=== PATIENT | female | born 1975 | race Caucasian/White ===

== ENCOUNTER 2017-01-01 20:14 | Emergency (ER) | payer OTHER, MEDICAID ==
[~2017-01-01] VITALS: Ht 167.6 cm; Wt 68.0 kg
[~2017-01-01 20:14] MED LIST: ARIP5TAB6 PO; ASPI1TAB30 PO; CLON1TAB PO; CLON1TAB3 PO; DICY10CA53 PO; DIVA500T2 PO; FLUO40CA2 PO; FLUT1DIS3 IH; FLUT1DIS3 INH; GABA-587 PO; GABA800T2 PO; HYDR25TA PO; IPRA3AMP23 IH; LEVO50TA5 PO; LURA40TA PO; MELA3TAB PO; METO10TA81 PO; METR500T PO; OMEP20TA PO; ONDA4TAB10 PO; ONDA4TAB10 SL; OXCA300T PO; POTA20TA12 PO; PRAZ2CAP2 PO; PRED5TAB19 PO; SERT100T8 PO; VENTOLIN HFA18 GM IH
[2017-01-01 21:30] LABS: BASO # 0.1 x10^3/uL (0.0-0.2); BASO % 1 % (0-3); EOS % 6 % (0-3); HEMATOCRIT 43.8 % (36.0-47.0); HEMOGLOBIN 13.9 g/dL (12.0-15.5); LYMPH # 2.6 x10^3/uL (1.0-4.8); LYMPH % 36 % (24-48); MEAN CORPUSCULAR HEMOGLOBIN 26 pg (25-35); MEAN CORPUSCULAR HGB CONC 32 g/dL (31-37); MEAN CORPUSCULAR VOLUME 82 fL (79-100); MONO % 8 % (0-9); NEUT % 49 % (31-73); PLATELET COUNT 296 x10^3/uL (140-400); RED BLOOD COUNT 5.34 x10^6/uL (3.50-5.40); RED CELL DISTRIBUTION WIDTH 15.2 % (11.5-14.5); WHITE BLOOD COUNT 7.1 x10^3/uL (4.0-11.0)
[2017-01-01] MEDS ORDERED: IV NORMAL SALINE 1000ML BAG 1,000 ML IV ONE (21:30)
[2017-01-01] MEDS ORDERED: METOCLOPRAMIDE HCL 10 MG/2 ML VIAL. IV ONE (21:30)
[2017-01-01] MEDS ORDERED: DIPHENHYDRAMINE 50 MG/ML VIAL IVP ONE (21:30)
--- NOTE | 2017-01-01 21:35 | PHYS DOC ---
Past Medical History Past Medical History: Asthma, Cancer, Other Additional Past Medical Histor: CHRONIC N/V,GASTROPARESIS,OVARIAN CA,IBS Past Surgical History: Appendectomy, Hysterectomy, Oophorectomy, Other Additional Past Surgical Histo: PELVIC MESH,HERNIA,L OVARY & FALLOPIAN TUBE REMOVED Alcohol Use: None Drug Use: None Adult General Chief Complaint Chief Complaint: NAUSEA/VOMITING/DIARRHA HPI HPI 41-year-old female with a history of gastroparesis presents with a several day history of epigastric pain nausea and vomiting. She states she's vomited so hard she has her low back. She denies any melena or hematemesis. She states she' s been unable to control her symptoms with her typical medications. [] Review of Systems Review of Systems Constitutional: Denies fever or chills [] Eyes: Denies change in visual acuity, redness, or eye pain [] HENT: Denies nasal congestion or sore throat [] Respiratory: Denies cough or shortness of breath [] Cardiovascular: No additional information not addressed in HPI [] GI: Denies abdominal pain, nausea, vomiting, bloody stools or diarrhea [] : Denies dysuria or hematuria [] Musculoskeletal: Denies back pain or joint pain [] Integument: Denies rash or skin lesions [] Neurologic: Denies headache, focal weakness or sensory changes [] Endocrine: Denies polyuria or polydipsia [] Current Medications Current Medications Current Medications Medications (Trade) Dose Ordered Sig/Anmol Start Time Stop Time Status Last Admin Dose Admin Albuterol/ Ipratropium (Duoneb) 3 ml 1X ONCE 01/01/17 22:30 01/01/17 22:31 DC 01/01/17 22:32 3 ML Diphenhydramine HCl (Benadryl) 25 mg 1X ONCE 01/01/17 21:30 01/01/17 21:31 DC 01/01/17 21:34 25 MG Fentanyl Citrate (Fentanyl 2ml Vial) 50 mcg 1X ONCE 01/01/17 22:00 01/01/17 22:01 DC 01/01/17 22:00 50 MCG Metoclopramide HCl (Reglan) 10 mg 1X ONCE 01/01/17 21:30 01/01/17 21:31 DC 01/01/17 21:34 10 MG Sodium Chloride (Iv Sodium Chloride 0.9% 1000ml Bag) 1,000 ml @ 1,000 mls/hr 1X ONCE 01/01/17 21:30 01/01/17 22:29 DC 01/01/17 21:34 1,000 MLS/HR Allergies Allergies Allergies Coded Allergies Type Severity Reaction Last Updated Verified Sulfa (Sulfonamide Antibiotics) Allergy Intermediate hives 01/27/16 Yes ciprofloxacin Allergy Intermediate swelling 01/27/16 Yes ciprofloxacin HCl Allergy Intermediate swelling 01/27/16 Yes morphine Allergy Intermediate Hives-TOLERATES DILAUDID 01/27/16 Yes quetiapine fumarate Allergy Intermediate "jolts going throgh my body" 01/27/16 Yes Haloperidol Lactate Adverse Reaction Intermediate Altered Mental Status Yes erythromycin base Adverse Reaction Intermediate "IT CAUSED ME TO BE BED SICK FOR A WEEK" 01/27/16 Yes haloperidol Adverse Reaction Intermediate Altered Mental Status 01/27/16 Yes somatropin Adverse Reaction Intermediate Acathasia 01/27/16 Yes Physical Exam Physical Exam Constitutional: Well developed, well nourished, no acute distress, non-toxic appearance. [] HENT: Normocephalic, atraumatic, bilateral external ears normal, oropharynx moist, no oral exudates, nose normal. [] Eyes: PERRLA, EOMI, conjunctiva normal, no discharge. [] Neck: Normal range of motion, no tenderness, supple, no stridor. [] Cardiovascular:Heart rate regular rhythm, no murmur [] Lungs & Thorax: Mild apical wheezing no rales [] Abdomen: Bowel sounds normal, soft, no tenderness, no masses, no pulsatile masses. [] Skin: Warm, dry, no erythema, no rash. [] Back: No tenderness, no CVA tenderness. [] Extremities: No tenderness, no cyanosis, no clubbing, ROM intact, no edema. [] Neurologic: Alert and oriented X 3, normal motor function, normal sensory function, no focal deficits noted. [] Psychologic: Affect normal, judgement normal, mood normal. [] Current Patient Data Vital Signs Vital Signs Date Time Temp Pulse Resp B/P Pulse Ox O2 Delivery O2 Flow Rate FiO2 01/01/17 22:30 93 Room Air 01/01/17 22:00 20 01/01/17 20:17 97.7 76 120/81 97.7 Lab Values Laboratory Tests Test 01/01/17 20:06 3/27/17 21:05 POC Urine HCG, Qualitative Hcg negative (Negative) White Blood Count 7.1x10^3/uL (4.0-11.0) Red Blood Count 5.34x10^6/uL (3.50-5.40) Hemoglobin 13.9g/dL (12.0-15.5) Hematocrit 43.8% (36.0-47.0) Mean Corpuscular Volume 82fL (79-100) Mean Corpuscular Hemoglobin 26pg (25-35) Mean Corpuscular Hemoglobin Concent 32g/dL (31-37) Red Cell Distribution Width 15.2% (11.5-14.5) H Platelet Count 296x10^3/uL (140-400) Neutrophils (%) (Auto) 49% (31-73) Lymphocytes (%) (Auto) 36% (24-48) Monocytes (%) (Auto) 8% (0-9) Eosinophils (%) (Auto) 6% (0-3) H Basophils (%) (Auto) 1% (0-3) Neutrophils # (Auto) 3.5x10^3uL (1.8-7.7) Lymphocytes # (Auto) 2.6x10^3/uL (1.0-4.8) Monocytes # (Auto) 0.6x10^3/uL (0.0-1.1) Eosinophils # (Auto) 0.4x10^3/uL (0.0-0.7) Basophils # (Auto) 0.1x10^3/uL (0.0-0.2) Sodium Level 142mmol/L (136-145) Potassium Level 3.3mmol/L (3.5-5.1) L Chloride Level 103mmol/L (98-107) Carbon Dioxide Level 28mmol/L (21-32) Anion Gap 11 (6-14) Blood Urea Nitrogen 3mg/dL (7-20) L Creatinine 0.9mg/dL (0.6-1.0) Estimated GFR (Cockcroft-Gault) 69.7 BUN/Creatinine Ratio 3 (6-20) L Glucose Level 94mg/dL (70-99) Calcium Level 9.7mg/dL (8.5-10.1) Total Bilirubin 0.3mg/dL (0.2-1.0) Aspartate Amino Transferase (AST) 27U/L (15-37) Alanine Aminotransferase (ALT) 23U/L (14-59) Alkaline Phosphatase 124U/L (46-116) H Total Protein 6.9g/dL (6.4-8.2) Albumin 3.3g/dL (3.4-5.0) L Albumin/Globulin Ratio 0.9 (1.0-1.7) L Lipase 286U/L (73-393) Laboratory Tests 01/01/17 21:05 Laboratory Tests 01/01/17 21:05 EKG EKG [] Radiology/Procedures Radiology/Procedures [] Course & Med Decision Making Course & Med Decision Making Pertinent Labs and Imaging studies reviewed. (See chart for details) [ED course: Evaluation reveals a 41-year-old female who did not appear to be in any significant distress. Her abdominal exam was essentially benign. Her laboratory studies were reviewed and she did not appear to have anything acute going on there. She was given some IV fluids and anti-medics which did help her symptoms to some degree. I've encouraged her to follow with her family doctor this week for recheck. She was also wheezing a little bit was given 1 DuoNeb treatment which did completely resolve her symptoms.] Dragon Disclaimer Dragon Disclaimer This electronic medical record was generated, in whole or in part, using a voice recognition dictation system. Departure Departure Impression: Primary Impression: Abdominal pain Disposition: 01 HOME, SELF-CARE Condition: IMPROVED Referrals: ANGEL ANDERSON Jr, MD (PCP) Patient Instructions: Gastroparesis Additional Instructions: Thank you for allowing us to participate in your care today. Followup with your primary care physician in 3 days if your symptoms do not improve. Return to the emergency department you have any new or concerning findings. This should be evaluated by the primary care physician and any necessary consulting services for continued management within a few days after discharge. Return to emergency room if you have any new or concerning symptoms including but not limited to fever, chills, nausea, vomiting, intractable pain, any new rashes, chest pain, shortness of air, uncontrolled bleeding, difficulty breathing, and/or vision loss. You may have been prescribed medication that can change in your level of thinking and ability to operate machinery. These medications include hydrocodone and Ativan. Also, Benadryl has been known to do this as well. Be sure to check with your pharmacist and ask if the medications you've prescribed can affect your level of consciousness. I recommend not operating heavy machinery or driving while on medication such as these. Scripts Promethazine HCl (Phenergan)25 Mg Supp.rect25 Mg RC Q6HRS PRN VOMITING #10 SUPP.RECT Prov:JORGE ARIAS DO 01/01/17 Problem Qualifiers Primary Impression: Abdominal pain Abdominal location: generalized Qualified Code: R10.84 - Generalized abdominal pain JORGE ARIAS DO Jan 01, 2017 21:35
[2017-01-01 21:45] LABS: CALCIUM 9.7 mg/dL (8.5-10.1); CREATININE 0.9 mg/dL (0.6-1.0); GFR 69.7; POTASSIUM 3.3 mmol/L (3.5-5.1)
[2017-01-01 21:51] LABS: ALBUMIN 3.3 g/dL (3.4-5.0); ALBUMIN/GLOBULIN RATIO 0.9 (1.0-1.7); TOTAL BILIRUBIN 0.3 mg/dL (0.2-1.0); TOTAL PROTEIN 6.9 g/dL (6.4-8.2)
[2017-01-01] MEDS ORDERED: FENTANYL PF 100 MCG/2 ML VIAL. IV ONE (22:00)
[2017-01-01] MEDS ORDERED: IPRATRPIUM/ALBUTEROL 0.5/2.5MG 3 ML NEBU. NEB ONE (22:30)
[2017-01-01 23:00] VITALS: BP 103/64
[2017-01-01] MEDS ORDERED: PROM25SU32 RC (23:21)
== END 2017-01-01 23:40 | disposition home or self-care (01) ==
LOC: ER 20:14
DX: R10.13 Epigastric pain (principal); R11.2 Nausea with vomiting, unspecified; M54.5 Low back pain; J45.909 Unspecified asthma, uncomplicated; K58.9 Irritable bowel syndrome, unspecified; Z90.710 Acquired absence of both cervix and uterus; Z90.49 Acquired absence of other specified parts of digestive tract; Z90.721 Acquired absence of ovaries, unilateral; Z88.1 Allergy status to other antibiotic agents; Z88.2 Allergy status to sulfonamides; Z88.5 Allergy status to narcotic agent; Z88.8 Allergy status to other drugs, medicaments and biological substances
CPT/HCPCS: 36415; 80053; 81025; 83690; 85027; 94250; 94640; 96361; 96374; 96375; 99285; J1200; J2765; J3010; J7030; J7620

== ENCOUNTER 2017-03-01 22:00 | Emergency (ER) | payer OTHER, MEDICAID ==
[~2017-03-01] VITALS: Ht 167.6 cm; Wt 72.6 kg
[~2017-03-01 22:00] MED LIST changes: +ARIP5TAB13 PO; -ARIP5TAB6 PO; -MELA3TAB PO; +MELA3TAB2 PO; -OMEP20TA PO; +OMEP20TA8 PO; +PROM25SU32 RC
[2017-03-01 22:40] VITALS: BP 103/75
[2017-03-01 22:49] LABS: BASO % 0 % (0-3); EOS % 5 % (0-3); HEMOGLOBIN 15.1 g/dL (12.0-15.5); LYMPH # 2.5 x10^3/uL (1.0-4.8); LYMPH % 38 % (24-48); MEAN CORPUSCULAR HEMOGLOBIN 26 pg (25-35); MEAN CORPUSCULAR HGB CONC 33 g/dL (31-37); MEAN CORPUSCULAR VOLUME 80 fL (79-100); MONO % 8 % (0-9); NEUT % 49 % (31-73); PLATELET COUNT 312 x10^3/uL (140-400); RED BLOOD COUNT 5.77 x10^6/uL (3.50-5.40); WHITE BLOOD COUNT 6.5 x10^3/uL (4.0-11.0)
--- NOTE | 2017-03-01 22:52 | PHYS DOC ---
Past Medical History Past Medical History: Asthma, Cancer, Other Additional Past Medical Histor: CHRONIC N/V,GASTROPARESIS,OVARIAN CA,IBS Past Surgical History: Appendectomy, Hysterectomy, Oophorectomy, Other Additional Past Surgical Histo: PELVIC MESH,HERNIA,L OVARY & FALLOPIAN TUBE REMOVED Alcohol Use: None Drug Use: None Adult General Chief Complaint Chief Complaint: ABDOMINAL PAIN HPI HPI Patient is a 41 year old female who presents with nausea and vomiting times a couple days consistent with an exacerbation of her previous gastroparesis denies any hematemesis point of some very mild epigastric discomfort. She's had recurrent episodes similar to this before. Surgical history includes appendectomy and right ovary removal. Denies any fever or diarrhea denies chest pain shortness of breath or cough. Review of Systems Review of Systems Constitutional: Denies fever or chills [] Eyes: Denies change in visual acuity, redness, or eye pain [] HENT: Denies nasal congestion or sore throat [] Respiratory: Denies cough or shortness of breath [] Cardiovascular: No additional information not addressed in HPI [] GI: Denies abdominal pain, nausea, vomiting, bloody stools or diarrhea [] : Denies dysuria or hematuria [] Musculoskeletal: Denies back pain or joint pain [] Integument: Denies rash or skin lesions [] Neurologic: Denies headache, focal weakness or sensory changes [] Endocrine: Denies polyuria or polydipsia [] All review systems are negative except mentioned in the history of present illness Current Medications Current Medications Current Medications Medications (Trade) Dose Ordered Sig/Anmol Start Time Stop Time Status Last Admin Dose Admin Albuterol Sulfate (Ventolin Neb Soln) 2.5 mg 1X ONCE 03/01/17 23:00 03/01/17 23:01 DC Hydromorphone HCl (Dilaudid) 2 mg STK-MED ONCE 03/01/17 23:02 03/01/17 23:03 DC Ondansetron HCl (Zofran) 4 mg 1X ONCE 03/01/17 23:00 03/01/17 23:01 DC 03/01/17 22:49 4 MG Potassium Chloride (Klor-Con) 40 meq 1X ONCE 03/01/17 23:30 03/01/17 23:31 Sodium Chloride 1,000 ml @ 1,000 mls/hr 1X ONCE 03/01/17 23:00 03/01/17 23:59 03/01/17 22:49 1,000 MLS/HR Allergies Allergies Allergies Coded Allergies Type Severity Reaction Last Updated Verified Sulfa (Sulfonamide Antibiotics) Allergy Intermediate hives 01/27/16 Yes ciprofloxacin Allergy Intermediate swelling 01/27/16 Yes ciprofloxacin HCl Allergy Intermediate swelling 01/27/16 Yes morphine Allergy Intermediate Hives-TOLERATES DILAUDID 01/27/16 Yes quetiapine fumarate Allergy Intermediate "jolts going throgh my body" 01/27/16 Yes Haloperidol Lactate Adverse Reaction Intermediate Altered Mental Status Yes erythromycin base Adverse Reaction Intermediate "IT CAUSED ME TO BE BED SICK FOR A WEEK" 01/27/16 Yes haloperidol Adverse Reaction Intermediate Altered Mental Status 01/27/16 Yes somatropin Adverse Reaction Intermediate Acathasia 01/27/16 Yes Physical Exam Physical Exam Constitutional: Well developed, well nourished, no acute distress, non-toxic appearance. [] HENT: Normocephalic, atraumatic, bilateral external ears normal, oropharynx moist, no oral exudates, nose normal. [] Eyes: PERRLA, EOMI, conjunctiva normal, no discharge. [] Neck: Normal range of motion, no tenderness, supple, no stridor. [] Cardiovascular:Heart rate regular rhythm, no murmur [] Lungs & Thorax: Bilateral breath sounds clear to auscultation [] Abdomen: Bowel sounds normal, soft, mild tenderness, no masses, no pulsatile masses. [] Skin: Warm, dry, no erythema, no rash. [] Back: No tenderness, no CVA tenderness. [] Extremities: No tenderness, no cyanosis, no clubbing, ROM intact, no edema. [] Neurologic: Alert and oriented X 3, normal motor function, normal sensory function, no focal deficits noted. [] Psychologic: Affect normal, judgement normal, mood normal. [] Current Patient Data Vital Signs Vital Signs Date Time Temp Pulse Resp B/P (MAP) Pulse Ox O2 Delivery O2 Flow Rate FiO2 03/01/17 23:04 Room Air 03/01/17 22:40 78 18 103/75 (84) 95 03/01/17 22:38 99.4 99.4 Lab Values Laboratory Tests Test 03/01/17 22:30 White Blood Count 6.5 x10^3/uL (4.0-11.0) Red Blood Count 5.77 x10^6/uL (3.50-5.40) H Hemoglobin 15.1 g/dL (12.0-15.5) Hematocrit 46.0 % (36.0-47.0) Mean Corpuscular Volume 80 fL (79-100) Mean Corpuscular Hemoglobin 26 pg (25-35) Mean Corpuscular Hemoglobin Concent 33 g/dL (31-37) Red Cell Distribution Width 17.0 % (11.5-14.5) H Platelet Count 312 x10^3/uL (140-400) Neutrophils (%) (Auto) 49 % (31-73) Lymphocytes (%) (Auto) 38 % (24-48) Monocytes (%) (Auto) 8 % (0-9) Eosinophils (%) (Auto) 5 % (0-3) H Basophils (%) (Auto) 0 % (0-3) Neutrophils # (Auto) 3.2 x10^3uL (1.8-7.7) Lymphocytes # (Auto) 2.5 x10^3/uL (1.0-4.8) Monocytes # (Auto) 0.5 x10^3/uL (0.0-1.1) Eosinophils # (Auto) 0.3 x10^3/uL (0.0-0.7) Basophils # (Auto) 0.0 x10^3/uL (0.0-0.2) Sodium Level 142 mmol/L (136-145) Potassium Level 2.9 mmol/L (3.5-5.1) *L Chloride Level 101 mmol/L (98-107) Carbon Dioxide Level 33 mmol/L (21-32) H Anion Gap 8 (6-14) Blood Urea Nitrogen 4 mg/dL (7-20) L Creatinine 1.1 mg/dL (0.6-1.0) H Estimated GFR (Cockcroft-Gault) 55.3 BUN/Creatinine Ratio 4 (6-20) L Glucose Level 87 mg/dL (70-99) Calcium Level 10.4 mg/dL (8.5-10.1) H Total Bilirubin 0.4 mg/dL (0.2-1.0) Aspartate Amino Transferase (AST) 33 U/L (15-37) Alanine Aminotransferase (ALT) 28 U/L (14-59) Alkaline Phosphatase 142 U/L (46-116) H Total Protein 7.9 g/dL (6.4-8.2) Albumin 3.5 g/dL (3.4-5.0) Albumin/Globulin Ratio 0.8 (1.0-1.7) L Lipase 225 U/L (73-393) Laboratory Tests 03/01/17 22:30 Laboratory Tests 03/01/17 22:30 EKG EKG [] Radiology/Procedures Radiology/Procedures [] Course & Med Decision Making Course & Med Decision Making Pertinent Labs and Imaging studies reviewed. (See chart for details) Plan will be to check some labs and IV fluids supportive care Potassium was slightly decreased and she was given oral potassium. [] Dragon Disclaimer Dragon Disclaimer This electronic medical record was generated, in whole or in part, using a voice recognition dictation system. Departure Departure Impression: Primary Impression: Vomiting Additional Impression: Gastroparesis Referrals: ANGEL ANDERSON Jr, MD (PCP) Problem Qualifiers ROCÍO RUVALCABA MD March 01, 2017 22:52
[2017-03-01] MEDS ORDERED: ALBUTEROL SULFATE 2.5 MG/3 ML NEBU. NEB ONE (23:00)
[2017-03-01] MEDS ORDERED: IV NORMAL SALINE 1000ML BAG 1,000 ML IV ONE (23:00)
[2017-03-01] MEDS ORDERED: ONDANSETRON PF 4 MG/2 ML VIAL. IV ONE (23:00)
[2017-03-01] MEDS ORDERED: HYDROmorphone 2 MG/ML VIAL ONE (23:02)
[2017-03-01 23:10] LABS: ALBUMIN 3.5 g/dL (3.4-5.0); ALBUMIN/GLOBULIN RATIO 0.8 (1.0-1.7); CALCIUM 10.4 mg/dL (8.5-10.1); CREATININE 1.1 mg/dL (0.6-1.0); GFR 55.3; TOTAL BILIRUBIN 0.4 mg/dL (0.2-1.0); TOTAL PROTEIN 7.9 g/dL (6.4-8.2)
[2017-03-01 23:13] LABS: POTASSIUM 2.9 mmol/L (3.5-5.1)
[2017-03-01] MEDS ORDERED: POTASSIUM CHLORIDE 20 MEQ TABLET.ER. PO ONE (23:30)
[2017-03-01] MEDS ORDERED: HYDROmorphone 2 MG/ML VIAL IV ONE (23:30)
[2017-03-01] MEDS ORDERED: PROM12.56 PO (23:44)
[2017-03-02] MEDS ORDERED: ONDANSETRON PF 4 MG/2 ML VIAL. IV ONE
[2017-03-02] MEDS ORDERED: ACETAMINOPHEN 500 MG TABLET PO ONE (00:15)
== END 2017-03-02 00:07 | disposition home or self-care (01) ==
LOC: ER 22:00
DX: R11.2 Nausea with vomiting, unspecified (principal); K31.84 Gastroparesis; J45.909 Unspecified asthma, uncomplicated; Z90.710 Acquired absence of both cervix and uterus; Z90.722 Acquired absence of ovaries, bilateral; Z90.49 Acquired absence of other specified parts of digestive tract; Z88.1 Allergy status to other antibiotic agents; Z88.5 Allergy status to narcotic agent; Z88.8 Allergy status to other drugs, medicaments and biological substances
CPT/HCPCS: 36415; 80053; 83690; 85027; 94250; 94640; 96361; 96374; 96375; 96376; 99284; J1170; J2405; J7030; 99285-25

== ENCOUNTER 2017-03-28 07:11 | Emergency (ER) | payer OTHER, MEDICAID ==
[~2017-03-28] VITALS: Ht 167.6 cm; Wt 72.6 kg
[~2017-03-28 07:11] MED LIST changes: +PROM12.56 PO
--- NOTE | 2017-03-28 07:48 | PHYS DOC ---
Past Medical History Past Medical History: Asthma, Cancer, GERD, Other Additional Past Medical Histor: CHRONIC N/V,GASTROPARESIS,OVARIAN CA,IBS Past Surgical History: Appendectomy, Hysterectomy, Oophorectomy, Other Additional Past Surgical Histo: PELVIC MESH,HERNIA,L OVARY & FALLOPIAN TUBE REMOVED Alcohol Use: None Drug Use: None Adult General Chief Complaint Chief Complaint: LOSS OF CONSCIOUSNESS HPI HPI Patient is a 41 year old female with history of gastroparesis, acid reflex, who presents today with nausea vomiting and midepigastric abdominal pain that began 3 days ago. Patient also states she's been passing out since this morning. Patient denies any chest pain or shortness of breath. Review of Systems Review of Systems Constitutional: Denies fever or chills [] Eyes: Denies change in visual acuity, redness, or eye pain [] HENT: Denies nasal congestion or sore throat [] Respiratory: Denies cough or shortness of breath [] Cardiovascular: No additional information not addressed in HPI [] GI: Nausea and vomiting : Denies dysuria or hematuria [] Musculoskeletal: Denies back pain or joint pain [] Integument: Denies rash or skin lesions [] Neurologic: syncope Endocrine: Denies polyuria or polydipsia [] Current Medications Current Medications Current Medications Medications (Trade) Dose Ordered Sig/Anmol Start Time Stop Time Status Last Admin Dose Admin Hydromorphone HCl (Dilaudid) 1 mg 1X ONCE 03/28/17 08:00 03/28/17 08:01 DC 03/28/17 08:14 1 MG Ondansetron HCl (Zofran) 4 mg 1X ONCE 03/28/17 09:30 03/28/17 09:31 DC 03/28/17 09:33 4 MG Potassium Chloride (KCl Oral Soln) 40 meq 1X ONCE 03/28/17 09:30 03/28/17 09:31 DC 03/28/17 09:33 40 MEQ Sodium Chloride 1,000 ml @ 1,000 mls/hr 1X ONCE 03/28/17 08:00 03/28/17 08:59 DC 03/28/17 08:14 1,000 MLS/HR Allergies Allergies Allergies Coded Allergies Type Severity Reaction Last Updated Verified Sulfa (Sulfonamide Antibiotics) Allergy Intermediate hives 01/27/16 Yes ciprofloxacin Allergy Intermediate swelling 01/27/16 Yes ciprofloxacin HCl Allergy Intermediate swelling 01/27/16 Yes morphine Allergy Intermediate Hives-TOLERATES DILAUDID 01/27/16 Yes quetiapine fumarate Allergy Intermediate "jolts going throgh my body" 01/27/16 Yes Haloperidol Lactate Adverse Reaction Intermediate Altered Mental Status Yes erythromycin base Adverse Reaction Intermediate "IT CAUSED ME TO BE BED SICK FOR A WEEK" 01/27/16 Yes haloperidol Adverse Reaction Intermediate Altered Mental Status 01/27/16 Yes somatropin Adverse Reaction Intermediate Acathasia 01/27/16 Yes Physical Exam Physical Exam Constitutional: Well developed, well nourished, no acute distress, non-toxic appearance. [] HENT: Normocephalic, atraumatic, bilateral external ears normal, oropharynx moist, no oral exudates, nose normal. [] Eyes: PERRLA, EOMI, conjunctiva normal, no discharge. [] Neck: Normal range of motion, no tenderness, supple, no stridor. [] Cardiovascular:Heart rate regular rhythm, no murmur [] Lungs & Thorax: Bilateral breath sounds clear to auscultation [] Abdomen: Healed old surgical incision on the mid abdomen. Bowel sounds normal, soft, mild midepigastric abdominal tenderness, no right upper quadrant or right lower quadrant tenderness. No masses, no pulsatile masses. [] Skin: Warm, dry, no erythema, no rash. [] Back: No tenderness, no CVA tenderness. [] Extremities: No tenderness, no cyanosis, no clubbing, ROM intact, no edema. [] Neurologic: Alert and oriented X 3, normal motor function, normal sensory function, no focal deficits noted. [] Psychologic: Affect normal, judgement normal, mood normal. [] Current Patient Data Vital Signs Vital Signs Date Time Temp Pulse Resp B/P (MAP) Pulse Ox O2 Delivery O2 Flow Rate FiO2 03/28/17 09:30 60 18 96 03/28/17 07:29 97.8 101/62 (75) Room Air 97.8 Lab Values Laboratory Tests Test 03/28/17 07:49 03/28/17 08:07 White Blood Count 6.8 x10^3/uL (4.0-11.0) Red Blood Count 4.89 x10^6/uL (3.50-5.40) Hemoglobin 13.2 g/dL (12.0-15.5) Hematocrit 39.9 % (36.0-47.0) Mean Corpuscular Volume 82 fL (79-100) Mean Corpuscular Hemoglobin 27 pg (25-35) Mean Corpuscular Hemoglobin Concent 33 g/dL (31-37) Red Cell Distribution Width 16.3 % (11.5-14.5) H Platelet Count 273 x10^3/uL (140-400) Neutrophils (%) (Auto) 58 % (31-73) Lymphocytes (%) (Auto) 29 % (24-48) Monocytes (%) (Auto) 7 % (0-9) Eosinophils (%) (Auto) 5 % (0-3) H Basophils (%) (Auto) 1 % (0-3) Neutrophils # (Auto) 4.0 x10^3uL (1.8-7.7) Lymphocytes # (Auto) 2.0 x10^3/uL (1.0-4.8) Monocytes # (Auto) 0.5 x10^3/uL (0.0-1.1) Eosinophils # (Auto) 0.3 x10^3/uL (0.0-0.7) Basophils # (Auto) 0.1 x10^3/uL (0.0-0.2) Sodium Level 145 mmol/L (136-145) Potassium Level 2.7 mmol/L (3.5-5.1) *L Chloride Level 105 mmol/L (98-107) Carbon Dioxide Level 33 mmol/L (21-32) H Anion Gap 7 (6-14) Blood Urea Nitrogen 4 mg/dL (7-20) L Creatinine 1.1 mg/dL (0.6-1.0) H Estimated GFR (Cockcroft-Gault) 55.3 BUN/Creatinine Ratio 4 (6-20) L Glucose Level 68 mg/dL (70-99) L Calcium Level 10.1 mg/dL (8.5-10.1) Total Bilirubin 0.3 mg/dL (0.2-1.0) Aspartate Amino Transferase (AST) 25 U/L (15-37) Alanine Aminotransferase (ALT) 22 U/L (14-59) Alkaline Phosphatase 111 U/L (46-116) Troponin I Quantitative 0.020 ng/mL (0.000-0.055) Total Protein 6.5 g/dL (6.4-8.2) Albumin 2.9 g/dL (3.4-5.0) L Albumin/Globulin Ratio 0.8 (1.0-1.7) L Lipase 233 U/L (73-393) Ethyl Alcohol Level < 10 mg/dL (0-10) Urine Collection Type Unknown Urine Color Yellow Urine Clarity Cloudy Urine pH 8.0 Urine Specific [place] 1.015 Urine Protein 30 mg/dL (NEG-TRACE) Urine Glucose (UA) Negative mg/dL (NEG) Urine Ketones (Stick) Negative mg/dL (NEG) Urine Blood Negative (NEG) Urine Nitrite Negative (NEG) Urine Bilirubin Negative (NEG) Urine Urobilinogen Dipstick 0.2 mg/dL (0.2 mg/dL) Urine Leukocyte Esterase Small (NEG) Urine RBC Occ /HPF (0-2) Urine WBC 11-20 /HPF (0-4) Urine Squamous Epithelial Cells Occ /LPF Urine Amorphous Sediment Present /HPF Urine Bacteria Mod /HPF (0-FEW) Urine Opiates Screen Neg (NEG) Urine Methadone Screen Neg (NEG) Urine Barbiturates Neg (NEG) Urine Phencyclidine Screen Neg (NEG) Urine Amphetamine/Methamphetamine Neg (NEG) Urine Benzodiazepines Screen Neg (NEG) Urine Cocaine Screen Neg (NEG) Urine Cannabinoids Screen Pos (NEG) Urine Ethyl Alcohol Neg (NEG) Laboratory Tests 03/28/17 07:49 Laboratory Tests 03/28/17 07:49 EKG EKG [address] Arriaga, sinus rhythm, HR 69 no STEMI[] Radiology/Procedures Radiology/Procedures [] Course & Med Decision Making Course & Med Decision Making Pertinent Labs and Imaging studies reviewed. (See chart for details) This is a 41-year-old female patient with history of gastroparesis who presents today with nausea vomiting for 3 days and syncope episodes since this morning. CT of the head was negative for any acute findings. CBC, lipase with no acute findings. Urine with small amount of leukocytes and bacteria. Highly suspect it's contaminated. Patient has no urgency frequency or dysuria. CMP with potassium of 2.7. Patient was given oral potassium 40 mEq 2 in the ED. Discharged with potassium by mouth. Patient is tolerating by mouth intake well after receiving IV fluid Dilaudid and Zofran. We recommended patient to follow up with the primary care doctor. Patient has marijuana in her system. This could also be the source of her nausea and vomiting. Advised against Marijuana use. Discharged with [facility]. Instructed to follow-up with her own PCP Leonardo Disclaimer Leonardo Disclaimer This electronic medical record was generated, in whole or in part, using a voice recognition dictation system. Departure Departure Impression: Primary Impression: Hypokalemia Additional Impressions: Gastroparesis Marijuana use Syncope Disposition: HOME, SELF-CARE Condition: STABLE Referrals: ANGEL ANDERSON Jr, MD (PCP) Follow-up with your own doctor as soon as possible Patient Instructions: Gastroparesis, Hypokalemia-Brief, Syncope, [id number] Additional Instructions: You were seen for nausea and vomiting. Please consider not using marijuana. It increases episodes of nausea and vomiting. Increase your dietary potassium intake. Foods like bananas help. Take the potassium pills as prescribed as ordered. Follow-up with your doctor as soon as possible. Scripts Potassium Chloride (POTASSIUM CHLORIDE) 20 Meq Tablet.er 20 MEQ PO DAILY, #5 TAB.SR Prov: DANNY MALCOLM APRN 03/28/17 Ondansetron (ZOFRAN ODT) 4 Mg Tab.rapdis 1 TAB SL Q8HRS, #15 TAB Prov: DANNY MALCOLM APRN 03/28/17 Problem Qualifiers Additional Impressions: Syncope Syncope type: unspecified Qualified Codes: R55 - Syncope and collapse DANNY MALCOLM APRN Mar 28, 2017 07:48
[2017-03-28 07:58] LABS: BASO # 0.1 x10^3/uL (0.0-0.2); BASO % 1 % (0-3); EOS % 5 % (0-3); HEMATOCRIT 39.9 % (36.0-47.0); HEMOGLOBIN 13.2 g/dL (12.0-15.5); LYMPH % 29 % (24-48); MEAN CORPUSCULAR HEMOGLOBIN 27 pg (25-35); MEAN CORPUSCULAR HGB CONC 33 g/dL (31-37); MEAN CORPUSCULAR VOLUME 82 fL (79-100); MONO % 7 % (0-9); NEUT % 58 % (31-73); PLATELET COUNT 273 x10^3/uL (140-400); RED BLOOD COUNT 4.89 x10^6/uL (3.50-5.40); RED CELL DISTRIBUTION WIDTH 16.3 % (11.5-14.5); WHITE BLOOD COUNT 6.8 x10^3/uL (4.0-11.0)
[2017-03-28] MEDS ORDERED: HYDROmorphone 2 MG/ML VIAL IV ONE ×2 (08:00→10:15)
[2017-03-28] MEDS ORDERED: ONDANSETRON PF 4 MG/2 ML VIAL. IV ONE ×2 (08:00→09:30)
[2017-03-28] MEDS ORDERED: IV NORMAL SALINE 1000ML BAG 1,000 ML IV ONE (08:00)
[2017-03-28 08:14] LABS: ALBUMIN 2.9 g/dL (3.4-5.0); ALBUMIN/GLOBULIN RATIO 0.8 (1.0-1.7); CALCIUM 10.1 mg/dL (8.5-10.1); CREATININE 1.1 mg/dL (0.6-1.0); GFR 55.3; TOTAL BILIRUBIN 0.3 mg/dL (0.2-1.0); TOTAL PROTEIN 6.5 g/dL (6.4-8.2)
[2017-03-28 08:19] LABS: POTASSIUM 2.7 mmol/L (3.5-5.1)
[2017-03-28 08:25] LABS: BILIRUBIN,URINE NEGATIVE (NEG); GLUCOSE,URINE NEGATIVE (NEG); NITRITE,URINE NEGATIVE (NEG); PROTEIN,URINE 30 mg/dL (NEG-TRACE); UROBILINOGEN,URINE 0.2 mg/dL (0.2 mg/dL)
[2017-03-28 08:29] LABS: BACTERIA,URINE MOD /HPF (0-FEW); RBC,URINE OCC /HPF (0-2); SQUAMOUS EPITHELIAL CELL,UR OCC /LPF
[2017-03-28] MEDS ORDERED: POTASSIUM CHLORIDE 20 MEQ/15 ML ORAL LIQUID. PO ONE ×2 (08:30→09:30)
[2017-03-28 08:32] LABS: BARBITURATES NEG (NEG); BENZODIAZEPINES NEG (NEG); CANNABINOIDS POS (NEG); COCAINE NEG (NEG); METHADONE NEG (NEG); OPIATES NEG (NEG); PHENCYCLIDINE NEG (NEG)
--- NOTE | 2017-03-28 08:32 | RAD ---
Indication syncopal episode. Noncontrast images of the head were obtained and are compared to an examination almost 2 years earlier. The calvarium appears unremarkable. The visualized paranasal sinuses appear normal. There is no subdural or epidural hematoma. Ventricles and sulci are normal. There is no mass or midline shift. No hemorrhage is seen. No acute intracranial finding is apparent. IMPRESSION: No acute or significant finding seen on noncontrast CT images of the head PQRS Compliance Statement: One or more of the following individualized dose reduction techniques were utilized for this examination: 1. Automated exposure control 2. Adjustment of the mA and/or kV according to patient size 3. Use of iterative reconstruction technique
--- NOTE | 2017-03-28 08:40 | ACF ---
Admission Forms Criteria SYNCOPE Clinical Indications for Admission to Inpatient Care ( Place 'X' for any and all applicable criteria): Admission is indicated for syncope and ANY ONE of the following (1)(2)(3)(4)(5) (6)(7) : [X]I. Inpatient admission required rather than observation care (Also use Syncope: Observation Care Criteria as appropriate) because of ANY ONE of the following: [ ]a) Hemodynamic instability that is severe or persistent [ ]b) Cardiac arrhythmias of immediate concern identified or strongly suspected (eg, needs electrophysiologic study) [ ]c) Acute coronary syndrome identified (Also use Myocardial Infarction or Angina Criteria form ) [ ]d) Structural cardiac disorder (eg, aortic stenosis) suspected as cause that requires immediate correction [ ]e) Respiratory symptoms (eg, dyspnea, tachypnea) that are severe or persistent [ ]f) Neurologic signs or symptoms that are severe or persistent ( eg, stroke, seizures, altered mental status) [ ]g) Severe electrolyte abnormalities requiring inpatient care [ ]h) Supplemental oxygen or respiratory treatment for over 24 hrs that are performable only in acute inpatient setting [ ]i) IV fluid to replace significant ongoing (eg, for over 24 hrs ) losses (>3 L/m2 per day) [ ]j) Continuous intravenous infusion of anticoagulation, platelet inhibitor, vasoactive, or antiarrhythmic medication(15)(16) [ ]k) Pulmonary artery catheter monitoring [ ]l) Temporary pacemaker placement(17) [ ]m) Emergent cardioversion(18) [X]n) Other conditions, treatment or monitoring requiring inpatient admission [ ]II. Suspicion of imminently dangerous cause (eg, rare causes like pericardial tamponade, pulmonary embolism) [ ]III. Syncope causing severe injury requiring hospitalization Extended stay beyond goal length of stay may be needed for(28) [ ]a) Dangerous arrhythmia(15)(23)(27)(29) [ ]b) Myocardial ischemia [ ]c) Seizure disorder [ ]d) Syncope-related injuries The original [employer] content created by [employer] has been revised. The portions of the content which have been revised are identified through the use of italic text or in bold, and [employer] has neither reviewed nor approved the modified material. All other unmodified content is copyright [employer]. Please see references footnoted in the original [facility] edition 2016 JUSTINO NAVARRETE Mar 28, 2017 08:40
[2017-03-28 09:30] VITALS: BP 105/63
[2017-03-28] MEDS ORDERED: ONDA4TAB10 SL (10:05)
[2017-03-28] MEDS ORDERED: POTA20TA82 PO (10:05)
[2017-03-28] MEDS ORDERED: PROCHLORPERAZINE 10 MG/2 ML VIAL. IV ONE (10:15)
--- NOTE | 2017-03-28 15:02 | EKG ---
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
== END 2017-03-28 10:42 | disposition home or self-care (01) ==
LOC: ER 07:11
DX: K31.84 Gastroparesis (principal); R55 Syncope and collapse; E87.6 Hypokalemia; J45.909 Unspecified asthma, uncomplicated; K21.9 Gastro-esophageal reflux disease without esophagitis; K58.9 Irritable bowel syndrome, unspecified; F12.90 Cannabis use, unspecified, uncomplicated; Z90.49 Acquired absence of other specified parts of digestive tract; Z90.721 Acquired absence of ovaries, unilateral; Z88.2 Allergy status to sulfonamides; Z88.5 Allergy status to narcotic agent; Z88.8 Allergy status to other drugs, medicaments and biological substances
CPT/HCPCS: 36415; 70450; 80053; 80305; 80320; 81001; 83690; 84484; 85027; 93005; 96361; 96374; 96375; 96376; 99285; J0780; J1170; J2405; J7030; G0480; G0481

== ENCOUNTER 2017-04-15 15:07 | Emergency (ER) | payer OTHER, MEDICAID ==
[~2017-04-15] VITALS: Ht 167.6 cm; Wt 72.6 kg
[~2017-04-15 15:07] MED LIST changes: +POTA20TA82 PO
[2017-04-15] MEDS ORDERED: ONDANSETRON PF 4 MG/2 ML VIAL. IV ONE (16:00)
[2017-04-15] MEDS ORDERED: HYDROmorphone 2 MG/ML VIAL IV ONE (16:00)
[2017-04-15] MEDS ORDERED: IV NORMAL SALINE 1000ML BAG 1,000 ML IV ONE (16:00)
--- NOTE | 2017-04-15 16:01 | PHYS DOC ---
Past Medical History Past Medical History: Asthma, Cancer, GERD, Other Additional Past Medical Histor: CHRONIC N/V,GASTROPARESIS,OVARIAN CA,IBS Past Surgical History: Appendectomy, Hysterectomy, Oophorectomy, Other Additional Past Surgical Histo: PELVIC MESH,HERNIA,L OVARY & FALLOPIAN TUBE REMOVED Alcohol Use: None Drug Use: Marijuana Adult General Chief Complaint Chief Complaint: ABDOMINAL PAIN HPI HPI Patient is a 41 year old female who presents with 3 days of intermittent chills vomiting and diarrhea. Denies fever chest pain or shortness of breath. Decreased appetite. Cough is involving gastroparesis of unknown etiology total abdominal hysterectomy which found ovarian cancer and a small mass that was encapsulated. Also has a history of hernia repair and pelvic mesh placement. Diarrhea is watery and not bloody mild to moderate severity. They poorly localized mild to moderate abdominal discomfort and pain radiates slightly to the back. No dysuria or frequency or flank pain. Review of Systems Review of Systems Constitutional: Denies fever or chills [] Eyes: Denies change in visual acuity, redness, or eye pain [] HENT: Denies nasal congestion or sore throat [] Respiratory: Denies cough or shortness of breath [] Cardiovascular: No additional information not addressed in HPI [] GI: Denies abdominal pain, nausea, vomiting, bloody stools or diarrhea [] : Denies dysuria or hematuria [] Musculoskeletal: Denies back pain or joint pain [] Integument: Denies rash or skin lesions [] Neurologic: Denies headache, focal weakness or sensory changes [] Endocrine: Denies polyuria or polydipsia [ All review systems are negative except as mentioned in the history of present illness.] Current Medications Current Medications Current Medications Medications (Trade) Dose Ordered Sig/Anmol Start Time Stop Time Status Last Admin Dose Admin Diphenhydramine HCl (Benadryl) 25 mg 1X ONCE 04/15/17 18:00 04/15/17 18:01 DC 04/15/17 17:51 25 MG Hydromorphone HCl (Dilaudid) 1 mg 1X ONCE 04/15/17 16:00 04/15/17 16:01 DC 04/15/17 16:10 1 MG Info (Do NOT chart on this entry -- for MONITORING) 1 each PRN DAILY PRN 04/15/17 17:15 04/15/17 20:01 DC Iohexol (Omnipaque 300 Mg/ml) 75 ml 1X ONCE 04/15/17 17:30 04/15/17 17:31 DC 04/15/17 17:11 75 ML Metoclopramide HCl (Reglan) 5 mg 1X ONCE 04/15/17 18:00 04/15/17 18:01 DC 04/15/17 17:50 5 MG Ondansetron HCl (Zofran) 4 mg 1X ONCE 04/15/17 16:00 04/15/17 16:01 DC 04/15/17 16:10 4 MG Sodium Chloride 1,000 ml @ 1,000 mls/hr 1X ONCE 04/15/17 16:00 04/15/17 16:59 DC 04/15/17 16:10 1,000 MLS/HR Allergies Allergies Allergies Coded Allergies Type Severity Reaction Last Updated Verified Sulfa (Sulfonamide Antibiotics) Allergy Intermediate hives 01/27/16 Yes ciprofloxacin Allergy Intermediate swelling 01/27/16 Yes ciprofloxacin HCl Allergy Intermediate swelling 01/27/16 Yes morphine Allergy Intermediate Hives-TOLERATES DILAUDID 01/27/16 Yes quetiapine fumarate Allergy Intermediate "jolts going throgh my body" 01/27/16 Yes Haloperidol Lactate Adverse Reaction Intermediate Altered Mental Status Yes erythromycin base Adverse Reaction Intermediate "IT CAUSED ME TO BE BED SICK FOR A WEEK" 01/27/16 Yes haloperidol Adverse Reaction Intermediate Altered Mental Status 01/27/16 Yes somatropin Adverse Reaction Intermediate Acathasia 01/27/16 Yes Physical Exam Physical Exam Constitutional: Well developed, well nourished, no acute distress, non-toxic appearance. [] HENT: Normocephalic, atraumatic, bilateral external ears normal, oropharynx moist, no oral exudates, nose normal. [] Eyes: PERRLA, EOMI, conjunctiva normal, no discharge. [] Neck: Normal range of motion, no tenderness, supple, no stridor. [] Cardiovascular:Heart rate regular rhythm, no murmur [] Lungs & Thorax: Bilateral breath sounds clear to auscultation [] Abdomen: Bowel sounds normal, soft, no tenderness, no masses, no pulsatile masses. [] Skin: Warm, dry, no erythema, no rash. [] Back: No tenderness, no CVA tenderness. [] Extremities: No tenderness, no cyanosis, no clubbing, ROM intact, no edema. [] Neurologic: Alert and oriented X 3, normal motor function, normal sensory function, no focal deficits noted. [] Psychologic: Affect normal, judgement normal, mood normal. [] Current Patient Data Vital Signs Vital Signs Date Time Temp Pulse Resp B/P (MAP) Pulse Ox O2 Delivery O2 Flow Rate FiO2 04/15/17 19:10 77 18 99/57 (71) 98 Room Air 04/15/17 15:48 97.8 97.8 Lab Values Laboratory Tests Test 04/15/17 15:41 04/15/17 16:00 Urine Collection Type Unknown Urine Color Yellow Urine Clarity Clear Urine pH 8.0 Urine Specific [place] <=1.005 Urine Protein Negative mg/dL (NEG-TRACE) Urine Glucose (UA) Negative mg/dL (NEG) Urine Ketones (Stick) Negative mg/dL (NEG) Urine Blood Negative (NEG) Urine Nitrite Negative (NEG) Urine Bilirubin Negative (NEG) Urine Urobilinogen Dipstick 0.2 mg/dL (0.2 mg/dL) Urine Leukocyte Esterase Negative (NEG) Urine RBC 0 /HPF (0-2) Urine WBC 0 /HPF (0-4) Urine Squamous Epithelial Cells Occ /LPF Urine Bacteria 0 /HPF (0-FEW) White Blood Count 5.1 x10^3/uL (4.0-11.0) Red Blood Count 5.39 x10^6/uL (3.50-5.40) Hemoglobin 14.6 g/dL (12.0-15.5) Hematocrit 43.8 % (36.0-47.0) Mean Corpuscular Volume 81 fL (79-100) Mean Corpuscular Hemoglobin 27 pg (25-35) Mean Corpuscular Hemoglobin Concent 33 g/dL (31-37) Red Cell Distribution Width 16.9 % (11.5-14.5) H Platelet Count 240 x10^3/uL (140-400) Neutrophils (%) (Auto) 62 % (31-73) Lymphocytes (%) (Auto) 27 % (24-48) Monocytes (%) (Auto) 7 % (0-9) Eosinophils (%) (Auto) 3 % (0-3) Basophils (%) (Auto) 1 % (0-3) Neutrophils # (Auto) 3.2 x10^3uL (1.8-7.7) Lymphocytes # (Auto) 1.4 x10^3/uL (1.0-4.8) Monocytes # (Auto) 0.4 x10^3/uL (0.0-1.1) Eosinophils # (Auto) 0.1 x10^3/uL (0.0-0.7) Basophils # (Auto) 0.0 x10^3/uL (0.0-0.2) Sodium Level 140 mmol/L (136-145) Potassium Level 4.1 mmol/L (3.5-5.1) Chloride Level 104 mmol/L (98-107) Carbon Dioxide Level 24 mmol/L (21-32) Anion Gap 12 (6-14) Blood Urea Nitrogen 2 mg/dL (7-20) L Creatinine 0.8 mg/dL (0.6-1.0) Estimated GFR (Cockcroft-Gault) 79.9 BUN/Creatinine Ratio 3 (6-20) L Glucose Level 109 mg/dL (70-99) H Calcium Level 10.7 mg/dL (8.5-10.1) H Total Bilirubin 0.3 mg/dL (0.2-1.0) Aspartate Amino Transferase (AST) 27 U/L (15-37) Alanine Aminotransferase (ALT) 22 U/L (14-59) Alkaline Phosphatase 129 U/L (46-116) H Total Protein 7.1 g/dL (6.4-8.2) Albumin 3.3 g/dL (3.4-5.0) L Albumin/Globulin Ratio 0.9 (1.0-1.7) L Lipase 347 U/L (73-393) Laboratory Tests 04/15/17 16:00 Laboratory Tests 04/15/17 16:00 EKG EKG [] Radiology/Procedures Radiology/Procedures CT abdomen and pelvis was read as negative/no acute pathology per radiology report. [] Course & Med Decision Making Course & Med Decision Making Pertinent Labs and Imaging studies reviewed. (See chart for details) [Plan will be symptomatic treatment, check labs, and CT scan abdomen and pelvis. CT abdomen and pelvis was negative labs were unremarkable. Patient improvement symptomatically treatment. 7:05 PM patient feels improved and is requesting to go home.] Dragon Disclaimer Dragon Disclaimer This electronic medical record was generated, in whole or in part, using a voice recognition dictation system. Departure Departure Impression: Primary Impression: Nausea vomiting and diarrhea Additional Impression: Abdominal pain, vomiting, and diarrhea Disposition: HOME, SELF-CARE Condition: IMPROVED Referrals: ANGEL ANDERSON Jr, MD (PCP) Patient Instructions: Diarrhea, [id number], Nausea and Vomiting, [id number] Scripts Ondansetron Hcl (ZOFRAN) 4 Mg Tablet 1 TAB PO Q6HRS, #8 TAB 0 Refills Prov: ROCÍO RUVALCABA MD 04/15/17 Problem Qualifiers ROCÍO RUVALCABA MD Apr 15, 2017 16:01
[2017-04-15 16:10] LABS: BASO % 1 % (0-3); EOS % 3 % (0-3); HEMATOCRIT 43.8 % (36.0-47.0); HEMOGLOBIN 14.6 g/dL (12.0-15.5); LYMPH # 1.4 x10^3/uL (1.0-4.8); LYMPH % 27 % (24-48); MEAN CORPUSCULAR HEMOGLOBIN 27 pg (25-35); MEAN CORPUSCULAR HGB CONC 33 g/dL (31-37); MEAN CORPUSCULAR VOLUME 81 fL (79-100); MONO % 7 % (0-9); NEUT % 62 % (31-73); PLATELET COUNT 240 x10^3/uL (140-400); RED BLOOD COUNT 5.39 x10^6/uL (3.50-5.40); RED CELL DISTRIBUTION WIDTH 16.9 % (11.5-14.5); WHITE BLOOD COUNT 5.1 x10^3/uL (4.0-11.0)
[2017-04-15 16:10] LABS: BILIRUBIN,URINE NEGATIVE (NEG); GLUCOSE,URINE NEGATIVE (NEG); NITRITE,URINE NEGATIVE (NEG); PROTEIN,URINE NEGATIVE (NEG-TRACE); UROBILINOGEN,URINE 0.2 mg/dL (0.2 mg/dL)
[2017-04-15 16:14] LABS: BACTERIA,URINE 0 /HPF (0-FEW); RBC,URINE 0 /HPF (0-2); SQUAMOUS EPITHELIAL CELL,UR OCC /LPF; WBC,URINE 0 /HPF (0-4)
[2017-04-15 16:30] LABS: CALCIUM 10.7 mg/dL (8.5-10.1); CREATININE 0.8 mg/dL (0.6-1.0); GFR 79.9; POTASSIUM 4.1 mmol/L (3.5-5.1)
[2017-04-15 16:36] LABS: ALBUMIN 3.3 g/dL (3.4-5.0); ALBUMIN/GLOBULIN RATIO 0.9 (1.0-1.7); TOTAL BILIRUBIN 0.3 mg/dL (0.2-1.0); TOTAL PROTEIN 7.1 g/dL (6.4-8.2)
[2017-04-15] MEDS ORDERED: CONTRAST GIVEN MC PRN (17:15)
[2017-04-15] MEDS ORDERED: IOHEXOL 300 MG/ML 75 ML VIAL IV ONE (17:30)
--- NOTE | 2017-04-15 17:34 | RAD ---
CT ABD PELV W/ IV CONTRST ONLY dated 04/15/2017 3:54 PM Indication:DIFFUSE ABD PAIN TODAY, [id number], PRIOR SENT, HX OVARIAN CA, HERNIA REPAIR W MESH Comparison: January 27, 2016 exam. Technique: Following injection of 75 mL of Omnipaque 300 IV, images were obtained through the abdomen and pelvis. No oral contrast was given. One or more of the following individualized dose reduction techniques were utilized for this examination: 1. Automated exposure control 2. Adjustment of the mA and/or kV according to patient size 3. Use of iterative reconstruction technique Findings: There is a small hiatal hernia. The liver and spleen are normal in size without focal lesions. The pancreas, adrenal glands, and kidneys are unremarkable. There is mild bulging of the intra-abdominal fat and a bowel loop into the space between the rectus muscles, however, this does not appear to extend into the subcutaneous fat. There postoperative changes with midline scar. Multiple clips are seen in the abdomen and retroperitoneum. The unopacified bowel loops are unremarkable. The appendix is not visualized. It may be surgically absent. In the pelvis there are clips in the along the left deep pelvic lymph node chain. No pelvic mass or adenopathy is seen. The uterus is absent. No free fluid. IMPRESSION: No acute abnormality is seen in the abdomen or pelvis. There is no evidence of bowel obstruction. Small hiatal hernia. Electronically signed by: Aissatou Jeronimo MD (04/15/2017 5:30 PM) [facility]
[2017-04-15] MEDS ORDERED: METOCLOPRAMIDE HCL 10 MG/2 ML VIAL. IV ONE (18:00)
[2017-04-15] MEDS ORDERED: diphenhydrAMINE 50 MG/ML VIAL IVP ONE (18:00)
[2017-04-15] MEDS ORDERED: ONDA4TAB7 PO (19:07)
[2017-04-15 19:10] VITALS: BP 99/57
== END 2017-04-15 19:20 | disposition home or self-care (01) ==
LOC: ER 15:07
DX: R11.2 Nausea with vomiting, unspecified (principal); R19.7 Diarrhea, unspecified; R10.9 Unspecified abdominal pain; J45.909 Unspecified asthma, uncomplicated; K21.9 Gastro-esophageal reflux disease without esophagitis; K31.84 Gastroparesis; K58.9 Irritable bowel syndrome, unspecified; F12.10 Cannabis abuse, uncomplicated; Z90.710 Acquired absence of both cervix and uterus; Z90.721 Acquired absence of ovaries, unilateral; Z98.51 Tubal ligation status; Z88.2 Allergy status to sulfonamides; Z88.5 Allergy status to narcotic agent; Z88.1 Allergy status to other antibiotic agents; Z88.8 Allergy status to other drugs, medicaments and biological substances
CPT/HCPCS: 36415; 74177; 80053; 81001; 83690; 85027; 96361; 96374; 96375; 99285; J1170; J1200; J2405; J2765; J7030; Q9967

== ENCOUNTER 2017-06-08 09:38 | Observation (INO) | payer OTHER, MEDICAID ==
[~2017-06-08] VITALS: Ht 167.6 cm; Wt 70.5 kg
[~2017-06-08 09:38] MED LIST changes: -ASPI1TAB30 PO; +ASPI1TAB31 PO; +ONDA4TAB7 PO
[2017-06-08 10:56] LABS: BASO # 0.1 x10^3/uL (0.0-0.2); BASO % 1 % (0-3); EOS % 2 % (0-3); HEMOGLOBIN 14.3 g/dL (12.0-15.5); LYMPH # 2.2 x10^3/uL (1.0-4.8); LYMPH % 27 % (24-48); MEAN CORPUSCULAR HEMOGLOBIN 27 pg (25-35); MEAN CORPUSCULAR HGB CONC 34 g/dL (31-37); MEAN CORPUSCULAR VOLUME 80 fL (79-100); MONO % 8 % (0-9); NEUT % 62 % (31-73); PLATELET COUNT 313 x10^3/uL (140-400); RED BLOOD COUNT 5.23 x10^6/uL (3.50-5.40); RED CELL DISTRIBUTION WIDTH 16.2 % (11.5-14.5); WHITE BLOOD COUNT 8.2 x10^3/uL (4.0-11.0)
[2017-06-08 11:10] LABS: ALBUMIN/GLOBULIN RATIO 0.8 (1.0-1.7); CALCIUM 9.7 mg/dL (8.5-10.1); CREATININE 1.2 mg/dL (0.6-1.0); GFR 49.8; TOTAL BILIRUBIN 0.3 mg/dL (0.2-1.0); TOTAL PROTEIN 6.9 g/dL (6.4-8.2)
[2017-06-08 11:12] LABS: POTASSIUM 2.1 mmol/L (3.5-5.1)
[2017-06-08] MEDS ORDERED: IV NORMAL SALINE 1000ML BAG 1,000 ML IV ONE (11:15)
[2017-06-08] MEDS: HYDROmorphone 2 MG/ML VIAL IV PRN ×2 (11:54→12:33)
[2017-06-08] MEDS: POTASSIUM CHLORIDE 10MEQ 100 ML IV SCH ×2 (11:57→12:46)
[2017-06-08] MEDS ORDERED: IPRATRPIUM/ALBUTEROL 0.5/2.5MG 3 ML NEBU. NEB ONE (12:00)
--- NOTE | 2017-06-08 12:16 | PHYS DOC ---
Past Medical History Past Medical History: Asthma, Cancer, GERD, Other Additional Past Medical Histor: CHRONIC N/V,GASTROPARESIS,OVARIAN CA,IBS, hypokalemia Past Surgical History: Appendectomy, Hysterectomy, Oophorectomy, Other Additional Past Surgical Histo: PELVIC MESH,HERNIA,L OVARY & FALLOPIAN TUBE REMOVED Additional Information: 10/09 ppd Alcohol Use: None Drug Use: Marijuana Adult General Chief Complaint Chief Complaint: MULTIPLE COMPLAINTS HPI HPI 42-year-old female presenting to the emergency department with intermittent palpitations at home feeling dehydrated short of breath with mild chronic epigastric abdominal pain. Her pain in her belly is nonradiating intermittent and without alleviating factors. It is been present for more than 3 weeks. Review of systems is negative for fevers chills neck stiffness confusion cyanosis lethargy. All other review of systems is negative unless otherwise noted in history of present illness. ED course: 42-year-old female presenting to the emergency department today with nausea vomiting palpitations. Triage vital signs show the patient to be mildly hypotensive likely secondary to dehydration. Patient is given IV fluids. Her potassium came back as quite low. IV potassium initiated. Magnesium within normal limits. EKG was obtained which shows sinus rhythm with a regular rate. ST segments congruent. [place] is normal. Intervals show prolonged QTC intervals. Otherwise QRS is within normal limits. The patient was then admitted to our hospital for IV fluid administration and electrolyte correction. Review of Systems Review of Systems SEE ABOVE. Current Medications Current Medications Current Medications Medications (Trade) Dose Ordered Sig/Anmol Start Time Stop Time Status Last Admin Dose Admin Albuterol/ Ipratropium (Duoneb) 3 ml 1X ONCE 06/08/17 12:00 06/08/17 12:01 DC Hydromorphone HCl (Dilaudid) 0.5 mg PRN Q30MIN PRN 06/08/17 11:15 06/08/17 11:54 0.5 MG Potassium Chloride 100 ml @ 100 mls/hr Q1H 06/08/17 11:45 06/08/17 13:44 06/08/17 11:57 100 MLS/HR Sodium Chloride 1,000 ml @ 125 mls/hr Q8H 06/08/17 11:23 06/09/17 11:22 Allergies Allergies Allergies Coded Allergies Type Severity Reaction Last Updated Verified Sulfa (Sulfonamide Antibiotics) Allergy Intermediate hives 01/27/16 Yes ciprofloxacin Allergy Intermediate swelling 01/27/16 Yes ciprofloxacin HCl Allergy Intermediate swelling 01/27/16 Yes morphine Allergy Intermediate Hives-TOLERATES DILAUDID 01/27/16 Yes Haloperidol Lactate Adverse Reaction Intermediate Altered Mental Status Yes erythromycin base Adverse Reaction Intermediate "IT CAUSED ME TO BE BED SICK FOR A WEEK" 01/27/16 Yes haloperidol Adverse Reaction Intermediate Altered Mental Status 01/27/16 Yes quetiapine fumarate Adverse Reaction Intermediate "jolts going throgh my body "06/08/17 Yes somatropin Adverse Reaction Intermediate Acathasia 01/27/16 Yes Physical Exam Physical Exam SEE ABOVE Constitutional: Well developed, well nourished, no acute distress, non-toxic appearance. [] HENT: Normocephalic, atraumatic, bilateral external ears normal, oropharynx dry , no oral exudates, nose normal. [] Eyes: PERRLA, EOMI, conjunctiva normal, no discharge. [] Neck: Normal range of motion, no tenderness, supple, no stridor. [] Cardiovascular:Heart rate regular rhythm, no murmur [] Lungs & Thorax: Bilateral breath sounds clear to auscultation [] Abdomen: Bowel sounds normal, soft, no tenderness, no masses, no pulsatile masses. [] Skin: Warm, dry, no erythema, no rash. [] Back: No tenderness, no CVA tenderness. [] Extremities: No tenderness, no cyanosis, no clubbing, ROM intact, no edema. [] Neurologic: Alert and oriented X 3, normal motor function, normal sensory function, no focal deficits noted. [] Psychologic: Affect normal, judgement normal, mood normal. [] Current Patient Data Vital Signs Vital Signs Date Time Temp Pulse Resp B/P (MAP) Pulse Ox O2 Delivery O2 Flow Rate FiO2 06/08/17 11:54 Room Air 06/08/17 11:20 83 22 97/70 (79) 99 06/08/17 09:49 98.2 98.2 Lab Values Laboratory Tests Test 06/08/17 10:10 White Blood Count 8.2 x10^3/uL (4.0-11.0) Red Blood Count 5.23 x10^6/uL (3.50-5.40) Hemoglobin 14.3 g/dL (12.0-15.5) Hematocrit 42.0 % (36.0-47.0) Mean Corpuscular Volume 80 fL (79-100) Mean Corpuscular Hemoglobin 27 pg (25-35) Mean Corpuscular Hemoglobin Concent 34 g/dL (31-37) Red Cell Distribution Width 16.2 % (11.5-14.5) H Platelet Count 313 x10^3/uL (140-400) Neutrophils (%) (Auto) 62 % (31-73) Lymphocytes (%) (Auto) 27 % (24-48) Monocytes (%) (Auto) 8 % (0-9) Eosinophils (%) (Auto) 2 % (0-3) Basophils (%) (Auto) 1 % (0-3) Neutrophils # (Auto) 5.1 x10^3uL (1.8-7.7) Lymphocytes # (Auto) 2.2 x10^3/uL (1.0-4.8) Monocytes # (Auto) 0.7 x10^3/uL (0.0-1.1) Eosinophils # (Auto) 0.2 x10^3/uL (0.0-0.7) Basophils # (Auto) 0.1 x10^3/uL (0.0-0.2) Sodium Level 138 mmol/L (136-145) Potassium Level 2.1 mmol/L (3.5-5.1) *L Chloride Level 94 mmol/L (98-107) L Carbon Dioxide Level 36 mmol/L (21-32) H Anion Gap 8 (6-14) Blood Urea Nitrogen 5 mg/dL (7-20) L Creatinine 1.2 mg/dL (0.6-1.0) H Estimated GFR (Cockcroft-Gault) 49.8 BUN/Creatinine Ratio 4 (6-20) L Glucose Level 86 mg/dL (70-99) Calcium Level 9.7 mg/dL (8.5-10.1) Magnesium Level 2.0 mg/dL (1.8-2.4) Total Bilirubin 0.3 mg/dL (0.2-1.0) Aspartate Amino Transferase (AST) 31 U/L (15-37) Alanine Aminotransferase (ALT) 23 U/L (14-59) Alkaline Phosphatase 130 U/L (46-116) H Total Protein 6.9 g/dL (6.4-8.2) Albumin 3.0 g/dL (3.4-5.0) L Albumin/Globulin Ratio 0.8 (1.0-1.7) L Lipase 360 U/L (73-393) Laboratory Tests 06/08/17 10:10 Laboratory Tests 06/08/17 10:10 EKG EKG [] Radiology/Procedures Radiology/Procedures [] Course & Med Decision Making Course & Med Decision Making Pertinent Labs and Imaging studies reviewed. (See chart for details) [] Dragon Disclaimer Dragon Disclaimer This electronic medical record was generated, in whole or in part, using a voice recognition dictation system. Departure Departure Impression: Primary Impression: Abdominal pain Additional Impressions: Gastroparesis Hypokalemia Prolonged QT interval Prolonged Q-T interval on ECG Disposition: ADMITTED INPATIENT Admitting Physician: Franco Khan Condition: STABLE Referrals: ANGEL ANDERSON Jr, MD (PCP) Problem Qualifiers BRIAN ALBARADO MD Jun 08, 2017 12:16
[2017-06-08] MEDS: IV NORMAL SALINE 1000ML BAG 1,000 ML IV SCH ×2 (12:44→21:53)
[2017-06-08 15:00] VITALS: BP 126/97
--- NOTE | 2017-06-08 16:11 | EKG ---
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
--- NOTE | 2017-06-08 16:13 | PDOC2 ---
GI CONSULT Reason For Consult: GI Upset HPI: HPI: 42 y/o female admitted through the ER w/ a variety of complaints including palpitations and weakness. She also has chronic GI issues. Reports "constant" nausea w/ frequent vomiting (usually after eating, although she does regularly tolerate certain foods like egg rolls), diffuse abdominal pain, "terrible reflux " (off PPI due to geovani overgrowth requiring a "cleanse" which she feels was caused by omeprazole), and some incontinence issues w/ stool (last BM yesterday , usually has diarrhea). Reports 50 pound weight loss since last summer (but when records reviewed has lost about 7 pounds). Last EGD and colonoscopy @ [facility] for "hematemesis" in 03/2017 were normal w/ normal random biopsies. Has also had 'scopes in the past @ [facility] and [facility]. EGD in 2010 showed chronic gastritis and colonoscopy in 2013 was normal with normal random biopsies. SBCE in 2013 was negative. Additional testing includes GES ( at this facility) in 06/2015 showing moderately delayed gastric emptying w/ T1/2 of 171 min. Uses marijuana when she's really sick. PMH is additionally significant for ovarian cancer w/ tumor removal/ oophorectomy years ago w/ hysterectomy in 2012, ventral hernia repair w/ mesh, appendectomy, ?C Diff (treated w/ vanco and Flagyl), hemorrhoids. Reglan caused muscle stiffness, has an allergy to erythromycin. No GB, liver, or pancreatic history. No NSAID use or pain medication of any kind at home. Her mother would like for her to have something now. PMH: PMH: per HPI + anxiety and depression, PTSD, ?bipolar disorder, asthma and allergies , hypothyroidism FH: Family History: Cancer (stomach cancer - great grandmother) Social History: Smoke: No ALCOHOL: none Drugs: Marijuana ROS: GEN: Denies fevers, chills, sweats HEENT: Denies blurred vision, sore throat CV: +chest pain RESP: +SOA GI: Per HPI : Denies hematuria, dysuria ENDO: +weight loss NEURO: Denies confusion, dizziness MSK: +weakness SKIN: Denies jaundice, pruritus Vitals: Vitals: Vital Signs Date Time Temp Pulse Resp B/P (MAP) Pulse Ox O2 Delivery O2 Flow Rate FiO2 06/08/17 14:50 Room Air 06/08/17 12:50 85 114/72 (86) 96 06/08/17 11:30 17 06/08/17 09:49 98.2 98.2 Labs: Labs: Laboratory Tests Test 06/08/17 10:10 White Blood Count 8.2 x10^3/uL (4.0-11.0) Red Blood Count 5.23 x10^6/uL (3.50-5.40) Hemoglobin 14.3 g/dL (12.0-15.5) Hematocrit 42.0 % (36.0-47.0) Mean Corpuscular Volume 80 fL (79-100) Mean Corpuscular Hemoglobin 27 pg (25-35) Mean Corpuscular Hemoglobin Concent 34 g/dL (31-37) Red Cell Distribution Width 16.2 % (11.5-14.5) Platelet Count 313 x10^3/uL (140-400) Neutrophils (%) (Auto) 62 % (31-73) Lymphocytes (%) (Auto) 27 % (24-48) Monocytes (%) (Auto) 8 % (0-9) Eosinophils (%) (Auto) 2 % (0-3) Basophils (%) (Auto) 1 % (0-3) Neutrophils # (Auto) 5.1 x10^3uL (1.8-7.7) Lymphocytes # (Auto) 2.2 x10^3/uL (1.0-4.8) Monocytes # (Auto) 0.7 x10^3/uL (0.0-1.1) Eosinophils # (Auto) 0.2 x10^3/uL (0.0-0.7) Basophils # (Auto) 0.1 x10^3/uL (0.0-0.2) Sodium Level 138 mmol/L (136-145) Potassium Level 2.1 mmol/L (3.5-5.1) Chloride Level 94 mmol/L (98-107) Carbon Dioxide Level 36 mmol/L (21-32) Anion Gap 8 (6-14) Blood Urea Nitrogen 5 mg/dL (7-20) Creatinine 1.2 mg/dL (0.6-1.0) Estimated GFR (Cockcroft-Gault) 49.8 BUN/Creatinine Ratio 4 (6-20) Glucose Level 86 mg/dL (70-99) Calcium Level 9.7 mg/dL (8.5-10.1) Magnesium Level 2.0 mg/dL (1.8-2.4) Total Bilirubin 0.3 mg/dL (0.2-1.0) Aspartate Amino Transf (AST/SGOT) 31 U/L (15-37) Alanine Aminotransferase (ALT/SGPT) 23 U/L (14-59) Alkaline Phosphatase 130 U/L (46-116) Total Protein 6.9 g/dL (6.4-8.2) Albumin 3.0 g/dL (3.4-5.0) Albumin/Globulin Ratio 0.8 (1.0-1.7) Lipase 360 U/L (73-393) Allergies: Coded Allergies: Sulfa (Sulfonamide Antibiotics) (Verified Allergy, Intermediate, hives, ) ciprofloxacin (Verified Allergy, Intermediate, swelling, 01/27/16) ciprofloxacin HCl (Verified Allergy, Intermediate, swelling, 01/27/16) morphine (Verified Allergy, Intermediate, Hives-TOLERATES DILAUDID, ) HIVES DEVELOPED AFTER ADMINISTRATION OF MORPHINE ON 02/06/2014 TOLERATES DILAUDID Haloperidol Lactate (Verified Adverse Reaction, Intermediate, Altered Mental Status, 01/27/16) erythromycin base (Verified Adverse Reaction, Intermediate, "IT CAUSED ME TO BE BED SICK FOR A WEEK", 01/27/16) haloperidol (Verified Adverse Reaction, Intermediate, Altered Mental Status, 01/27/16) quetiapine fumarate (Verified Adverse Reaction, Intermediate, "jolts going throgh my body", 06/08/17) somatropin (Verified Adverse Reaction, Intermediate, Acathasia, 01/27/16) Medications: Current Medications Medications (Trade) Dose Ordered Sig/Anmlo Route PRN Reason Start Time Stop Time Status Last Admin Dose Admin Sodium Chloride 1,000 ml @ 1,000 mls/hr 1X ONCE IV 06/08/17 11:15 06/08/17 12:14 DC 06/08/17 11:21 Hydromorphone HCl (Dilaudid) 0.5 mg PRN Q30MIN PRN IV SEVERE PAIN 06/08/17 11:15 06/08/17 12:33 Potassium Chloride 100 ml @ 100 mls/hr Q1H IV 06/08/17 11:45 06/08/17 13:44 DC 06/08/17 12:46 Sodium Chloride 1,000 ml @ 125 mls/hr Q8H IV 06/08/17 11:23 06/09/17 11:22 06/08/17 12:44 Albuterol/ Ipratropium (Duoneb) 3 ml 1X ONCE NEB 06/08/17 12:00 06/08/17 12:01 DC 06/08/17 12:12 Imaging: Imaging: CT A/P 04/2017 IMPRESSION: No acute abnormality is seen in the abdomen or pelvis. There is no evidence of bowel obstruction. Small hiatal hernia. PE: GEN: NAD HEENT: Atraumatic, PERRL LUNGS: CTAB HEART: RRR ABD: BS+, diffusely tender although mostly in epigastrium, soft EXTREMITY: No edema SKIN: No rashes, no jaundice NEURO/PSYCH: A & O 3, tearful A/P: A/P: Palpitations, SOA N/v, abd pain, irregular bowel habits, weight loss -previous 'scopes/GI workup as above -has lost ~7 lbs since we last saw her GERD, gastroparesis -currently has reflux treated only w/ Tums, has taken PPI in the past but feels had adverse reaction -intolerant to Reglan, allergy to erythromycin -abd surgeries as above Anxiety -- Will review w/ Dr. Hogue. Would be beneficial to retry PPI, maybe FiberCon. ?HIDA No plans to repeat EGD or colonoscopy. PRISCA ONEIL Jun 08, 2017 16:13
[2017-06-08] MEDS ORDERED: BUTORPHANOL 2 MG/ML VIAL. IV PRN (16:15)
[2017-06-08] MEDS ORDERED: ONDANSETRON PF 4 MG/2 ML VIAL. IV PRN (16:15)
--- NOTE | 2017-06-08 16:38 | PDOC2 ---
JUVENAL GODFREY ORTHODONTIST ASSISTANT 06/08/17 1638: CARDIAC CONSULT DATE OF CONSULT Date of Consult DATE: 06/08/17 TIME: 16:25 REASON FOR CONSULT Reason for Consult: Palpitations REFERRING PHYSICIAN Referring Physician: Erin SOURCE Source: Chart review, Patient HISTORY OF PRESENT ILLNESS HISTORY OF PRESENT ILLNESS This is a pleasant 42 yo female admitted for complains of nausea, vomiting and diarrhea which have been persistent for a while. Also complains of dizziness, weakness and palpitations in the last 4 days. Denies any HOLDEN but sometimes feeling SOA at rest. Denies any CP. Reports of hx of palpitations as an adolescent and was even placed on holter. Nothing was found at that time and there has been nothing recent till in the last 4 days. No hx of of known arrhythmia, CAD, VTE. She is significant for weight loss in which due to her GI problems she has not been eating that well. Denies any fever or chills. PAST MEDICAL HISTORY Cardiovascular: No pertinent hx Pulmonary: Asthma, Pneumonia GI: GERD Heme/Onc: Anemia NOS Psych: Anxiety, Depression, Other (PTSD) Musculoskeletal: Other (No pertinent history) Rheumatologic: No pertinent hx Infectious disease: No pertinent hx ENT: No pertinent hx Renal/: No pertinent hx Endocrine: Hypothyroidism Dermatology: No pertinent hx PAST SURGICAL HISTORY Past Surgical History: Appendectomy, Hernia Repair, Tonsillectomy, Hysterectomy FAMILY HISTORY Family History: Hypertension SOCIAL HISTORY Smoke: <1 pack per day Drugs: Marijuana CURRENT MEDICATIONS CURRENT MEDICATIONS Current Medications Medications (Trade) Dose Ordered Sig/Anmol Route PRN Reason Start Time Stop Time Status Last Admin Dose Admin Sodium Chloride 1,000 ml @ 1,000 mls/hr 1X ONCE IV 06/08/17 11:15 06/08/17 12:14 DC 06/08/17 11:21 Hydromorphone HCl (Dilaudid) 0.5 mg PRN Q30MIN PRN IV SEVERE PAIN 06/08/17 11:15 06/08/17 16:14 DC 06/08/17 12:33 Potassium Chloride 100 ml @ 100 mls/hr Q1H IV 06/08/17 11:45 06/08/17 13:44 DC 06/08/17 12:46 Sodium Chloride 1,000 ml @ 125 mls/hr Q8H IV 06/08/17 11:23 06/09/17 11:22 06/08/17 12:44 Albuterol/ Ipratropium (Duoneb) 3 ml 1X ONCE NEB 06/08/17 12:00 06/08/17 12:01 DC 06/08/17 12:12 ALLERGIES ALLERGIES: Coded Allergies: Sulfa (Sulfonamide Antibiotics) (Verified Allergy, Intermediate, hives, ) ciprofloxacin (Verified Allergy, Intermediate, swelling, 01/27/16) ciprofloxacin HCl (Verified Allergy, Intermediate, swelling, 01/27/16) morphine (Verified Allergy, Intermediate, Hives-TOLERATES DILAUDID, ) HIVES DEVELOPED AFTER ADMINISTRATION OF MORPHINE ON 02/06/2014 TOLERATES DILAUDID Haloperidol Lactate (Verified Adverse Reaction, Intermediate, Altered Mental Status, 01/27/16) erythromycin base (Verified Adverse Reaction, Intermediate, "IT CAUSED ME TO BE BED SICK FOR A WEEK", 01/27/16) haloperidol (Verified Adverse Reaction, Intermediate, Altered Mental Status, 01/27/16) quetiapine fumarate (Verified Adverse Reaction, Intermediate, "jolts going throgh my body", 06/08/17) somatropin (Verified Adverse Reaction, Intermediate, Acathasia, 01/27/16) ROS Review of System 14 point ROS evaluated with pertinent positives noted per HPI PHYSICAL EXAM General: Alert, Oriented X3, Cooperative, No acute distress HEENT: Atraumatic, Mucous membr. moist/pink Lungs: Clear to auscultation, Normal air movement Heart: Regular rate (SR ), Normal S1, Normal S2, Other (2/6 systolic murmur to LLS border) Abdomen: Soft Extremities: No cyanosis, Other (trace LE edema) Skin: No breakdown, No significant lesion Neuro: Normal speech, Sensation intact Psych/Mental Status: Mental status NL, Mood NL MUSCULOSKELETAL: Full range of motion without pain, Abnormal active ROM of VITALS VITALS Vital Signs Date Time Temp Pulse Resp B/P (MAP) Pulse Ox O2 Delivery O2 Flow Rate FiO2 06/08/17 14:50 Room Air 06/08/17 12:50 85 114/72 (86) 96 06/08/17 11:30 17 06/08/17 09:49 98.2 98.2 LABS Lab: Laboratory Tests Test 06/08/17 10:10 White Blood Count 8.2 x10^3/uL (4.0-11.0) Red Blood Count 5.23 x10^6/uL (3.50-5.40) Hemoglobin 14.3 g/dL (12.0-15.5) Hematocrit 42.0 % (36.0-47.0) Mean Corpuscular Volume 80 fL (79-100) Mean Corpuscular Hemoglobin 27 pg (25-35) Mean Corpuscular Hemoglobin Concent 34 g/dL (31-37) Red Cell Distribution Width 16.2 % (11.5-14.5) Platelet Count 313 x10^3/uL (140-400) Neutrophils (%) (Auto) 62 % (31-73) Lymphocytes (%) (Auto) 27 % (24-48) Monocytes (%) (Auto) 8 % (0-9) Eosinophils (%) (Auto) 2 % (0-3) Basophils (%) (Auto) 1 % (0-3) Neutrophils # (Auto) 5.1 x10^3uL (1.8-7.7) Lymphocytes # (Auto) 2.2 x10^3/uL (1.0-4.8) Monocytes # (Auto) 0.7 x10^3/uL (0.0-1.1) Eosinophils # (Auto) 0.2 x10^3/uL (0.0-0.7) Basophils # (Auto) 0.1 x10^3/uL (0.0-0.2) Sodium Level 138 mmol/L (136-145) Potassium Level 2.1 mmol/L (3.5-5.1) Chloride Level 94 mmol/L (98-107) Carbon Dioxide Level 36 mmol/L (21-32) Anion Gap 8 (6-14) Blood Urea Nitrogen 5 mg/dL (7-20) Creatinine 1.2 mg/dL (0.6-1.0) Estimated GFR (Cockcroft-Gault) 49.8 BUN/Creatinine Ratio 4 (6-20) Glucose Level 86 mg/dL (70-99) Calcium Level 9.7 mg/dL (8.5-10.1) Magnesium Level 2.0 mg/dL (1.8-2.4) Total Bilirubin 0.3 mg/dL (0.2-1.0) Aspartate Amino Transf (AST/SGOT) 31 U/L (15-37) Alanine Aminotransferase (ALT/SGPT) 23 U/L (14-59) Alkaline Phosphatase 130 U/L (46-116) Total Protein 6.9 g/dL (6.4-8.2) Albumin 3.0 g/dL (3.4-5.0) Albumin/Globulin Ratio 0.8 (1.0-1.7) Lipase 360 U/L (73-393) ECHOCARDIOGRAM ECHOCARDIOGRAM <Conclusion> The left ventricular systolic function is normal. The ejection fraction is estimated at 55-60%. There is normal LV segmental wall motion. Doppler and Color-flow revealed trace mitral regurgitation. Doppler and Color Flow revealed trace tricuspid regurgitation. There is mild pulmonary hypertension. The PA pressure was estimated at 40 mmHg. There is no evidence of significant pericardial effusion. DATE: 04/13/15 1430 STRESS TEST STRESS TEST Conclusion 1. Regadenoson cardioisotope stress test did not show any evidence of ischemia or infarct. 2. Normal left ventricular systolic function with ejection fraction calculated at 89%. 3. Low risk for cardiovascular events. DATE: 04/12/15 1703 ASSESSMENT/PLAN ASSESSMENT/PLAN 1. Palpitations: paroxysmal arrhythmia is possible in relation to lyte/fluid imbalance 2. Hypokalemia: due to persistent N/V/diarrhea, and malnutrition 3. Prolonged QTc: EKG SR. QTc 517 due to severely low K. 4. Hypotension: GI loss 5. Protein malnutrition 6. Hypothyroidism: TSH on goal Recommendations 1. Maintain IVF 2. Follow GI recommendation 3. Continue to replace K. 4. Place on tele monitor 5. Obtain TTE 6. BMP and Mg in am Problems: LELAND MILNER MD 06/09/17 1342: CARDIAC CONSULT ALLERGIES ALLERGIES: Coded Allergies: Sulfa (Sulfonamide Antibiotics) (Verified Allergy, Intermediate, hives, ) ciprofloxacin (Verified Allergy, Intermediate, swelling, 01/27/16) ciprofloxacin HCl (Verified Allergy, Intermediate, swelling, 01/27/16) morphine (Verified Allergy, Intermediate, Hives-TOLERATES DILAUDID, ) HIVES DEVELOPED AFTER ADMINISTRATION OF MORPHINE ON 02/06/2014 TOLERATES DILAUDID Haloperidol Lactate (Verified Adverse Reaction, Intermediate, Altered Mental Status, 01/27/16) erythromycin base (Verified Adverse Reaction, Intermediate, "IT CAUSED ME TO BE BED SICK FOR A WEEK", 01/27/16) haloperidol (Verified Adverse Reaction, Intermediate, Altered Mental Status, 01/27/16) quetiapine fumarate (Verified Adverse Reaction, Intermediate, "jolts going throgh my body", 06/08/17) somatropin (Verified Adverse Reaction, Intermediate, Acathasia, 01/27/16) ASSESSMENT/PLAN ASSESSMENT/PLAN Patient seen and examined. 06/08/17. Agree with LABORER GENERAL's assessment and plan. Sinus tachycardia physiologic secondary to hypovolemia and PVCs probably secondary to hypokalemia. Replace potassium and continue intravenous hydration. Check 2-D echo to assess LV function. Continue workup for nausea and vomiting per IM. Thank you for your consultation Problems: JUVENAL GODFREY APRN Jun 08, 2017 16:38 LELAND MILNER MD Jun 09, 2017 13:42
[2017-06-08] MEDS: PANTOPRAZOLE 40 MG TABLET.DR. PO SCH (17:00)
[2017-06-08] MEDS: POTASSIUM CHLORIDE 20 MEQ TABLET.ER. PO SCH ×2 (17:12→23:41)
--- NOTE | 2017-06-08 18:43 | HP ---
ADMIT DATE: 06/08/2017 CHIEF COMPLAINT: Nausea, vomiting. HISTORY OF PRESENT ILLNESS: The patient is a pleasant 42-year-old female who has multiple comorbidities including some psychiatric issues as well. Basically, she presents with nausea, vomiting. She states she has gastroparesis. Indeed, her potassium was 2.2. She denies any eating disorder. While in the ER, she also complained of palpitations and some vague chest discomfort. She states she has lost 100 pounds over the past 4 years and she has a history of ovarian cancer. I have discussed the case with the ER physician. We are going to admit the patient and consult GI and Hematology/Oncology. PAST MEDICAL HISTORY: Gastroparesis, palpitations, remote history of bipolar disorder (she states she has manic episodes at times), PTSD, hypoglycemia, hiatal hernia abdominal mesh, hysterectomy, endometriosis, GERD, depression, anemia. ALLERGIES: CIPRO, SULFA, MORPHINE, ERYTHROMYCIN, SEROQUEL AND HALDOL. FAMILY HISTORY: Hypertension. SOCIAL HISTORY: She lives with her mom. No drinking, smoking or drugs. MEDICATIONS: Reviewed. REVIEW OF SYSTEMS: GENERAL: No history of weight change, weakness or fevers. She complains of no energy. SKIN: No bruising, hair changes or rashes. EYES: No blurred, double or loss of vision. NOSE AND THROAT: No history of nosebleeds, hoarseness or sore throat. HEART: She complains of palpitations. No chest pain or shortness of breath on exertion. LUNGS: Denies cough, hemoptysis, wheezing or shortness of breath. GASTROINTESTINAL: She complains of nausea, vomiting. She complains of loose stools. GENITOURINARY: No history of frequency, urgency, hesitancy or nocturia. NEUROLOGIC: Denies history of numbness, tingling, tremor or weakness. PSYCHIATRIC: No history of panic, anxiety or depression. ENDOCRINE: No history of heat or cold intolerance, polyuria or polydipsia. EXTREMITIES: Denies muscle weakness, joint pain, pain on walking or stiffness. PHYSICAL EXAMINATION: VITAL SIGNS: Temperature afebrile, pulse 80, respirations 18, blood pressure 159/97. GENERAL: She is alert, cooperative. Her mom is present. HEART: Normal S1, S2. LUNGS: Clear. ABDOMEN: Soft. Decreased bowel sounds, tender. EXTREMITIES: With trace edema. SKIN: Pale. No obvious rashes. ENDOCRINE: No thyromegaly. LYMPHATICS: No cervical nodes. HEMATOPOIETIC: No bruising. NEUROLOGICAL: She is a little weak. LABORATORY DATA: White count 6, hemoglobin 17, platelets 219. Electrolytes are normal. Troponin is 0. Drug screen is positive for cannabinoids. Urinalysis negative. Carotid Dopplers were negative. ASSESSMENT AND PLAN: Hypokalemia and gastroparesis. The patient has been admitted. We will replace potassium, IV fluids. Consult Gastroenterology, consult Cardiology and Hematology/Oncology. Check a TSH, resume home medicines, physical therapy and occupational therapy. CJ DEGROOT DO DR: OFELIA/erika JOB#: [id number] / [id number]
[2017-06-08 18:53] VITALS: BP 126/97
[2017-06-08 19:59] VITALS: BP 96/63
[2017-06-08] MEDS: IPRATRPIUM/ALBUTEROL 0.5/2.5MG 3 ML NEBU. NEB SCH (21:38)
[2017-06-08 23:59] VITALS: BP 82/51
[2017-06-09 03:59] VITALS: BP 83/50
[2017-06-09 04:08] LABS: BASO # 0.1 x10^3/uL (0.0-0.2); BASO % 1 % (0-3); EOS % 6 % (0-3); HEMATOCRIT 34.6 % (36.0-47.0); HEMOGLOBIN 12.1 g/dL (12.0-15.5); LYMPH # 2.6 x10^3/uL (1.0-4.8); LYMPH % 52 % (24-48); MEAN CORPUSCULAR HEMOGLOBIN 29 pg (25-35); MEAN CORPUSCULAR HGB CONC 35 g/dL (31-37); MEAN CORPUSCULAR VOLUME 82 fL (79-100); MONO % 8 % (0-9); NEUT % 33 % (31-73); PLATELET COUNT 213 x10^3/uL (140-400); RED BLOOD COUNT 4.22 x10^6/uL (3.50-5.40); RED CELL DISTRIBUTION WIDTH 15.7 % (11.5-14.5); WHITE BLOOD COUNT 5.1 x10^3/uL (4.0-11.0)
[2017-06-09 04:24] LABS: CALCIUM 8.5 mg/dL (8.5-10.1); CREATININE 0.8 mg/dL (0.6-1.0); GFR 79.4
[2017-06-09 04:40] LABS: POTASSIUM 2.5 mmol/L (3.5-5.1)
[2017-06-09] MEDS: POTASSIUM CHLORIDE 20 MEQ TABLET.ER. PO SCH ×4 (05:09→18:00)
[2017-06-09] MEDS: POTASSIUM CHLORIDE 10MEQ 100 ML IV SCH ×4 (05:10→09:00)
[2017-06-09] MEDS: IV NORMAL SALINE 1000ML BAG 1,000 ML IV SCH ×2 (05:12→21:06)
[2017-06-09 07:00] VITALS: BP 100/69
[2017-06-09] MEDS: IPRATRPIUM/ALBUTEROL 0.5/2.5MG 3 ML NEBU. NEB SCH ×4 (07:19→19:29)
[2017-06-09] MEDS ORDERED: ALBUTEROL SULFATE 2.5 MG/3 ML NEBU. NEB PRN (09:45)
[2017-06-09] MEDS ORDERED: hydrALAZINE 20 MG/ML VIAL. IVP PRN (09:45)
[2017-06-09] MEDS ORDERED: DOCUSATE SODIUM 100 MG CAPSULE. PO PRN (09:45)
[2017-06-09] MEDS ORDERED: ONDANSETRON PF 4 MG/2 ML VIAL. IV PRN (09:45)
[2017-06-09] MEDS ORDERED: traMADol 50 MG TABLET PO PRN (09:45)
[2017-06-09] MEDS ORDERED: ACETAMINOPHEN 325 MG TABLET. PO PRN (09:45)
[2017-06-09] MEDS ORDERED: GABA800T2 PO (10:39)
--- NOTE | 2017-06-09 10:50 | PDOC ---
PROGRESS NOTES Subjective Subjective Nausea and vomiting improved Objective Objective Vital Signs Date Time Temp Pulse Resp B/P (MAP) Pulse Ox O2 Delivery O2 Flow Rate FiO2 06/09/17 07:21 Nasal Cannula 1.5 06/09/17 07:00 96.9 79 18 100/69 (79) 100 96.9 Physical Exam Abdomen: Soft Heart: Regular rate (SR ), Normal S1, Normal S2, Other (2/6 systolic murmur to LLS border) Extremities: No cyanosis, Other (trace LE edema) General: Alert, Oriented X3, Cooperative, No acute distress HEENT: Atraumatic Lungs: Clear to auscultation, Normal air movement MUSCULOSKELETAL: Full range of motion without pain, Abnormal active ROM of Neuro: Normal speech, Sensation intact Psych/Mental Status: Mental status NL, Mood NL Skin: No breakdown, No significant lesion Assessment Assessment 1. Palpitations: Telemetry showed sinus tachycardia with PVCs. Tachycardia physiologic secondary to hypovolemia. Replace potassium and monitor for any arrhythmias. Check 2-D echo to assess LV function - could be done as an outpatient if discharged 2. Hypokalemia: due to persistent N/V/diarrhea, and malnutrition. Replace orally and IV 3. Hypotension: secondary to hypovolemia, mproved since admission 4. Hypothyroidism: Continue levothyroxine Plan Plan of Care Problems Medical Problems: (1) Abdominal pain Status: Acute (2) Gastroparesis Status: Acute (3) Hypokalemia Status: Acute (4) Prolonged Q-T interval on ECG Status: Acute (5) Prolonged QT interval Status: Acute Comment Review of Relevant I have reviewed the following items april (where applicable) has been applied. Labs Laboratory Tests Test 06/09/17 03:35 White Blood Count 5.1 x10^3/uL (4.0-11.0) Red Blood Count 4.22 x10^6/uL (3.50-5.40) Hemoglobin 12.1 g/dL (12.0-15.5) Hematocrit 34.6 % (36.0-47.0) Mean Corpuscular Volume 82 fL (79-100) Mean Corpuscular Hemoglobin 29 pg (25-35) Mean Corpuscular Hemoglobin Concent 35 g/dL (31-37) Red Cell Distribution Width 15.7 % (11.5-14.5) Platelet Count 213 x10^3/uL (140-400) Neutrophils (%) (Auto) 33 % (31-73) Lymphocytes (%) (Auto) 52 % (24-48) Monocytes (%) (Auto) 8 % (0-9) Eosinophils (%) (Auto) 6 % (0-3) Basophils (%) (Auto) 1 % (0-3) Neutrophils # (Auto) 1.7 x10^3uL (1.8-7.7) Lymphocytes # (Auto) 2.6 x10^3/uL (1.0-4.8) Monocytes # (Auto) 0.4 x10^3/uL (0.0-1.1) Eosinophils # (Auto) 0.3 x10^3/uL (0.0-0.7) Basophils # (Auto) 0.1 x10^3/uL (0.0-0.2) Sodium Level 143 mmol/L (136-145) Potassium Level 2.5 mmol/L (3.5-5.1) Chloride Level 106 mmol/L (98-107) Carbon Dioxide Level 33 mmol/L (21-32) Anion Gap 4 (6-14) Blood Urea Nitrogen 3 mg/dL (7-20) Creatinine 0.8 mg/dL (0.6-1.0) Estimated GFR (Cockcroft-Gault) 79.4 Glucose Level 114 mg/dL (70-99) Calcium Level 8.5 mg/dL (8.5-10.1) Magnesium Level 1.9 mg/dL (1.8-2.4) Medications Current Medications Acetaminophen (Tylenol) 650 mg PRN Q6HRS PRN PO FEVER; Start 06/09/17 at 09:45 Albuterol Sulfate (Ventolin Neb Soln) 2.5 mg PRN Q4HRS PRN NEB SHORTNESS OF BREATH; Start 06/09/17 at 09:45 Albuterol/ Ipratropium (Duoneb) 3 ml 1X ONCE NEB Last administered on 12:12; Start 06/08/17 at 12:00; Stop 06/08/17 at 12:01; Status DC Albuterol/ Ipratropium (Duoneb) 3 ml RTQID NEB Last administered on 06/09/17 07 :19; Start 06/08/17 at 21:30 Butorphanol Tartrate (Stadol) 2 mg PRN Q6HRS PRN IV PAIN Last administered on 16:52; Start 06/08/17 at 16:15 Clonazepam (KlonoPIN) 0.5 mg TID PO ; Start 06/09/17 at 11:00 Docusate Sodium (Colace) 100 mg PRN DAILY PRN PO CONSTIPATION; Start 06/09/17 at 09:45 Gabapentin (Neurontin) 800 mg QID PO ; Start 06/09/17 at 13:00 Hydralazine HCl (Apresoline) 10 mg PRN Q4HRS PRN IVP ELEVATED BP, SEE COMMENTS ; Start 06/09/17 at 09:45 Hydromorphone HCl (Dilaudid) 0.5 mg PRN Q30MIN PRN IV SEVERE PAIN Last administered on 06/08/17 12:33; Start 06/08/17 at 11:15; Stop 06/08/17 at 16:14; Status DC Non-Formulary Medication 800 mg [id number] PO ; Start 06/09/17 at 13:00; Status UNV Ondansetron HCl (Zofran) 4 mg PRN Q6HRS PRN IV NAUSEA/VOMITING Last administered on 06/08/17 16:52; Start 06/08/17 at 16:15; Stop 06/09/17 at 09:41; Status DC Ondansetron HCl (Zofran) 4 mg PRN Q6HRS PRN IV NAUSEA/VOMITING; Start 06/09/17 at 09:45 Pantoprazole Sodium (Protonix) 40 mg DAILYAC PO Last administered on 06/08/17 17:00; Start 06/08/17 at 17:00 Potassium Chloride 100 ml @ 100 mls/hr Q1H IV Last administered on 06/08/17 12 :46; Start 06/08/17 at 11:45; Stop 06/08/17 at 13:44; Status DC Potassium Chloride 100 ml @ 100 mls/hr Q1H IV Last administered on 06/09/17 09 :00; Start 06/09/17 at 06:00; Stop 06/09/17 at 09:59; Status DC Potassium Chloride (Klor-Con) 40 meq Q6HRS PO Last administered on 06/09/17 05: 09; Start 06/08/17 at 18:00; Stop 06/09/17 at 18:00 Prednisone (Prednisone) 20 mg DAILY PO ; Start 06/09/17 at 14:00 Sodium Chloride 1,000 ml @ 75 mls/hr [id number] IV ; Start 06/09/17 at 09:45 Sodium Chloride 1,000 ml @ 125 mls/hr Q8H IV Last administered on 06/09/17 05: 12; Start 06/08/17 at 11:23; Stop 06/09/17 at 11:22 Sodium Chloride 1,000 ml @ 1,000 mls/hr 1X ONCE IV Last administered on 11:21; Start 06/08/17 at 11:15; Stop 06/08/17 at 12:14; Status DC Tramadol HCl (Ultram) 50 mg PRN Q6HRS PRN PO PAIN; Start 06/09/17 at 09:45 Vitals/I & O Vital Sign - Last 24 Hours 06/08/17 06/08/17 06/08/17 06/08/17 11:20 11:30 11:50 11:54 Pulse 83 78 72 Resp 22 17 B/P (MAP) 97/70 (79) 109/72 (84) 103/59 (74) Pulse Ox 99 96 98 O2 Delivery Room Air Room Air Room Air Room Air 06/08/17 06/08/17 06/08/17 06/08/17 12:12 12:20 12:33 12:50 Pulse 96 85 B/P (MAP) 115/66 (82) 114/72 (86) Pulse Ox 94 97 96 O2 Delivery Room Air Room Air Room Air Room Air 06/08/17 06/08/17 06/08/17 06/08/17 14:50 15:00 16:52 18:53 Temp 97.7 97.7 97.7 97.7 Pulse 96 96 Resp 18 18 B/P (MAP) 126/97 (107) 126/97 (107) Pulse Ox 99 96 99 O2 Delivery Room Air Room Air Room Air Room Air 06/08/17 06/08/17 06/08/17 06/08/17 19:59 20:26 21:38 23:59 Temp 97.6 97.9 97.6 97.9 Pulse 63 72 Resp 10 16 B/P (MAP) 96/63 (74) 82/51 (61) Pulse Ox 96 100 99 O2 Delivery Room Air Room Air Nasal Cannula Nasal Cannula O2 Flow Rate 1.5 2.0 06/09/17 06/09/17 06/09/17 03:59 07:00 07:21 Temp 97.7 96.9 97.7 96.9 Pulse 59 79 Resp 16 18 B/P (MAP) 83/50 (61) 100/69 (79) Pulse Ox 98 100 O2 Delivery Nasal Cannula Room Air Nasal Cannula O2 Flow Rate 2.0 1.5 LELAND MILNER MD Jun 09, 2017 10:50
[2017-06-09] MEDS ORDERED: SINCALIDE 1.41 MCG in IV NORMAL SALINE 50ML 30 ML IV ONE (11:00)
--- NOTE | 2017-06-09 12:16 | RAD ---
Exam performed: Nuclear medicine hepatobiliary scan. History: Gastroparesis, weight loss, abdominal pain Findings: Following intravenous administration of5.3 mCi of Choletec tagged with Tc, sequential gamma camera images of the right upper quadrant of the abdomen were obtained. There is prompt accumulation of radionuclide in the liver which appears to be unremarkable Prompt accumulation in the central intrahepatic biliary radicals, gallbladder, common bile duct and small bowel is noted. Patient was also infused with 1.4mcg of CCK and gallbladder ejection fraction was calculated which bygazczz23% Impression: Normal nuclear hepatobiliary scan with gallbladder ejection fraction [id number]%.
[2017-06-09] MEDS: clonazePAM 1 MG TABLET PO SCH ×2 (12:36→21:04)
[2017-06-09] MEDS: GABAPENTIN 400 MG CAPSULE. PO SCH ×3 (12:36→21:04)
[2017-06-09] MEDS: PANTOPRAZOLE 40 MG TABLET.DR. PO SCH (12:38)
[2017-06-09] MEDS: predniSONE 20 MG TABLET PO SCH (12:39)
[2017-06-09] MEDS ORDERED: NON FORMULARY ITEM (Gabapentin 800 MG) PO SCH (13:00)
--- NOTE | 2017-06-09 13:03 | PDOC ---
PROGRESS NOTES Chief Complaint Chief Complaint ABD pain with N/V, gastroparesis and 3 abd sx palpitations with PVC h/o bipolar disorder hypokalemia anxiety PTSD h/o hiatal hernia with abd mesh, hysterectomy, ovary benign tumor removal GERD chronic anemia moderate asthma weight loss with low po intake plan; pt refuses to see pulm here, agree to fu as outpt, add duoneb, albuterol prn, low dose prednisone, on NC now pain control HIDA scan as per gi today, normal protonix daily fu with sx onco consult, not necessary for now, can resume on Sunday replet K with both iv and po on tele KUB. abd ct 04/2017 neg. resume clonipin, lower dose, resume gabapentin. ivf lower to 75cc/h, clear liquid diet for now, possible advance to full liquid today History of Present Illness History of Present Illness N/V better, abd pain better 01/15 but c/o sob, on NC now asked many questions about why low K, why abd pain , very anxious Vitals Vitals Vital Signs Date Time Temp Pulse Resp B/P (MAP) Pulse Ox O2 Delivery O2 Flow Rate FiO2 06/09/17 08:00 Room Air 06/09/17 07:21 1.5 06/09/17 07:00 96.9 79 18 100/69 (79) 100 96.9 Physical Exam General: Alert, Oriented X3, Cooperative, No acute distress Heart: Regular rate (SR ), Normal S1, Normal S2, Other (2/6 systolic murmur to LLS border) Lungs: Wheezing (bl mild), Other Abdomen: Soft Extremities: No cyanosis, Other (trace LE edema) Skin: No breakdown, No significant lesion Labs LABS Laboratory Tests Test 06/09/17 03:35 White Blood Count 5.1 x10^3/uL (4.0-11.0) Red Blood Count 4.22 x10^6/uL (3.50-5.40) Hemoglobin 12.1 g/dL (12.0-15.5) Hematocrit 34.6 % (36.0-47.0) Mean Corpuscular Volume 82 fL (79-100) Mean Corpuscular Hemoglobin 29 pg (25-35) Mean Corpuscular Hemoglobin Concent 35 g/dL (31-37) Red Cell Distribution Width 15.7 % (11.5-14.5) Platelet Count 213 x10^3/uL (140-400) Neutrophils (%) (Auto) 33 % (31-73) Lymphocytes (%) (Auto) 52 % (24-48) Monocytes (%) (Auto) 8 % (0-9) Eosinophils (%) (Auto) 6 % (0-3) Basophils (%) (Auto) 1 % (0-3) Neutrophils # (Auto) 1.7 x10^3uL (1.8-7.7) Lymphocytes # (Auto) 2.6 x10^3/uL (1.0-4.8) Monocytes # (Auto) 0.4 x10^3/uL (0.0-1.1) Eosinophils # (Auto) 0.3 x10^3/uL (0.0-0.7) Basophils # (Auto) 0.1 x10^3/uL (0.0-0.2) Sodium Level 143 mmol/L (136-145) Potassium Level 2.5 mmol/L (3.5-5.1) Chloride Level 106 mmol/L (98-107) Carbon Dioxide Level 33 mmol/L (21-32) Anion Gap 4 (6-14) Blood Urea Nitrogen 3 mg/dL (7-20) Creatinine 0.8 mg/dL (0.6-1.0) Estimated GFR (Cockcroft-Gault) 79.4 Glucose Level 114 mg/dL (70-99) Calcium Level 8.5 mg/dL (8.5-10.1) Magnesium Level 1.9 mg/dL (1.8-2.4) Assessment and Plan Assessmemt and Plan Problems Medical Problems: (1) Abdominal pain Status: Acute (2) Gastroparesis Status: Acute (3) Hypokalemia Status: Acute (4) Prolonged Q-T interval on ECG Status: Acute (5) Prolonged QT interval Status: Acute Problems: Comment Review of Relevant I have reviewed the following items april (where applicable) has been applied. Labs Laboratory Tests Test 06/08/17 10:10 06/09/17 03:35 White Blood Count 8.2 x10^3/uL (4.0-11.0) 5.1 x10^3/uL (4.0-11.0) Red Blood Count 5.23 x10^6/uL (3.50-5.40) 4.22 x10^6/uL (3.50-5.40) Hemoglobin 14.3 g/dL (12.0-15.5) 12.1 g/dL (12.0-15.5) Hematocrit 42.0 % (36.0-47.0) 34.6 % (36.0-47.0) Mean Corpuscular Volume 80 fL (79-100) 82 fL (79-100) Mean Corpuscular Hemoglobin 27 pg (25-35) 29 pg (25-35) Mean Corpuscular Hemoglobin Concent 34 g/dL (31-37) 35 g/dL (31-37) Red Cell Distribution Width 16.2 % (11.5-14.5) 15.7 % (11.5-14.5) Platelet Count 313 x10^3/uL (140-400) 213 x10^3/uL (140-400) Neutrophils (%) (Auto) 62 % (31-73) 33 % (31-73) Lymphocytes (%) (Auto) 27 % (24-48) 52 % (24-48) Monocytes (%) (Auto) 8 % (0-9) 8 % (0-9) Eosinophils (%) (Auto) 2 % (0-3) 6 % (0-3) Basophils (%) (Auto) 1 % (0-3) 1 % (0-3) Neutrophils # (Auto) 5.1 x10^3uL (1.8-7.7) 1.7 x10^3uL (1.8-7.7) Lymphocytes # (Auto) 2.2 x10^3/uL (1.0-4.8) 2.6 x10^3/uL (1.0-4.8) Monocytes # (Auto) 0.7 x10^3/uL (0.0-1.1) 0.4 x10^3/uL (0.0-1.1) Eosinophils # (Auto) 0.2 x10^3/uL (0.0-0.7) 0.3 x10^3/uL (0.0-0.7) Basophils # (Auto) 0.1 x10^3/uL (0.0-0.2) 0.1 x10^3/uL (0.0-0.2) Sodium Level 138 mmol/L (136-145) 143 mmol/L (136-145) Potassium Level 2.1 mmol/L (3.5-5.1) 2.5 mmol/L (3.5-5.1) Chloride Level 94 mmol/L (98-107) 106 mmol/L (98-107) Carbon Dioxide Level 36 mmol/L (21-32) 33 mmol/L (21-32) Anion Gap 8 (6-14) 4 (6-14) Blood Urea Nitrogen 5 mg/dL (7-20) 3 mg/dL (7-20) Creatinine 1.2 mg/dL (0.6-1.0) 0.8 mg/dL (0.6-1.0) Estimated GFR (Cockcroft-Gault) 49.8 79.4 BUN/Creatinine Ratio 4 (6-20) Glucose Level 86 mg/dL (70-99) 114 mg/dL (70-99) Calcium Level 9.7 mg/dL (8.5-10.1) 8.5 mg/dL (8.5-10.1) Magnesium Level 2.0 mg/dL (1.8-2.4) 1.9 mg/dL (1.8-2.4) Total Bilirubin 0.3 mg/dL (0.2-1.0) Aspartate Amino Transf (AST/SGOT) 31 U/L (15-37) Alanine Aminotransferase (ALT/SGPT) 23 U/L (14-59) Alkaline Phosphatase 130 U/L (46-116) Total Protein 6.9 g/dL (6.4-8.2) Albumin 3.0 g/dL (3.4-5.0) Albumin/Globulin Ratio 0.8 (1.0-1.7) Lipase 360 U/L (73-393) Thyroid Stimulating Hormone (TSH) 2.258 uIU/mL (0.358-3.74) Laboratory Tests Test 06/09/17 03:35 White Blood Count 5.1 x10^3/uL (4.0-11.0) Red Blood Count 4.22 x10^6/uL (3.50-5.40) Hemoglobin 12.1 g/dL (12.0-15.5) Hematocrit 34.6 % (36.0-47.0) Mean Corpuscular Volume 82 fL (79-100) Mean Corpuscular Hemoglobin 29 pg (25-35) Mean Corpuscular Hemoglobin Concent 35 g/dL (31-37) Red Cell Distribution Width 15.7 % (11.5-14.5) Platelet Count 213 x10^3/uL (140-400) Neutrophils (%) (Auto) 33 % (31-73) Lymphocytes (%) (Auto) 52 % (24-48) Monocytes (%) (Auto) 8 % (0-9) Eosinophils (%) (Auto) 6 % (0-3) Basophils (%) (Auto) 1 % (0-3) Neutrophils # (Auto) 1.7 x10^3uL (1.8-7.7) Lymphocytes # (Auto) 2.6 x10^3/uL (1.0-4.8) Monocytes # (Auto) 0.4 x10^3/uL (0.0-1.1) Eosinophils # (Auto) 0.3 x10^3/uL (0.0-0.7) Basophils # (Auto) 0.1 x10^3/uL (0.0-0.2) Sodium Level 143 mmol/L (136-145) Potassium Level 2.5 mmol/L (3.5-5.1) Chloride Level 106 mmol/L (98-107) Carbon Dioxide Level 33 mmol/L (21-32) Anion Gap 4 (6-14) Blood Urea Nitrogen 3 mg/dL (7-20) Creatinine 0.8 mg/dL (0.6-1.0) Estimated GFR (Cockcroft-Gault) 79.4 Glucose Level 114 mg/dL (70-99) Calcium Level 8.5 mg/dL (8.5-10.1) Magnesium Level 1.9 mg/dL (1.8-2.4) Medications Current Medications Sodium Chloride 1,000 ml @ 1,000 mls/hr 1X ONCE IV Last administered on t 11:21; Start 06/08/17 at 11:15; Stop 06/08/17 at 12:14; Status DC Hydromorphone HCl (Dilaudid) 0.5 mg PRN Q30MIN PRN IV SEVERE PAIN Last administered on 06/08/17 12:33; Start 06/08/17 at 11:15; Stop 06/08/17 at 16:14; Status DC Potassium Chloride 100 ml @ 100 mls/hr Q1H IV Last administered on 06/08/17 12 :46; Start 06/08/17 at 11:45; Stop 06/08/17 at 13:44; Status DC Sodium Chloride 1,000 ml @ 125 mls/hr Q8H IV Last administered on 06/09/17 05: 12; Start 06/08/17 at 11:23; Stop 06/09/17 at 11:22; Status DC Albuterol/ Ipratropium (Duoneb) 3 ml 1X ONCE NEB Last administered on 12:12; Start 06/08/17 at 12:00; Stop 06/08/17 at 12:01; Status DC Ondansetron HCl (Zofran) 4 mg PRN Q6HRS PRN IV NAUSEA/VOMITING Last administered on 06/08/17 16:52; Start 06/08/17 at 16:15; Stop 06/09/17 at 09:41; Status DC Butorphanol Tartrate (Stadol) 2 mg PRN Q6HRS PRN IV PAIN Last administered on 16:52; Start 06/08/17 at 16:15 Pantoprazole Sodium (Protonix) 40 mg DAILYAC PO Last administered on 06/09/17 12:38; Start 06/08/17 at 17:00 Potassium Chloride (Klor-Con) 40 meq Q6HRS PO Last administered on 06/09/17 12: 36; Start 06/08/17 at 18:00; Stop 06/09/17 at 18:00 Albuterol/ Ipratropium (Duoneb) 3 ml RTQID NEB Last administered on 06/09/17 07 :19; Start 06/08/17 at 21:30 Potassium Chloride 100 ml @ 100 mls/hr Q1H IV Last administered on 06/09/17 09 :00; Start 06/09/17 at 06:00; Stop 06/09/17 at 09:59; Status DC Albuterol Sulfate (Ventolin Neb Soln) 2.5 mg PRN Q4HRS PRN NEB SHORTNESS OF BREATH; Start 06/09/17 at 09:45 Prednisone (Prednisone) 20 mg DAILY PO Last administered on 06/09/17 12:39; Start 06/09/17 at 14:00 Acetaminophen (Tylenol) 650 mg PRN Q6HRS PRN PO FEVER; Start 06/09/17 at 09:45 Ondansetron HCl (Zofran) 4 mg PRN Q6HRS PRN IV NAUSEA/VOMITING; Start 06/09/17 at 09:45 Tramadol HCl (Ultram) 50 mg PRN Q6HRS PRN PO PAIN; Start 06/09/17 at 09:45 Hydralazine HCl (Apresoline) 10 mg PRN Q4HRS PRN IVP ELEVATED BP, SEE COMMENTS ; Start 06/09/17 at 09:45 Docusate Sodium (Colace) 100 mg PRN DAILY PRN PO CONSTIPATION; Start 06/09/17 at 09:45 Sodium Chloride 1,000 ml @ 75 mls/hr [id number] IV ; Start 06/09/17 at 09:45 Clonazepam (KlonoPIN) 0.5 mg TID PO Last administered on 06/09/17 12:36; Start 06/09/17 at 11:00 Non-Formulary Medication 800 mg [id number] PO ; Start 06/09/17 at 13:00; Status UNV Gabapentin (Neurontin) 800 mg QID PO Last administered on 06/09/17 12:36; Start 06/09/17 at 13:00 Sincalide 1.41 mcg/Sodium Chloride 30 ml @ 120 mls/hr 1X ONCE IV Last administered on 06/09/17 11:00; Start 06/09/17 at 11:00; Stop 06/09/17 at 11:14; Status DC Active Scripts Active Zofran (Ondansetron Hcl) 4 Mg Tablet 1 Tab PO Q6HRS Reported Gabapentin 800 Mg Tablet 800 Mg PO TID Gabapentin 800 Mg Tablet 800 Mg PO [id number] Potassium Chloride 20 Meq Tab.er.prt 20 Meq PO DAILY Klonopin (Clonazepam) 1 Mg Tablet 1 Tab PO TID Ventolin Hfa Inhaler (Albuterol Sulfate) 18 Gm Hfa.aer.ad 18 Gm IH PRN Q4HRS Vitals/I & O Vital Sign - Last 24 Hours 06/08/17 06/08/17 06/08/17 06/08/17 14:50 15:00 16:52 18:53 Temp 97.7 97.7 97.7 97.7 Pulse 96 96 Resp 18 18 B/P (MAP) 126/97 (107) 126/97 (107) Pulse Ox 99 96 99 O2 Delivery Room Air Room Air Room Air Room Air 06/08/17 06/08/17 06/08/17 06/08/17 19:59 20:26 21:38 23:59 Temp 97.6 97.9 97.6 97.9 Pulse 63 72 Resp 10 16 B/P (MAP) 96/63 (74) 82/51 (61) Pulse Ox 96 100 99 O2 Delivery Room Air Room Air Nasal Cannula Nasal Cannula O2 Flow Rate 1.5 2.0 06/09/17 06/09/17 06/09/17 06/09/17 03:59 07:00 07:21 08:00 Temp 97.7 96.9 97.7 96.9 Pulse 59 79 Resp 16 18 B/P (MAP) 83/50 (61) 100/69 (79) Pulse Ox 98 100 O2 Delivery Nasal Cannula Room Air Nasal Cannula Room Air O2 Flow Rate 2.0 1.5 KEVIN CEDENO MD Jun 09, 2017 13:03
[2017-06-09 13:23] VITALS: BP 95/57
[2017-06-09 15:00] VITALS: BP 110/67
[2017-06-09 19:00] VITALS: BP 93/60
[2017-06-09 23:00] VITALS: BP 94/60
[2017-06-10 03:00] VITALS: BP 96/66
[2017-06-10] MEDS: IV NORMAL SALINE 1000ML BAG 1,000 ML IV SCH (04:25)
[2017-06-10 04:52] LABS: BASO % 1 % (0-3); EOS % 1 % (0-3); HEMATOCRIT 33.8 % (36.0-47.0); HEMOGLOBIN 11.6 g/dL (12.0-15.5); LYMPH # 1.9 x10^3/uL (1.0-4.8); LYMPH % 39 % (24-48); MEAN CORPUSCULAR HEMOGLOBIN 28 pg (25-35); MEAN CORPUSCULAR HGB CONC 34 g/dL (31-37); MEAN CORPUSCULAR VOLUME 82 fL (79-100); MONO % 7 % (0-9); NEUT % 53 % (31-73); PLATELET COUNT 226 x10^3/uL (140-400); RED BLOOD COUNT 4.14 x10^6/uL (3.50-5.40); RED CELL DISTRIBUTION WIDTH 16.3 % (11.5-14.5)
[2017-06-10 05:06] LABS: CALCIUM 9.4 mg/dL (8.5-10.1); CREATININE 0.6 mg/dL (0.6-1.0); GFR 110.7; POTASSIUM 4.3 mmol/L (3.5-5.1)
[2017-06-10] MEDS: PANTOPRAZOLE 40 MG TABLET.DR. PO SCH (06:18)
[2017-06-10 07:00] VITALS: BP 110/66
[2017-06-10] MEDS: clonazePAM 1 MG TABLET PO SCH ×2 (07:59→14:10)
[2017-06-10] MEDS: predniSONE 20 MG TABLET PO SCH (07:59)
[2017-06-10] MEDS: POTASSIUM CHLORIDE 20 MEQ TABLET.ER. PO SCH (07:59)
[2017-06-10] MEDS: GABAPENTIN 400 MG CAPSULE. PO SCH ×3 (07:59→16:46)
[2017-06-10] MEDS: IPRATRPIUM/ALBUTEROL 0.5/2.5MG 3 ML NEBU. NEB SCH ×3 (08:03→15:31)
--- NOTE | 2017-06-10 10:10 | RAD ---
Examination: Single frontal view the abdomen History: History of gastroparesis, abdominal pain Comparison: 04/04/2016 Findings: The bowel gas pattern appears unremarkable. Feces and gas noted in the colon. Surgical clips project in the mid and lower abdomen. Impression: Unremarkable bowel gas pattern.
[2017-06-10 15:00] VITALS: BP 102/68
--- NOTE | 2017-06-10 15:29 | CARD ---
APPROVED REPORT EXAM: Two-dimensional and M-mode echocardiogram with Doppler and color Doppler. Other Information Quality : GoodHR: 82bpm Rhythm : NSR INDICATION Palpitations 2D DIMENSIONS RVDd2.8 (2.9-3.5cm)Left Atrium(2D)3.6 (1.6-4.0cm) IVSd0.8 (0.7-1.1cm)Aortic Root(2D)2.9 (2.0-3.7cm) LVDd3.7 (3.9-5.9cm)LVOT Diameter1.0 (1.8-2.4cm) PWd0.7 (0.7-1.1cm)LVDs2.6 (2.5-4.0cm) FS (%) 29.2 %SV33.6 ml LVEF(%)56.8 (>50%) Aortic Valve AoV Peak Min.132.8cm/sAoV VTI28.0cm AO Peak GR.7.1mmHgLVOT Peak Min.98.0cm/s AO Mean GR.4mmHgAVA (VMAX)0.61cm2 Mitral Valve MV E Evqronkr543.1cm/sMV E Peak Gr.6mmHg MV DECEL [id number] A Zqykgtkc894.3cm/s MV E Mean Gr.3mmHgE/A Ratio1.2 MV A [id number] Pulmonary Valve PV Peak Rprqrrgq727.0cm/s Tricuspid Valve TR P. Grgfuqdd644zv/sTR Peak Gr.25mmHg Pulmonary Vein S1 Gfhrogcc96.6cm/sD2 Lmtxjcmh19.5cm/s PVa [id number] LEFT VENTRICLE The left ventricle is normal size. There is normal left ventricular wall thickness. The left ventricu lar systolic function is normal. The Ejection Fraction is 55-60%. There is normal LV segmental wall m otion. The left ventricular diastolic function and filling is normal for age. RIGHT VENTRICLE The right ventricle is normal size. There is normal right ventricular wall thickness. The right ventr icular systolic function is normal. ATRIA The left atrium size is normal. The right atrium size is normal. The interatrial septum is intact wit h no evidence for an atrial septal defect or patent foramen ovale as noted on 2-D or Doppler imaging. AORTIC VALVE The aortic valve is normal in structure and function. The aortic valve is trileaflet. Doppler and Col or Flow revealed no significant aortic regurgitation. There is no significant aortic valvular stenosi s. MITRAL VALVE The mitral valve is normal in structure and function. There is no evidence of mitral valve prolapse. There is no mitral valve stenosis. Doppler and Color Flow revealed no mitral valve regurgitation note d. TRICUSPID VALVE Doppler and Color Flow revealed trace tricuspid regurgitation. The pulmonary artery systolic pressure is estimated at 28 mmHg. There is no pulmonary hypertension. PULMONIC VALVE The pulmonic valve is not well visualized but appears to open adequately. Doppler and Color Flow reve aled trace pulmonic valvular regurgitation. There is no pulmonic valvular stenosis by spectral Dopple r. GREAT VESSELS The aortic root is normal in size. The ascending aorta is normal in size. The pulmonary artery is nor mal. The IVC is normal in size and collapses <50% with inspiration. PERICARDIAL EFFUSION There is no evidence of significant pericardial effusion. Critical Notification Critical Value: No <Conclusion> The left ventricular systolic function is normal. The Ejection Fraction is 55-60%. There is normal LV segmental wall motion. Doppler and Color Flow revealed trace tricuspid regurgitation. The pulmonary artery systolic pressure is estimated at 28 mmHg. There is no evidence of significant pericardial effusion.
--- NOTE | 2017-06-10 17:31 | PDOC3 ---
Discharge Summary [facility] Date of Admission: Jun 08, 2017 Discharge Date: Jun 10, 2017 Admitting Diagnosis ABD pain with N/V, gastroparesis and 3 abd sx palpitations with PVC h/o bipolar disorder hypokalemia with N/V anxiety PTSD h/o hiatal hernia with abd mesh, hysterectomy, ovary benign tumor removal GERD chronic anemia moderate asthma weight loss with low po intake pl Problems: Final Diagnosis CONSULTS gi Brief Hospital Course Ms. Gu is a 42 old F, anxiety, moderate asthma wo good meds, moderate gastroparesis, h/o 3 abd sx, came here for N/V, was found hypokalemia. cont having abd pain. KUB neg. HIDA neg . pt has chronic abd pain, worse sometimes. 04/[address] neg. pt improved with npo , educated to eat small amount of food each time, K normal now with repletion. dc with ventolin prn, pt agrees to talk to pcp for a pulm to fu. lortab 5/325 20pills. dc time 35min General: Alert, Oriented X3, Cooperative, No acute distress Heart: Regular rate (SR ), Normal S1, Normal S2, Other (2/6 systolic murmur to LLS border) Lungs: Wheezing (bl mild), Other Abdomen: Soft Extremities: No cyanosis, Other (trace LE edema) Skin: No breakdown, No significant lesion Patient History: Cancer confirmed (situation) Family history: Asthma Family history: Diabetes mellitus (situation) Malignant hyperthermia Problems: Disposition home CONDITION AT DISCHARGE: Improved Diet gi soft Scheduled Albuterol Sulfate (Ventolin Hfa Inhaler), 18 GM IH PRN Q4HRS, (Reported) Clonazepam (Klonopin), 1 TAB PO TID, (Reported) Gabapentin (Gabapentin), 800 MG PO [id number], (Reported) Ondansetron Hcl (Zofran), 1 TAB PO Q6HRS Potassium Chloride (Potassium Chloride), 20 MEQ PO DAILY, (Reported) Discontinued Medications Gabapentin (Gabapentin), 800 MG PO TID, (Reported) Melatonin (Melatonin), 5 MG PO QHS, (Reported) Omeprazole (Omeprazole), 20 MG PO DAILY, (Reported) Follow Up pcp and gi in 2 weeks KEVIN CEDENO MD Jun 10, 2017 17:31
== END 2017-06-10 17:20 | disposition home or self-care (01) ==
LOC: ER 09:38 → 5 SOUTH 11:48
PROVIDERS: ADMIT Internal Medicine; ATTEND Internal Medicine
DX: E87.6 Hypokalemia (principal); K31.84 Gastroparesis; F31.9 Bipolar disorder, unspecified; F43.10 Post-traumatic stress disorder, unspecified; K21.9 Gastro-esophageal reflux disease without esophagitis; D64.9 Anemia, unspecified; J45.909 Unspecified asthma, uncomplicated; Z90.710 Acquired absence of both cervix and uterus; Z85.43 Personal history of malignant neoplasm of ovary; F17.210 Nicotine dependence, cigarettes, uncomplicated; Z83.3 Family history of diabetes mellitus; Z80.0 Family history of malignant neoplasm of digestive organs; Z82.49 Family history of ischemic heart disease and other diseases of the circulatory system; E03.9 Hypothyroidism, unspecified; E46 Unspecified protein-calorie malnutrition
CPT/HCPCS: 36415; 74000; 78226; 80048; 80053; 83690; 83735; 84443; 85025; 93005; 93306; 94250; 94640; 96361; 96365; 96366; 96367; 96375; 96376; 99285; A9537; G0378; J1170; J2405; J2805; J3480; J7030; J7512; J7613; J7620; 96374; G0379

== ENCOUNTER 2017-07-04 16:52 | Inpatient (IN) | payer OTHER, MEDICAID ==
[~2017-07-04] VITALS: Ht 165.1 cm; Wt 68.0 kg
[2017-07-04 17:16] LABS: BILIRUBIN,URINE NEGATIVE (NEG); GLUCOSE,URINE NEGATIVE (NEG); NITRITE,URINE NEGATIVE (NEG); PROTEIN,URINE NEGATIVE (NEG-TRACE); UROBILINOGEN,URINE 0.2 mg/dL (0.2 mg/dL)
[2017-07-04 17:25] LABS: BACTERIA,URINE 0 /HPF (0-FEW); SQUAMOUS EPITHELIAL CELL,UR FEW /LPF
[2017-07-04 17:29] LABS: BASO # 0.1 x10^3/uL (0.0-0.2); BASO % 1 % (0-3); EOS % 7 % (0-3); HEMATOCRIT 44.2 % (36.0-47.0); HEMOGLOBIN 14.9 g/dL (12.0-15.5); LYMPH # 2.9 x10^3/uL (1.0-4.8); LYMPH % 46 % (24-48); MEAN CORPUSCULAR HEMOGLOBIN 28 pg (25-35); MEAN CORPUSCULAR HGB CONC 34 g/dL (31-37); MEAN CORPUSCULAR VOLUME 84 fL (79-100); MONO % 9 % (0-9); NEUT % 37 % (31-73); PLATELET COUNT 294 x10^3/uL (140-400); RED BLOOD COUNT 5.29 x10^6/uL (3.50-5.40); RED CELL DISTRIBUTION WIDTH 15.5 % (11.5-14.5); WHITE BLOOD COUNT 6.3 x10^3/uL (4.0-11.0)
[2017-07-04] MEDS ORDERED: DICYCLOMINE 20 MG/2 ML AMPUL. IM ONE (17:45)
[2017-07-04] MEDS ORDERED: IV NORMAL SALINE 1000ML BAG 1,000 ML IV ONE (17:45)
[2017-07-04 17:51] LABS: ALBUMIN 3.2 g/dL (3.4-5.0); ALBUMIN/GLOBULIN RATIO 0.8 (1.0-1.7); CALCIUM 9.9 mg/dL (8.5-10.1); CREATININE 1.2 mg/dL (0.6-1.0); GFR 49.8; TOTAL BILIRUBIN 0.3 mg/dL (0.2-1.0); TOTAL PROTEIN 7.3 g/dL (6.4-8.2)
--- NOTE | 2017-07-04 17:57 | PHYS DOC ---
Past Medical History Past Medical History: Asthma, Cancer, GERD, Other Additional Past Medical Histor: CHRONIC N/V,GASTROPARESIS,OVARIAN CA,IBS, hypokalemia,splenomegaly. Past Surgical History: Appendectomy, Hysterectomy, Oophorectomy, Other Additional Past Surgical Histo: PELVIC MESH,HERNIA,L OVARY & FALLOPIAN TUBE REMOVED Alcohol Use: None Drug Use: Marijuana Adult General Chief Complaint Chief Complaint: ABDOMINAL PAIN HPI HPI Patient is a 42 year old female with history of chronic abdominal pain, chronic intermittent nausea vomiting, gastroparesis, appendectomy, removal of tumor, who oophorectomy, abdominal wall hernia repair with mesh placement presents with intermittent nausea vomiting for the past 24 hours with increased pain over patient's hernia site. No fevers, chills, sweats. Denies dizziness, lightheadedness. Reports passing flatus. was admitted to the ED with similar symptoms 3 weeks ago and had brief 2 day hospital stay. Patient has recently been referred to the medical clinic for evaluation of chronic abdominal pain, but states she was then able to keep appointment due to inability to pay for temporary housing. She denies any acute symptoms or complaints.Patient's PCP is Dr. Angel Anderson. ] Review of Systems Review of Systems ROS as per HPI. Current Medications Current Medications Current Medications Medications (Trade) Dose Ordered Sig/Anmol Start Time Stop Time Status Last Admin Dose Admin Dicyclomine HCl (Bentyl) 20 mg 1X ONCE 07/04/17 17:45 07/04/17 17:46 DC 07/04/17 17:53 20 MG Ondansetron HCl (Zofran) 8 mg 1X ONCE 07/04/17 18:00 07/04/17 18:01 DC 07/04/17 18:20 8 MG Potassium Chloride/Dextrose/ Sod Cl 500 ml @ 100 mls/hr 1X ONCE 07/04/17 18:30 07/04/17 23:29 07/04/17 18:32 100 MLS/HR Potassium Chloride (KCl Oral Soln) 40 meq 1X ONCE 07/04/17 18:15 07/04/17 18:16 DC 07/04/17 18:20 40 MEQ Sodium Chloride 1,000 ml @ 1,000 mls/hr 1X ONCE 07/04/17 17:45 07/04/17 18:44 DC 07/04/17 17:46 1,000 MLS/HR Allergies Allergies Allergies Coded Allergies Type Severity Reaction Last Updated Verified Sulfa (Sulfonamide Antibiotics) Allergy Intermediate hives 01/27/16 Yes ciprofloxacin Allergy Intermediate swelling 01/27/16 Yes ciprofloxacin HCl Allergy Intermediate swelling 01/27/16 Yes morphine Allergy Intermediate Hives-TOLERATES DILAUDID 01/27/16 Yes Haloperidol Lactate Adverse Reaction Intermediate Altered Mental Status Yes erythromycin base Adverse Reaction Intermediate "IT CAUSED ME TO BE BED SICK FOR A WEEK" 01/27/16 Yes haloperidol Adverse Reaction Intermediate Altered Mental Status 01/27/16 Yes quetiapine fumarate Adverse Reaction Intermediate "jolts going throgh my body "06/08/17 Yes somatropin Adverse Reaction Intermediate Acathasia 01/27/16 Yes Physical Exam Physical Exam Constitutional: Well developed, well nourished, no acute distress, non-toxic appearance. [] HENT: Normocephalic, atraumatic, bilateral external ears normal, oropharynx moist, no oral exudates, nose normal. [] Eyes: PERRLA, EOMI, conjunctiva normal, no discharge. [] Neck: Normal range of motion, no tenderness, supple, no stridor. [] Cardiovascular:Heart rate regular rhythm, no murmur [] Lungs & Thorax: Bilateral breath sounds clear to auscultation [] Abdomen: Bowel sounds normal, soft, diffuse lower abdominal pain, tenderness no masses, no pulsatile masses. [] Skin: Warm, dry, no erythema, no rash. [] Back: No tenderness, no CVA tenderness. [] Extremities: No tenderness, no cyanosis, no clubbing, ROM intact, no edema. [] Neurologic: Alert and oriented X 3, normal motor function, normal sensory function, no focal deficits noted. [] Psychologic: Affect normal, judgement normal, mood normal. [] Current Patient Data Vital Signs Vital Signs Date Time Temp Pulse Resp B/P (MAP) Pulse Ox O2 Delivery O2 Flow Rate FiO2 07/04/17 18:43 74 18 100/67 (78) 99 Room Air 07/04/17 17:12 97.4 97.4 Lab Values Laboratory Tests Test 07/04/17 17:08 07/04/17 17:15 Urine Collection Type Unknown Urine Color Yellow Urine Clarity Cloudy Urine pH 8.0 Urine Specific [place] 1.020 Urine Protein Negative mg/dL (NEG-TRACE) Urine Glucose (UA) Negative mg/dL (NEG) Urine Ketones (Stick) Negative mg/dL (NEG) Urine Blood Negative (NEG) Urine Nitrite Negative (NEG) Urine Bilirubin Negative (NEG) Urine Urobilinogen Dipstick 0.2 mg/dL (0.2 mg/dL) Urine Leukocyte Esterase Negative (NEG) Urine RBC 1-2 /HPF (0-2) Urine WBC 1-4 /HPF (0-4) Urine Squamous Epithelial Cells Few /LPF Urine Bacteria 0 /HPF (0-FEW) Urine Hyaline Casts Few /HPF Urine Mucus Slight /LPF Urine Opiates Screen Neg (NEG) Urine Methadone Screen Neg (NEG) Urine Barbiturates Neg (NEG) Urine Phencyclidine Screen Neg (NEG) Urine Amphetamine/Methamphetamine Neg (NEG) Urine Benzodiazepines Screen Neg (NEG) Urine Cocaine Screen Neg (NEG) Urine Cannabinoids Screen Pos (NEG) Urine Ethyl Alcohol Neg (NEG) White Blood Count 6.3 x10^3/uL (4.0-11.0) Red Blood Count 5.29 x10^6/uL (3.50-5.40) Hemoglobin 14.9 g/dL (12.0-15.5) Hematocrit 44.2 % (36.0-47.0) Mean Corpuscular Volume 84 fL (79-100) Mean Corpuscular Hemoglobin 28 pg (25-35) Mean Corpuscular Hemoglobin Concent 34 g/dL (31-37) Red Cell Distribution Width 15.5 % (11.5-14.5) H Platelet Count 294 x10^3/uL (140-400) Neutrophils (%) (Auto) 37 % (31-73) Lymphocytes (%) (Auto) 46 % (24-48) Monocytes (%) (Auto) 9 % (0-9) Eosinophils (%) (Auto) 7 % (0-3) H Basophils (%) (Auto) 1 % (0-3) Neutrophils # (Auto) 2.3 x10^3uL (1.8-7.7) Lymphocytes # (Auto) 2.9 x10^3/uL (1.0-4.8) Monocytes # (Auto) 0.6 x10^3/uL (0.0-1.1) Eosinophils # (Auto) 0.4 x10^3/uL (0.0-0.7) Basophils # (Auto) 0.1 x10^3/uL (0.0-0.2) Sodium Level 139 mmol/L (136-145) Potassium Level 2.9 mmol/L (3.5-5.1) *L Chloride Level 97 mmol/L (98-107) L Carbon Dioxide Level 35 mmol/L (21-32) H Anion Gap 7 (6-14) Blood Urea Nitrogen 4 mg/dL (7-20) L Creatinine 1.2 mg/dL (0.6-1.0) H Estimated GFR (Cockcroft-Gault) 49.8 BUN/Creatinine Ratio 3 (6-20) L Glucose Level 90 mg/dL (70-99) Calcium Level 9.9 mg/dL (8.5-10.1) Total Bilirubin 0.3 mg/dL (0.2-1.0) Aspartate Amino Transferase (AST) 29 U/L (15-37) Alanine Aminotransferase (ALT) 27 U/L (14-59) Alkaline Phosphatase 143 U/L (46-116) H Total Protein 7.3 g/dL (6.4-8.2) Albumin 3.2 g/dL (3.4-5.0) L Albumin/Globulin Ratio 0.8 (1.0-1.7) L Lipase 325 U/L (73-393) Laboratory Tests 07/04/17 17:15 Laboratory Tests 07/04/17 17:15 EKG EKG [] Radiology/Procedures Radiology/Procedures [X-ray KUB] Course & Med Decision Making Course & Med Decision Making Pertinent Labs and Imaging studies reviewed. (See chart for details) [] Dragon Disclaimer Dragon Disclaimer This electronic medical record was generated, in whole or in part, using a voice recognition dictation system. Departure Departure Referrals: ANGEL ANDERSON Jr, MD (PCP) AMALIA SERRANO DO Jul 04, 2017 17:57
[2017-07-04 17:58] LABS: BARBITURATES NEG (NEG); BENZODIAZEPINES NEG (NEG); CANNABINOIDS POS (NEG); COCAINE NEG (NEG); METHADONE NEG (NEG); OPIATES NEG (NEG); PHENCYCLIDINE NEG (NEG)
[2017-07-04 17:59] LABS: POTASSIUM 2.9 mmol/L (3.5-5.1)
[2017-07-04] MEDS ORDERED: ONDANSETRON PF 4 MG/2 ML VIAL. IV ONE (18:00)
[2017-07-04] MEDS ORDERED: POTASSIUM CHLORIDE 20 MEQ/15 ML ORAL LIQUID. PO ONE (18:15)
[2017-07-04] MEDS ORDERED: D5 IV ONE (18:30)
[2017-07-04] MEDS ORDERED: [UNRECOGNIZED DRUG - OTHER] IV ONE (18:30)
[2017-07-04] MEDS ORDERED: POTASSIUM CL IV ONE (18:30)
[2017-07-04] MEDS ORDERED: FAMOTIDINE 20 MG/2 ML VIAL IVP ONE (19:15)
[2017-07-04] MEDS ORDERED: KETOROLAC 15 MG/ML VIAL. IV ONE (19:15)
[2017-07-04 21:20] VITALS: BP 126/87
[2017-07-04] MEDS ORDERED: IV NORMAL SALINE 1000ML BAG 1,000 ML IV SCH (21:23)
[2017-07-04] MEDS ORDERED: ONDANSETRON PF 4 MG/2 ML VIAL. IV PRN (21:30)
[2017-07-04] MEDS ORDERED: ALBUTEROL SULFATE 2.5 MG/3 ML NEBU. NEB PRN (21:45)
[2017-07-04] MEDS ORDERED: IPRATRPIUM/ALBUTEROL 0.5/2.5MG 3 ML NEBU. NEB ONE (22:00)
[2017-07-04] MEDS ORDERED: BUDESONIDE 0.5 MG/2 ML NEBU. NEB ONE (22:00)
[2017-07-04] MEDS ORDERED: fentaNYL PF VIAL 100 MCG/2 ML VIAL IV PRN (22:30)
--- NOTE | 2017-07-04 22:30 | PDOC1 ---
History and Physical Date of Admission Date of Admission DATE: 07/04/17 TIME: 22:26 Identification/Chief Complaint Chief Complaint back pain, abd pain, neck pain, head pain, nausea, shortness of breath Problems: Source Source: Caregiver, Chart review, Patient History of Present Illness History of Present Illness Ms Gu a 42 year old female, admit from ER with severe abd pain, and nausea with vomiting. nausea worse in the past 24 hours, with acute on ongoing pain, 9.5/10, mult areas of pain, also anxiety is high and she is short of breath, her asthma is in poor control prior admits here for similar, sx have presented here before, She has a history of chronic abdominal pain, chronic intermittent nausea vomiting, gastroparesis, appendectomy, removal of tumor, who oophorectomy, abdominal wall hernia repair with mesh. Patient's PCP is Dr. Jeremy Vernon. ] Past Medical History Cardiovascular: No pertinent hx Pulmonary: Asthma, Pneumonia GI: GERD Heme/Onc: Anemia NOS Hepatobiliary: No pertinent hx Psych: Anxiety, Depression, Other Musculoskeletal: Other Rheumatologic: No pertinent hx Infectious disease: No pertinent hx Renal/: No pertinent hx Endocrine: Hypothyroidism Past Surgical History Past Surgical History: Appendectomy, Hernia Repair, Tonsillectomy, Hysterectomy Family History Family History: Hypertension Social History Smoke: No ALCOHOL: none Drugs: Marijuana Current Problem List Problem List Problems Medical Problems: (1) Acute kidney injury (nontraumatic) Status: Acute Problems: Current Medications Current Medications Current Medications Sodium Chloride 1,000 ml @ 1,000 mls/hr 1X ONCE IV Last administered on 17:46; Start 07/04/17 at 17:45; Stop 07/04/17 at 18:44; Status DC Dicyclomine HCl (Bentyl) 20 mg 1X ONCE IM Last administered on 07/04/17 17:53 ; Start 07/04/17 at 17:45; Stop 07/04/17 at 17:46; Status DC Ondansetron HCl (Zofran) 8 mg 1X ONCE IV Last administered on 07/04/17 18:20 ; Start 07/04/17 at 18:00; Stop 07/04/17 at 18:01; Status DC Potassium Chloride (KCl Oral Soln) 40 meq 1X ONCE PO Last administered on 07/04 18:20; Start 07/04/17 at 18:15; Stop 07/04/17 at 18:16; Status DC Potassium Chloride/Dextrose/ Sod Cl 500 ml @ 100 mls/hr 1X ONCE IV Last administered on 07/04/17 18:32; Start 07/04/17 at 18:30; Stop 07/04/17 at 23:29 Ketorolac Tromethamine (Toradol) 15 mg 1X ONCE IV Last administered on 19:16; Start 07/04/17 at 19:15; Stop 07/04/17 at 19:16; Status DC Famotidine (Pepcid) 20 mg 1X ONCE IVP Last administered on 07/04/17 19:17; Start 07/04/17 at 19:15; Stop 07/04/17 at 19:16; Status DC Ondansetron HCl (Zofran) 4 mg PRN Q8HRS PRN IV NAUSEA/VOMITING; Start 07/04/17 at 21:30; Stop 07/05/17 at 21:29 Sodium Chloride 1,000 ml @ 75 mls/hr [id number] IV ; Start 07/04/17 at 21:23; Stop 07/05/17 at 21:22 Albuterol/ Ipratropium (Duoneb) 3 ml 1X ONCE NEB Last administered on 22:09; Start 07/04/17 at 22:00; Stop 07/04/17 at 22:01; Status DC Albuterol/ Ipratropium (Duoneb) 3 ml RTQID NEB ; Start 07/05/17 at 08:00 Albuterol Sulfate (Ventolin Neb Soln) 2.5 mg PRN Q4HRS PRN NEB SHORTNESS OF BREATH; Start 07/04/17 at 21:45 Budesonide (Pulmicort) 0.5 mg RTBID NEB ; Start 07/05/17 at 08:00 Budesonide (Pulmicort) 0.5 mg 1X ONCE NEB Last administered on 07/04/17 22:09 ; Start 07/04/17 at 22:00; Stop 07/04/17 at 22:01; Status DC Magnesium Sulfate/ Dextrose 50 ml @ 25 mls/hr 1X ONCE IV ; Start 07/04/17 at 22 :30; Stop 07/05/17 at 00:29; Status UNV Active Scripts Active Zofran (Ondansetron Hcl) 4 Mg Tablet 1 Tab PO Q6HRS Reported Gabapentin 800 Mg Tablet 800 Mg PO [id number] Potassium Chloride 20 Meq Tab.er.prt 20 Meq PO DAILY Klonopin (Clonazepam) 1 Mg Tablet 1 Tab PO TID Ventolin Hfa Inhaler (Albuterol Sulfate) 18 Gm Hfa.aer.ad 18 Gm IH PRN Q4HRS Allergies Allergies: Coded Allergies: Sulfa (Sulfonamide Antibiotics) (Verified Allergy, Intermediate, hives, ) ciprofloxacin (Verified Allergy, Intermediate, swelling, 01/27/16) ciprofloxacin HCl (Verified Allergy, Intermediate, swelling, 01/27/16) morphine (Verified Allergy, Intermediate, Hives-TOLERATES DILAUDID, ) HIVES DEVELOPED AFTER ADMINISTRATION OF MORPHINE ON 02/06/2014 TOLERATES DILAUDID Haloperidol Lactate (Verified Adverse Reaction, Intermediate, Altered Mental Status, 01/27/16) erythromycin base (Verified Adverse Reaction, Intermediate, "IT CAUSED ME TO BE BED SICK FOR A WEEK", 01/27/16) haloperidol (Verified Adverse Reaction, Intermediate, Altered Mental Status, 01/27/16) quetiapine fumarate (Verified Adverse Reaction, Intermediate, "jolts going throgh my body", 06/08/17) somatropin (Verified Adverse Reaction, Intermediate, Acathasia, 01/27/16) ROS General: YES: Fatigue, Malaise, Appetite, No: Chills, Night Sweats, Other PSYCHOLOGICAL ROS: YES: Anxiety, Irritablity, Sleep disturbances, No: Behavioral Disorder, Concentration difficultie, Decreased libido, Depression, Disorientation, Hallucinations, Hostility, Memory difficulties, Mood Swings, Obsessive thoughts, Other Eyes: No Blurry vision, No Decreased vision, No Double vision, No Dry eyes, No Excessive tearing, No Eye Pain, No Itchy Eyes, No Loss of vision, No Photophobia , No Scotomata, No Uses contacts, No Uses glasses, No Other HEENT: YES: Heacaches, No: Visual Changes, Hearing change, Nasal congestion, Nasal discharge, Oral lesions, Sinus pain, Sore Throat, Epistaxis, Sneezing, Snoring, Tinnitus, Vertigo, Vocal changes, Other Respiratory: YES: Cough, Shortness of breath, SOB with excertion, Tachypnea, Wheezing, No: Hemoptysis, Orthopnea, Pleuritic Pain, Sputum Changes, Stridor, Other Cardiovascular: yes Chest Pain, No Palpitations, No Orthopnea, No Paroxysmal Noc. Dyspnea, No Edema, No Lt Headedness, No Other Gastrointestinal: Yes Nausea, Yes Abdominal Pain, No Diarrhea, No Constipation, No Melena, No Hematochezia, No Other Genitourinary: No Dysuria, No Frequency, No Incontinence, No Hematuria, No Retention, No Discharge, No Urgency, No Pain, No Flank Pain, No Other, No , No , No , No , No , No , No Musculoskeletal: Yes Joint Pain, Yes Joint Stiffness, Yes Pain In: (back), No Gait Disturbance, No Joint Swelling, No Muscle Pain, No Muscular Weakness , No Swelling In:, No Other Neurological: No Behavorial Changes, No Bowel/Bladder ControlChng, No Confusion , No Dizziness, No Headaches, No Impaired Coord/balance, No Memory Loss, No Numbness/Tingling, No Seizures, No Speech Problems, No Tremors, No Visual Changes, No Weakness, No Other Skin: No Dry Skin, No Eczema, No Hair Changes, No Lumps, No Mole Changes, No Mottling, No Nail Changes, No Pruritus, No Rash, No Skin Lesion Changes, No Other, No Acne Physical Exam General: Alert, Cooperative, mild distress HEENT: Atraumatic, PERRLA Lungs: Other (wheeze, moderate volume, no crackles, ) Abdomen: Soft (tender to palpation, some erythema from use of heating pad at home, ), No masses, Other (allodynia, surg scan midline) Rectal Exam: deferred Extremities: No clubbing, No cyanosis, No edema Skin: No significant lesion, Other (slight pigment change to abdomen, likely the heating pad) Neuro: Normal speech, Cranial nerves 3-12 NL Psych/Mental Status: Mood NL, Other (odd, flat affect) Vitals Vitals Vital Signs Date Time Temp Pulse Resp B/P (MAP) Pulse Ox O2 Delivery O2 Flow Rate FiO2 07/04/17 22:12 99 Room Air 07/04/17 20:26 76 24 97/67 (77) 07/04/17 17:12 97.4 97.4 Labs Labs Laboratory Tests Test 07/04/17 17:08 07/04/17 17:15 Urine Collection Type Unknown Urine Color Yellow Urine Clarity Cloudy Urine pH 8.0 Urine Specific [place] 1.020 Urine Protein Negative mg/dL (NEG-TRACE) Urine Glucose (UA) Negative mg/dL (NEG) Urine Ketones (Stick) Negative mg/dL (NEG) Urine Blood Negative (NEG) Urine Nitrite Negative (NEG) Urine Bilirubin Negative (NEG) Urine Urobilinogen Dipstick 0.2 mg/dL (0.2 mg/dL) Urine Leukocyte Esterase Negative (NEG) Urine RBC 1-2 /HPF (0-2) Urine WBC 1-4 /HPF (0-4) Urine Squamous Epithelial Cells Few /LPF Urine Bacteria 0 /HPF (0-FEW) Urine Hyaline Casts Few /HPF Urine Mucus Slight /LPF Urine Opiates Screen Neg (NEG) Urine Methadone Screen Neg (NEG) Urine Barbiturates Neg (NEG) Urine Phencyclidine Screen Neg (NEG) Urine Amphetamine/Methamphetamine Neg (NEG) Urine Benzodiazepines Screen Neg (NEG) Urine Cocaine Screen Neg (NEG) Urine Cannabinoids Screen Pos (NEG) Urine Ethyl Alcohol Neg (NEG) White Blood Count 6.3 x10^3/uL (4.0-11.0) Red Blood Count 5.29 x10^6/uL (3.50-5.40) Hemoglobin 14.9 g/dL (12.0-15.5) Hematocrit 44.2 % (36.0-47.0) Mean Corpuscular Volume 84 fL (79-100) Mean Corpuscular Hemoglobin 28 pg (25-35) Mean Corpuscular Hemoglobin Concent 34 g/dL (31-37) Red Cell Distribution Width 15.5 % (11.5-14.5) Platelet Count 294 x10^3/uL (140-400) Neutrophils (%) (Auto) 37 % (31-73) Lymphocytes (%) (Auto) 46 % (24-48) Monocytes (%) (Auto) 9 % (0-9) Eosinophils (%) (Auto) 7 % (0-3) Basophils (%) (Auto) 1 % (0-3) Neutrophils # (Auto) 2.3 x10^3uL (1.8-7.7) Lymphocytes # (Auto) 2.9 x10^3/uL (1.0-4.8) Monocytes # (Auto) 0.6 x10^3/uL (0.0-1.1) Eosinophils # (Auto) 0.4 x10^3/uL (0.0-0.7) Basophils # (Auto) 0.1 x10^3/uL (0.0-0.2) Sodium Level 139 mmol/L (136-145) Potassium Level 2.9 mmol/L (3.5-5.1) Chloride Level 97 mmol/L (98-107) Carbon Dioxide Level 35 mmol/L (21-32) Anion Gap 7 (6-14) Blood Urea Nitrogen 4 mg/dL (7-20) Creatinine 1.2 mg/dL (0.6-1.0) Estimated GFR (Cockcroft-Gault) 49.8 BUN/Creatinine Ratio 3 (6-20) Glucose Level 90 mg/dL (70-99) Calcium Level 9.9 mg/dL (8.5-10.1) Total Bilirubin 0.3 mg/dL (0.2-1.0) Aspartate Amino Transf (AST/SGOT) 29 U/L (15-37) Alanine Aminotransferase (ALT/SGPT) 27 U/L (14-59) Alkaline Phosphatase 143 U/L (46-116) Total Protein 7.3 g/dL (6.4-8.2) Albumin 3.2 g/dL (3.4-5.0) Albumin/Globulin Ratio 0.8 (1.0-1.7) Lipase 325 U/L (73-393) Laboratory Tests Test 07/04/17 17:08 07/04/17 17:15 Urine Collection Type Unknown Urine Color Yellow Urine Clarity Cloudy Urine pH 8.0 Urine Specific [place] 1.020 Urine Protein Negative mg/dL (NEG-TRACE) Urine Glucose (UA) Negative mg/dL (NEG) Urine Ketones (Stick) Negative mg/dL (NEG) Urine Blood Negative (NEG) Urine Nitrite Negative (NEG) Urine Bilirubin Negative (NEG) Urine Urobilinogen Dipstick 0.2 mg/dL (0.2 mg/dL) Urine Leukocyte Esterase Negative (NEG) Urine RBC 1-2 /HPF (0-2) Urine WBC 1-4 /HPF (0-4) Urine Squamous Epithelial Cells Few /LPF Urine Bacteria 0 /HPF (0-FEW) Urine Hyaline Casts Few /HPF Urine Mucus Slight /LPF Urine Opiates Screen Neg (NEG) Urine Methadone Screen Neg (NEG) Urine Barbiturates Neg (NEG) Urine Phencyclidine Screen Neg (NEG) Urine Amphetamine/Methamphetamine Neg (NEG) Urine Benzodiazepines Screen Neg (NEG) Urine Cocaine Screen Neg (NEG) Urine Cannabinoids Screen Pos (NEG) Urine Ethyl Alcohol Neg (NEG) White Blood Count 6.3 x10^3/uL (4.0-11.0) Red Blood Count 5.29 x10^6/uL (3.50-5.40) Hemoglobin 14.9 g/dL (12.0-15.5) Hematocrit 44.2 % (36.0-47.0) Mean Corpuscular Volume 84 fL (79-100) Mean Corpuscular Hemoglobin 28 pg (25-35) Mean Corpuscular Hemoglobin Concent 34 g/dL (31-37) Red Cell Distribution Width 15.5 % (11.5-14.5) Platelet Count 294 x10^3/uL (140-400) Neutrophils (%) (Auto) 37 % (31-73) Lymphocytes (%) (Auto) 46 % (24-48) Monocytes (%) (Auto) 9 % (0-9) Eosinophils (%) (Auto) 7 % (0-3) Basophils (%) (Auto) 1 % (0-3) Neutrophils # (Auto) 2.3 x10^3uL (1.8-7.7) Lymphocytes # (Auto) 2.9 x10^3/uL (1.0-4.8) Monocytes # (Auto) 0.6 x10^3/uL (0.0-1.1) Eosinophils # (Auto) 0.4 x10^3/uL (0.0-0.7) Basophils # (Auto) 0.1 x10^3/uL (0.0-0.2) Sodium Level 139 mmol/L (136-145) Potassium Level 2.9 mmol/L (3.5-5.1) Chloride Level 97 mmol/L (98-107) Carbon Dioxide Level 35 mmol/L (21-32) Anion Gap 7 (6-14) Blood Urea Nitrogen 4 mg/dL (7-20) Creatinine 1.2 mg/dL (0.6-1.0) Estimated GFR (Cockcroft-Gault) 49.8 BUN/Creatinine Ratio 3 (6-20) Glucose Level 90 mg/dL (70-99) Calcium Level 9.9 mg/dL (8.5-10.1) Total Bilirubin 0.3 mg/dL (0.2-1.0) Aspartate Amino Transf (AST/SGOT) 29 U/L (15-37) Alanine Aminotransferase (ALT/SGPT) 27 U/L (14-59) Alkaline Phosphatase 143 U/L (46-116) Total Protein 7.3 g/dL (6.4-8.2) Albumin 3.2 g/dL (3.4-5.0) Albumin/Globulin Ratio 0.8 (1.0-1.7) Lipase 325 U/L (73-393) VTE Prophylaxis Ordered VTE Prophylaxis Devices: Yes VTE Pharmacological Prophylaxi: No Assessment/Plan Assessment/Plan nausea vomiting and abdominal pain, gastoparesis, chronic abd pain, prior abd and clinical therapist mesh Back pain, acute on chronic hypokalemia acute vasomotor nephropathy Asthma, moderate/severe, poor control, no steroid inhaler at home, and was not aware that using rescue inhaler BID was a bad thing anxiety d/o PTSD chronic neuropathic pain she thinks her abd pain might be better with an abd binder, consult Dr. Velez, back pain and allodynic abd pain VANESA REDDY MD Jul 04, 2017 22:30
[2017-07-04 23:00] VITALS: BP 101/61
[2017-07-04] MEDS: GABAPENTIN 400 MG CAPSULE. PO SCH (23:00)
[2017-07-04] MEDS: clonazePAM 1 MG TABLET PO SCH (23:00)
[2017-07-04] MEDS ORDERED: MAGNESIUM SULFATE 2GM 50 ML IV ONE (23:00)
[2017-07-04] MEDS: fentaNYL PF VIAL 100 MCG/2 ML VIAL IV PRN (23:01)
[2017-07-05 03:00] VITALS: BP 90/55
[2017-07-05 03:57] LABS: BASO % 1 % (0-3); EOS % 6 % (0-3); HEMATOCRIT 37.7 % (36.0-47.0); HEMOGLOBIN 12.3 g/dL (12.0-15.5); LYMPH # 1.7 x10^3/uL (1.0-4.8); LYMPH % 29 % (24-48); MEAN CORPUSCULAR HEMOGLOBIN 28 pg (25-35); MEAN CORPUSCULAR HGB CONC 33 g/dL (31-37); MEAN CORPUSCULAR VOLUME 85 fL (79-100); MONO % 7 % (0-9); NEUT % 57 % (31-73); PLATELET COUNT 218 x10^3/uL (140-400); RED BLOOD COUNT 4.45 x10^6/uL (3.50-5.40); RED CELL DISTRIBUTION WIDTH 15.5 % (11.5-14.5); WHITE BLOOD COUNT 5.6 x10^3/uL (4.0-11.0)
[2017-07-05 04:38] LABS: CALCIUM 9.1 mg/dL (8.5-10.1); CREATININE 0.9 mg/dL (0.6-1.0); GFR 69.3; POTASSIUM 3.9 mmol/L (3.5-5.1)
[2017-07-05 07:00] VITALS: BP 106/63
--- NOTE | 2017-07-05 07:37 | RAD ---
EXAM: Abdomen one view. HISTORY: Nausea, vomiting, abdominal pain. COMPARISON: 06/09/2017. FINDINGS: A frontal view of the abdomen is obtained. There are no distended small bowel loops. There is gas distally. Postsurgical changes are seen in the left paraspinal distribution and throughout the mid abdomen. There is a mild lumbar dextrocurvature. IMPRESSION: 1. No evidence of obstruction.
--- NOTE | 2017-07-05 07:45 | EKG ---
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
[2017-07-05] MEDS ORDERED: BUDESONIDE 0.5 MG/2 ML NEBU. NEB SCH (08:00)
[2017-07-05] MEDS ORDERED: IPRATRPIUM/ALBUTEROL 0.5/2.5MG 3 ML NEBU. NEB SCH (08:00)
[2017-07-05] MEDS: GABAPENTIN 400 MG CAPSULE. PO SCH (08:57)
[2017-07-05] MEDS: clonazePAM 1 MG TABLET PO SCH (08:58)
[2017-07-05] MEDS ORDERED: POLYETHYLENE GLYCOL 3350 17 GM PACKET. PO SCH (09:00)
[2017-07-05] MEDS ORDERED: DOCUSATE SODIUM 100 MG CAPSULE. PO SCH (09:00)
[2017-07-05] MEDS: fentaNYL PF VIAL 100 MCG/2 ML VIAL IV PRN (09:03)
--- NOTE | 2017-07-05 10:01 | PDOC2 ---
GI CONSULT Reason For Consult: Gastroparesis HPI: HPI: 42 y/[address] female who Dr. Hogue has in the past, most recently on 06/08/17. Chronic GI issues include nausea, vomiting, GERD, and abdominal pain. Apparently supposed to see regular doctor yesterday but says she was in too much pain so her mother brought her here. Avoids PPIs becaose of "Britta" - says omeprazole caused previous infection ("it was everywhere - in my intestines "). Feels this might be recurring based on abdominal pain/burning. Takes Pepcid QD which helps reflux, occasionally ASA for abd pain. Last BM yesterday , feels could go again now. This morning still has pain but tolerating sips of clears, thinks soup sounds good. Last EGD and colonoscopy in 03/2017 @ [facility] for "hematemesis" in 03/2017 were normal w/ normal random biopsies. Also 'scoped in the past @ [facility] and [facility]. EGD in 2010 showed chronic gastritis and colonoscopy in 2013 was normal with normal random biopsies. SBCE in 2013 was negative. Additional testing includes GES ( @ [facility]) in 06/2015 showing moderately delayed gastric emptying w/ T1/2 of 171 min. Reglan caused muscle stiffness, reports allergy to erythromycin. Uses marijuana sometimes, not regularly. PIPIDA (@[facility]) in 06/2017 was normal w/ GB EF of 43%. She reports h/o ovarian cancer w/ tumor removal/oophorectomy years ago w/ hysterectomy in 2012 (done for endometriosis - able to view records previously) , hernia repair w/ mesh (also "pelvic mesh"), appendectomy, ?C Diff (treated w/ vanco and Flagyl), hemorrhoids. No GB, liver, or pancreatic history. No NSAID use or pain medication of any kind at home. PMH: PMH: per HPI + anxiety and depression, PTSD, ?bipolar disorder, asthma and allergies , hypothyroidism FH: Family History: Cancer (stomach - GGM) Social History: Smoke: No ALCOHOL: none Drugs: Marijuana ROS: GEN: Denies fevers, chills, sweats HEENT: Denies blurred vision, sore throat CV: Denies chest pain RESP: Denies shortness of air, cough GI: Per HPI : Denies hematuria, dysuria ENDO: +weight loss NEURO: Denies confusion, dizziness MSK: +weakness SKIN: Denies jaundice, pruritus Vitals: Vitals: Vital Signs Date Time Temp Pulse Resp B/P (MAP) Pulse Ox O2 Delivery O2 Flow Rate FiO2 07/05/17 09:03 Room Air 07/05/17 07:39 99 07/05/17 07:00 98.1 110 17 106/63 (77) 98.1 Labs: Labs: Laboratory Tests Test 07/04/17 17:08 07/04/17 17:15 07/05/17 03:19 Urine Collection Type Unknown Urine Color Yellow Urine Clarity Cloudy Urine pH 8.0 Urine Specific [place] 1.020 Urine Protein Negative mg/dL (NEG-TRACE) Urine Glucose (UA) Negative mg/dL (NEG) Urine Ketones (Stick) Negative mg/dL (NEG) Urine Blood Negative (NEG) Urine Nitrite Negative (NEG) Urine Bilirubin Negative (NEG) Urine Urobilinogen Dipstick 0.2 mg/dL (0.2 mg/dL) Urine Leukocyte Esterase Negative (NEG) Urine RBC 1-2 /HPF (0-2) Urine WBC 1-4 /HPF (0-4) Urine Squamous Epithelial Cells Few /LPF Urine Bacteria 0 /HPF (0-FEW) Urine Hyaline Casts Few /HPF Urine Mucus Slight /LPF Urine Opiates Screen Neg (NEG) Urine Methadone Screen Neg (NEG) Urine Barbiturates Neg (NEG) Urine Phencyclidine Screen Neg (NEG) Urine Amphetamine/Methamphetamine Neg (NEG) Urine Benzodiazepines Screen Neg (NEG) Urine Cocaine Screen Neg (NEG) Urine Cannabinoids Screen Pos (NEG) Urine Ethyl Alcohol Neg (NEG) White Blood Count 6.3 x10^3/uL (4.0-11.0) 5.6 x10^3/uL (4.0-11.0) Red Blood Count 5.29 x10^6/uL (3.50-5.40) 4.45 x10^6/uL (3.50-5.40) Hemoglobin 14.9 g/dL (12.0-15.5) 12.3 g/dL (12.0-15.5) Hematocrit 44.2 % (36.0-47.0) 37.7 % (36.0-47.0) Mean Corpuscular Volume 84 fL (79-100) 85 fL (79-100) Mean Corpuscular Hemoglobin 28 pg (25-35) 28 pg (25-35) Mean Corpuscular Hemoglobin Concent 34 g/dL (31-37) 33 g/dL (31-37) Red Cell Distribution Width 15.5 % (11.5-14.5) 15.5 % (11.5-14.5) Platelet Count 294 x10^3/uL (140-400) 218 x10^3/uL (140-400) Neutrophils (%) (Auto) 37 % (31-73) 57 % (31-73) Lymphocytes (%) (Auto) 46 % (24-48) 29 % (24-48) Monocytes (%) (Auto) 9 % (0-9) 7 % (0-9) Eosinophils (%) (Auto) 7 % (0-3) 6 % (0-3) Basophils (%) (Auto) 1 % (0-3) 1 % (0-3) Neutrophils # (Auto) 2.3 x10^3uL (1.8-7.7) 3.2 x10^3uL (1.8-7.7) Lymphocytes # (Auto) 2.9 x10^3/uL (1.0-4.8) 1.7 x10^3/uL (1.0-4.8) Monocytes # (Auto) 0.6 x10^3/uL (0.0-1.1) 0.4 x10^3/uL (0.0-1.1) Eosinophils # (Auto) 0.4 x10^3/uL (0.0-0.7) 0.3 x10^3/uL (0.0-0.7) Basophils # (Auto) 0.1 x10^3/uL (0.0-0.2) 0.0 x10^3/uL (0.0-0.2) Sodium Level 139 mmol/L (136-145) 145 mmol/L (136-145) Potassium Level 2.9 mmol/L (3.5-5.1) 3.9 mmol/L (3.5-5.1) Chloride Level 97 mmol/L (98-107) 110 mmol/L (98-107) Carbon Dioxide Level 35 mmol/L (21-32) 29 mmol/L (21-32) Anion Gap 7 (6-14) 6 (6-14) Blood Urea Nitrogen 4 mg/dL (7-20) 3 mg/dL (7-20) Creatinine 1.2 mg/dL (0.6-1.0) 0.9 mg/dL (0.6-1.0) Estimated GFR (Cockcroft-Gault) 49.8 69.3 BUN/Creatinine Ratio 3 (6-20) Glucose Level 90 mg/dL (70-99) 110 mg/dL (70-99) Calcium Level 9.9 mg/dL (8.5-10.1) 9.1 mg/dL (8.5-10.1) Total Bilirubin 0.3 mg/dL (0.2-1.0) Aspartate Amino Transf (AST/SGOT) 29 U/L (15-37) Alanine Aminotransferase (ALT/SGPT) 27 U/L (14-59) Alkaline Phosphatase 143 U/L (46-116) Total Protein 7.3 g/dL (6.4-8.2) Albumin 3.2 g/dL (3.4-5.0) Albumin/Globulin Ratio 0.8 (1.0-1.7) Lipase 325 U/L (73-393) Magnesium Level 2.7 mg/dL (1.8-2.4) Allergies: Coded Allergies: Sulfa (Sulfonamide Antibiotics) (Verified Allergy, Intermediate, hives, ) ciprofloxacin (Verified Allergy, Intermediate, swelling, 01/27/16) ciprofloxacin HCl (Verified Allergy, Intermediate, swelling, 01/27/16) morphine (Verified Allergy, Intermediate, Hives-TOLERATES DILAUDID, ) HIVES DEVELOPED AFTER ADMINISTRATION OF MORPHINE ON 02/06/2014 TOLERATES DILAUDID Haloperidol Lactate (Verified Adverse Reaction, Intermediate, Altered Mental Status, 01/27/16) erythromycin base (Verified Adverse Reaction, Intermediate, "IT CAUSED ME TO BE BED SICK FOR A WEEK", 01/27/16) haloperidol (Verified Adverse Reaction, Intermediate, Altered Mental Status, 01/27/16) quetiapine fumarate (Verified Adverse Reaction, Intermediate, "jolts going throgh my body", 06/08/17) somatropin (Verified Adverse Reaction, Intermediate, Acathasia, 01/27/16) Medications: Current Medications Medications (Trade) Dose Ordered Sig/Anmol Route PRN Reason Start Time Stop Time Status Last Admin Dose Admin Sodium Chloride 1,000 ml @ 1,000 mls/hr 1X ONCE IV 07/04/17 17:45 07/04/17 18:44 DC 07/04/17 17:46 Dicyclomine HCl (Bentyl) 20 mg 1X ONCE IM 07/04/17 17:45 07/04/17 17:46 DC 07/04/17 17:53 Ondansetron HCl (Zofran) 8 mg 1X ONCE IV 07/04/17 18:00 07/04/17 18:01 DC 07/04/17 18:20 Potassium Chloride (KCl Oral Soln) 40 meq 1X ONCE PO 07/04/17 18:15 07/04/17 18:16 DC 07/04/17 18:20 Potassium Chloride/Dextrose/ Sod Cl 500 ml @ 100 mls/hr 1X ONCE IV 07/04/17 18:30 07/04/17 23:29 DC 07/04/17 18:32 Ketorolac Tromethamine (Toradol) 15 mg 1X ONCE IV 07/04/17 19:15 07/04/17 19:16 DC 07/04/17 19:16 Famotidine (Pepcid) 20 mg 1X ONCE IVP 07/04/17 19:15 07/04/17 19:16 DC 07/04/17 19:17 Ondansetron HCl (Zofran) 4 mg PRN Q8HRS PRN IV NAUSEA/VOMITING 07/04/17 21:30 07/05/17 21:29 07/04/17 22:59 Sodium Chloride 1,000 ml @ 75 mls/hr [id number] IV 07/04/17 21:23 07/05/17 21:22 07/05/17 03:42 Albuterol/ Ipratropium (Duoneb) 3 ml 1X ONCE NEB 07/04/17 22:00 07/04/17 22:01 DC 07/04/17 22:09 Albuterol/ Ipratropium (Duoneb) 3 ml RTQID NEB 07/05/17 08:00 07/05/17 07:39 Budesonide (Pulmicort) 0.5 mg RTBID NEB 07/05/17 08:00 07/05/17 07:39 Budesonide (Pulmicort) 0.5 mg 1X ONCE NEB 07/04/17 22:00 07/04/17 22:01 DC 07/04/17 22:09 Magnesium Sulfate/ Dextrose 50 ml @ 25 mls/hr 1X ONCE IV 07/04/17 23:00 07/05/17 00:59 DC 07/04/17 23:02 Gabapentin (Neurontin) 800 mg QID PO 07/04/17 23:00 07/05/17 08:57 Clonazepam (KlonoPIN) 1 mg TID PO 07/04/17 23:00 07/05/17 08:58 Fentanyl Citrate (Fentanyl 2ml Vial) 50 mcg PRN Q2HR PRN IV SEVERE PAIN 07/04/17 22:30 07/05/17 09:03 Imaging: Imaging: KUB 07/04/17 IMPRESSION: 1. No evidence of obstruction. PE: GEN: NAD HEENT: Atraumatic, PERRL LUNGS: CTAB HEART: RRR ABD: BS+, soft, diffusely tender EXTREMITY: No edema SKIN: light brown discoloration on abd NEURO/PSYCH: A & O 3 A/P: A/P: Chronic n/v, abd pain -h/o GERD ---> avoids PPIs, currently on H2 kym QD -h/o gastroparesis ---> moderate delay in 2014; intolerant to Reglan and erythromycin -last EGD/colon normal in 03/2017 -SBCE normal in 2013, PIPIDA normal in 2016 -uses marijuana -- Chronic problems. Currently feeling better - asks if she might go home today. Will restart PPI, ADAT. ?SBFT PRISCA ONEIL Jul 05, 2017 10:01
[2017-07-05] MEDS ORDERED: METOCLOPRAMIDE ORAL SOLN 10 MG/10 ML SOLUTION. PO PRN (10:15)
[2017-07-05] MEDS ORDERED: NON FORMULARY ITEM (Albuterol Sulfate (Ventolin Hfa Inhaler) 18 GM) IH SCH (10:15)
[2017-07-05] MEDS ORDERED: clonazePAM 1 MG TABLET PO SCH (10:15)
[2017-07-05] MEDS ORDERED: oxyCODONE/APAP 5/325 1 TAB TABLET PO PRN (10:15)
--- NOTE | 2017-07-05 10:28 | PDOC ---
PROGRESS NOTES Chief Complaint Chief Complaint Acute abd pain, N/V ASSESSMENT AND PLAN: 1. Acute on chronic abd pain: hx mult abd/pelvic surgeries. pt thinks her abd pain might be better with an abd binder, consult Dr. Velez, back pain and allodynic abd pain 2. gastroparesis: N/V improved. Reglan PRN. 3. Acute on chronic back pain, chronic neuropathic pain: cont home neurontin 4. KEVIN: vasomotor; resolved 5. Hypokalemia: repleted. monitor 6. Asthma: on nebs. Pulm consulted 7. Anxiety/PTSD: cont home meds 8. Dispo: pt would like to go home later today History of Present Illness History of Present Illness much improved, pain resolved. has not eaten yet Vitals Vitals Vital Signs Date Time Temp Pulse Resp B/P (MAP) Pulse Ox O2 Delivery O2 Flow Rate FiO2 07/05/17 09:03 Room Air 07/05/17 07:39 99 07/05/17 07:00 98.1 110 17 106/63 (77) 98.1 Physical Exam General: Alert, Cooperative, No acute distress Heart: Regular rate Lungs: Clear, Other Abdomen: Soft, No tenderness, Other (surg scan midline) Extremities: No clubbing, No cyanosis, No edema, No tenderness/swelling Skin: Other (slight pigment change to abdomen, likely the heating pad) Labs LABS Laboratory Tests Test 07/04/17 17:08 07/04/17 17:15 07/05/17 03:19 Urine Collection Type Unknown Urine Color Yellow Urine Clarity Cloudy Urine pH 8.0 Urine Specific [place] 1.020 Urine Protein Negative mg/dL (NEG-TRACE) Urine Glucose (UA) Negative mg/dL (NEG) Urine Ketones (Stick) Negative mg/dL (NEG) Urine Blood Negative (NEG) Urine Nitrite Negative (NEG) Urine Bilirubin Negative (NEG) Urine Urobilinogen Dipstick 0.2 mg/dL (0.2 mg/dL) Urine Leukocyte Esterase Negative (NEG) Urine RBC 1-2 /HPF (0-2) Urine WBC 1-4 /HPF (0-4) Urine Squamous Epithelial Cells Few /LPF Urine Bacteria 0 /HPF (0-FEW) Urine Hyaline Casts Few /HPF Urine Mucus Slight /LPF Urine Opiates Screen Neg (NEG) Urine Methadone Screen Neg (NEG) Urine Barbiturates Neg (NEG) Urine Phencyclidine Screen Neg (NEG) Urine Amphetamine/Methamphetamine Neg (NEG) Urine Benzodiazepines Screen Neg (NEG) Urine Cocaine Screen Neg (NEG) Urine Cannabinoids Screen Pos (NEG) Urine Ethyl Alcohol Neg (NEG) White Blood Count 6.3 x10^3/uL (4.0-11.0) 5.6 x10^3/uL (4.0-11.0) Red Blood Count 5.29 x10^6/uL (3.50-5.40) 4.45 x10^6/uL (3.50-5.40) Hemoglobin 14.9 g/dL (12.0-15.5) 12.3 g/dL (12.0-15.5) Hematocrit 44.2 % (36.0-47.0) 37.7 % (36.0-47.0) Mean Corpuscular Volume 84 fL (79-100) 85 fL (79-100) Mean Corpuscular Hemoglobin 28 pg (25-35) 28 pg (25-35) Mean Corpuscular Hemoglobin Concent 34 g/dL (31-37) 33 g/dL (31-37) Red Cell Distribution Width 15.5 % (11.5-14.5) 15.5 % (11.5-14.5) Platelet Count 294 x10^3/uL (140-400) 218 x10^3/uL (140-400) Neutrophils (%) (Auto) 37 % (31-73) 57 % (31-73) Lymphocytes (%) (Auto) 46 % (24-48) 29 % (24-48) Monocytes (%) (Auto) 9 % (0-9) 7 % (0-9) Eosinophils (%) (Auto) 7 % (0-3) 6 % (0-3) Basophils (%) (Auto) 1 % (0-3) 1 % (0-3) Neutrophils # (Auto) 2.3 x10^3uL (1.8-7.7) 3.2 x10^3uL (1.8-7.7) Lymphocytes # (Auto) 2.9 x10^3/uL (1.0-4.8) 1.7 x10^3/uL (1.0-4.8) Monocytes # (Auto) 0.6 x10^3/uL (0.0-1.1) 0.4 x10^3/uL (0.0-1.1) Eosinophils # (Auto) 0.4 x10^3/uL (0.0-0.7) 0.3 x10^3/uL (0.0-0.7) Basophils # (Auto) 0.1 x10^3/uL (0.0-0.2) 0.0 x10^3/uL (0.0-0.2) Sodium Level 139 mmol/L (136-145) 145 mmol/L (136-145) Potassium Level 2.9 mmol/L (3.5-5.1) 3.9 mmol/L (3.5-5.1) Chloride Level 97 mmol/L (98-107) 110 mmol/L (98-107) Carbon Dioxide Level 35 mmol/L (21-32) 29 mmol/L (21-32) Anion Gap 7 (6-14) 6 (6-14) Blood Urea Nitrogen 4 mg/dL (7-20) 3 mg/dL (7-20) Creatinine 1.2 mg/dL (0.6-1.0) 0.9 mg/dL (0.6-1.0) Estimated GFR (Cockcroft-Gault) 49.8 69.3 BUN/Creatinine Ratio 3 (6-20) Glucose Level 90 mg/dL (70-99) 110 mg/dL (70-99) Calcium Level 9.9 mg/dL (8.5-10.1) 9.1 mg/dL (8.5-10.1) Total Bilirubin 0.3 mg/dL (0.2-1.0) Aspartate Amino Transf (AST/SGOT) 29 U/L (15-37) Alanine Aminotransferase (ALT/SGPT) 27 U/L (14-59) Alkaline Phosphatase 143 U/L (46-116) Total Protein 7.3 g/dL (6.4-8.2) Albumin 3.2 g/dL (3.4-5.0) Albumin/Globulin Ratio 0.8 (1.0-1.7) Lipase 325 U/L (73-393) Magnesium Level 2.7 mg/dL (1.8-2.4) ADAN CLAY MD Jul 05, 2017 10:28
[2017-07-05] MEDS ORDERED: ALBUTEROL SULFATE 2.5 MG/3 ML NEBU. NEB PRN (10:45)
[2017-07-05 11:00] VITALS: BP 100/66
[2017-07-05] MEDS ORDERED: PANTOPRAZOLE 40 MG TABLET.DR. PO SCH (11:30)
[2017-07-05] MEDS ORDERED: POTASSIUM CHLORIDE 20 MEQ TABLET.ER. PO SCH (11:30)
[2017-07-05] MEDS ORDERED: NON FORMULARY ITEM (Ondansetron Hcl (Zofran) 1 TAB) PO SCH (12:00)
[2017-07-05] MEDS ORDERED: GABAPENTIN 400 MG CAPSULE. PO SCH (13:00)
--- NOTE | 2017-07-06 03:26 | CONS ---
DATE OF CONSULTATION: 07/05/2017 ATTENDING PHYSICIAN: Dr. Sanz. The patient was seen at the request of Dr. Sanz for rehab evaluation. 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 The patient was admitted to the Emergency Room with back, neck, abdominal pain, headache, nausea, shortness of breath and also vomiting The patient had KUB, which failed to reveal any acute abnormalities. The patient with history of chronic abdominal pain, chronic intermittent nausea, vomiting, gastroparesis, appendectomy, removal of tumor with oophorectomy, abdominal wall hernia repair with mesh, Dr. Jeremy Vernon is her family physician. PAST MEDICAL HISTORY: Also includes asthmatic bronchitis, pneumonia, gastroesophageal reflux disease, anemia, anxiety, depression, hypothyroidism. ALLERGIES: THE PATIENT IS KNOWN ALLERGIC TO HALDOL, SULFA, CIPRO, ERYTHROMYCIN BASE, MORPHINE, QUETIAPINE FUMARATE, SOMATROPIN. FAMILY HISTORY: The patient had a family history of hypertension, right now she is living with her mother and she had no steps per her to manage. She had a lumbar corset, but is too big for her. She had used marijuana in the past. PHYSICAL EXAMINATION: Today revealed young female patient in no acute distress. She is alert, oriented to time, place, person and circumstance and follows commands appropriately, moves all 4 extremities voluntarily where she had 4+/5 grade muscle strength. Deep tendon reflexes are 2+ and symmetrical and she had equal perception of touch and pinprick sensation bilaterally. She had diffuse tenderness to palpation over thoracic and lumbar paraspinal muscles extending over to right sacroiliac joint area. Straight leg raising test is negative bilaterally. She had pain free range of motion of all four extremity joints. She had painful limited movements of her thoracolumbar spine. She is not using proper body mechanics during mobility, but remains independent with bed mobility. I have not tested her transfers or ambulation skills at this time. ASSESSMENT: Young female with mild abdominal surgeries and chronic abdominal pain, also presents with chronic thoracolumbar area pain. No clinical evidence of thoracic or lumbar radiculopathy. RECOMMENDATION: To try physical therapy, to obtain MRI scan of her lumbar vertebrae to make sure she does not have any problems home with outpatient followup when she is medically stable. Dr. Sanz, I appreciate asking me to participate in the care of this interesting patient. I will be glad to follow her with you as needed for her rehabilitation. AL MOSQUEDA MD DR: DILIA/erika JOB#: [id number] / [id number]
--- NOTE | 2017-07-06 05:15 | DS ---
DATE OF DISCHARGE: 07/05/2017 CHIEF COMPLAINT: Acute abdominal pain, nausea and vomiting. HOSPITAL COURSE: The patient is a 42-year-old woman with history of gastroparesis, not on her Reglan at home, who presented to the Emergency Room with nausea, vomiting and ypvvi-[id number] abdominal pain. She voiced the opinion that she may actually be better with an abdominal binder, which she actually has at home except hers is too big. She was therefore seen by Dr. Velez, and a smaller binder was ordered. Her nausea and vomiting actually improved with antiemetics. She had a mild amount of acute kidney injury, which was deemed vasomotor and improved with IV fluids. Hypokalemia also was corrected prior to discharge with oral repletion. The patient was scheduled to see Pulmonology for asthma without having appropriate inhalers at home. The patient, however, insisted on going home prior to being seen. She also declined MRI recommended by Dr. Velez for chronic back pain. PHYSICAL EXAMINATION: VITAL SIGNS: Show blood pressure of 106/63, heart rate of 110, respiratory rate at 17. She is afebrile. GENERAL: This is a well-nourished 42-year-old woman, alert and oriented, in no acute distress. LUNGS: Clear. HEART: Regular rate and rhythm. ABDOMEN: Has positive bowel sounds, soft, nontender. EXTREMITIES: Show no edema. DISCHARGE DIAGNOSES: Rkrre-zl-ndhfrmt abdominal pain, gastroparesis, acute kidney injury and hypokalemia. DISCHARGE DISPOSITION: To home. DISCHARGE CONDITION: Improved. DISCHARGE MEDICATIONS: Please refer to MAR. DISCHARGE INSTRUCTIONS: The patient will follow up with her PCP in 1-2 weeks. ADAN CLAY MD DR: UR/nts JOB#: [id number] / [id number] ANGEL Davis MD
== END 2017-07-05 12:16 | disposition home or self-care (01) | DRG 391 ==
LOC: ER 16:52 → 5 NORTH 18:45
PROVIDERS: ADMIT Internal Medicine; ATTEND Internal Medicine
DX: K31.84 Gastroparesis (principal); N17.0 Acute kidney failure with tubular necrosis; Z88.8 Allergy status to other drugs, medicaments and biological substances; E03.9 Hypothyroidism, unspecified; E87.6 Hypokalemia; F12.90 Cannabis use, unspecified, uncomplicated; F31.9 Bipolar disorder, unspecified; F43.10 Post-traumatic stress disorder, unspecified; G89.29 Other chronic pain; J45.909 Unspecified asthma, uncomplicated; K21.9 Gastro-esophageal reflux disease without esophagitis; Z82.49 Family history of ischemic heart disease and other diseases of the circulatory system; Z85.43 Personal history of malignant neoplasm of ovary; Z90.49 Acquired absence of other specified parts of digestive tract; Z90.710 Acquired absence of both cervix and uterus; Z86.2 Personal history of diseases of the blood and blood-forming organs and certain disorders involving the immune mechanism; Z87.01 Personal history of pneumonia (recurrent); Z85.9 Personal history of malignant neoplasm, unspecified; Z90.89 Acquired absence of other organs; Z90.721 Acquired absence of ovaries, unilateral; Z88.1 Allergy status to other antibiotic agents; Z88.5 Allergy status to narcotic agent; Z88.2 Allergy status to sulfonamides
CPT/HCPCS: 36415; 74000; 80048; 80053; 80307; 81001; 83690; 83735; 85025; 93005; 94640; 94760; 96361; 96365; 96375; 99285; J0500; J1885; J2405; J3010; J7030; J7042; J7060; J7620; J7626; S0028; G0479

== ENCOUNTER 2017-11-24 22:05 | Emergency (ER) | payer OTHER, MEDICAID ==
[2017-11-24] MEDS: KETOROLAC 30 MG/ML INJ. IV ×2 (23:12)
[2017-11-24] MEDS: FAMOTIDINE 20 MG/2 ML VIAL IVP ×2 (23:12)
[2017-11-24] MEDS: PROMETHAZINE 12.5 MG in IV NORMAL SALINE 50ML 50 ML IV (23:12)
[2017-11-24] MEDS: IV NORMAL SALINE 1000ML BAG 1,000 ML IV ×2 (23:12)
[2017-11-24 23:32] LABS: ANION GAP 7 (6-14); BLOOD UREA NITROGEN 5 mg/dL (7-20); BUN/CREATININE RATIO 6 (6-20); CARBON DIOXIDE 28 mmol/L (21-32); CHLORIDE 108 mmol/L (98-107); CREATININE 0.8 mg/dL (0.6-1.0); GFR 79.4; GLUCOSE 87 mg/dL (70-99); POTASSIUM 3.8 mmol/L (3.5-5.1); SODIUM 143 mmol/L (136-145)
[2017-11-24 23:37] LABS: ALBUMIN 2.5 g/dL (3.4-5.0); ALBUMIN/GLOBULIN RATIO 0.8 (1.0-1.7); ALK PHOS 110 U/L (46-116); ALT (SGPT) 26 U/L (14-59); AST (SGOT) 24 U/L (15-37); LIPASE 250 U/L (73-393); TOTAL BILIRUBIN 0.2 mg/dL (0.2-1.0); TOTAL PROTEIN 5.7 g/dL (6.4-8.2)
[2017-11-25 00:06] LABS: ADD MAN DIFF? NO; HEMATOCRIT 43.6 % (36.0-47.0); HEMOGLOBIN 14.5 g/dL (12.0-15.5); RED BLOOD COUNT 4.88 x10^6/uL (3.50-5.40)
[2017-11-25 00:07] LABS: BASO # 0.1 x10^3/uL (0.0-0.2); BASO % 1 % (0-3); EOS # 0.3 x10^3/uL (0.0-0.7); EOS % 4 % (0-3); LYMPH # 2.4 x10^3/uL (1.0-4.8); LYMPH % 34 % (24-48); MEAN CORPUSCULAR HEMOGLOBIN 30 pg (25-35); MEAN CORPUSCULAR HGB CONC 33 g/dL (31-37); MEAN CORPUSCULAR VOLUME 90 fL (79-100); MONO # 0.5 x10^3/uL (0.0-1.1); MONO % 7 % (0-9); NEUT # 3.8 x10^3uL (1.8-7.7); NEUT % 54 % (31-73); PLATELET COUNT 254 x10^3/uL (140-400); RED CELL DISTRIBUTION WIDTH 14.7 % (11.5-14.5)
[2017-11-25 00:16] LABS: C-REACTIVE PROTEIN 0.5 mg/L (0-3.3)
[2017-11-25] MEDS ORDERED: ZIPRASIDONE IM 20 MG VIAL. IM ×2 (00:30)
[2017-11-25] MEDS: ONDANSETRON PF 4 MG/2 ML VIAL. IV ×2 (01:09)
== END 2017-11-25 01:30 | disposition home or self-care (01) ==
LOC: ER 11-25 01:30
DX: R11.2 Nausea with vomiting, unspecified (principal); G89.29 Other chronic pain; R19.7 Diarrhea, unspecified; R10.9 Unspecified abdominal pain; K31.84 Gastroparesis; K21.9 Gastro-esophageal reflux disease without esophagitis; K58.9 Irritable bowel syndrome, unspecified; J45.909 Unspecified asthma, uncomplicated; F12.10 Cannabis abuse, uncomplicated; Z90.49 Acquired absence of other specified parts of digestive tract; Z90.710 Acquired absence of both cervix and uterus; Z90.722 Acquired absence of ovaries, bilateral; Z88.1 Allergy status to other antibiotic agents; Z88.2 Allergy status to sulfonamides; Z88.8 Allergy status to other drugs, medicaments and biological substances; Z88.5 Allergy status to narcotic agent
CPT/HCPCS: 36415; 74022; 80053; 83690; 85025; 86140; 96365; 96366; 96375; 99285-25; J1885; J2405; J2550; J7030; S0028

== ENCOUNTER 2018-03-12 21:11 | Emergency (ER) | payer OTHER, MEDICAID ==
[2018-03-12 22:02] LABS: ADD MAN DIFF? NO
[2018-03-12 22:09] LABS: BASO # 0.1 x10^3/uL (0.0-0.2); BASO % 1 % (0-3); EOS # 0.2 x10^3/uL (0.0-0.7); EOS % 4 % (0-3); HEMATOCRIT 38.8 % (36.0-47.0); HEMOGLOBIN 13.1 g/dL (12.0-15.5); LYMPH # 2.5 x10^3/uL (1.0-4.8); LYMPH % 42 % (24-48); MEAN CORPUSCULAR HEMOGLOBIN 30 pg (25-35); MEAN CORPUSCULAR HGB CONC 34 g/dL (31-37); MEAN CORPUSCULAR VOLUME 88 fL (79-100); MONO # 0.5 x10^3/uL (0.0-1.1); MONO % 9 % (0-9); NEUT # 2.6 x10^3uL (1.8-7.7); NEUT % 44 % (31-73); PLATELET COUNT 210 x10^3/uL (140-400); RED BLOOD COUNT 4.43 x10^6/uL (3.50-5.40); RED CELL DISTRIBUTION WIDTH 13.4 % (11.5-14.5)
[2018-03-12 22:14] LABS: ANION GAP 11 (6-14); BLOOD UREA NITROGEN 4 mg/dL (7-20); BUN/CREATININE RATIO 4 (6-20); CARBON DIOXIDE 27 mmol/L (21-32); CHLORIDE 107 mmol/L (98-107); GFR 61.4; GLUCOSE 85 mg/dL (70-99); POTASSIUM 3.8 mmol/L (3.5-5.1); SODIUM 145 mmol/L (136-145)
[2018-03-12 22:20] LABS: ALBUMIN 2.8 g/dL (3.4-5.0); ALBUMIN/GLOBULIN RATIO 0.8 (1.0-1.7); ALK PHOS 124 U/L (46-116); ALT (SGPT) 25 U/L (14-59); AST (SGOT) 29 U/L (15-37); LIPASE 272 U/L (73-393); TOTAL BILIRUBIN 0.2 mg/dL (0.2-1.0); TOTAL PROTEIN 6.2 g/dL (6.4-8.2)
[2018-03-12 22:21] LABS: TROPONINI < 0.017 ng/mL (0.000-0.055)
[2018-03-12] MEDS: IV NORMAL SALINE 1000ML BAG 1,000 ML IV (22:22)
[2018-03-12] MEDS: KETOROLAC 15 MG/ML VIAL. IV (22:23)
[2018-03-12] MEDS: ACETAMINOPHEN/CODEINE 300/30MG TABLET. PO (22:23)
[2018-03-12] MEDS: ONDANSETRON PF 4 MG/2 ML VIAL. IV (22:23)
[2018-03-12 22:36] LABS: MAGNESIUM 1.7 mg/dL (1.8-2.4)
[2018-03-12 22:46] LABS: BILIRUBIN,URINE NEGATIVE (NEG); COLOR,URINE YELLOW; GLUCOSE,URINE NEGATIVE (NEG); NITRITE,URINE NEGATIVE (NEG); PH,URINE 8.5; PROTEIN,URINE 30 mg/dL (NEG-TRACE); UROBILINOGEN,URINE 0.2 mg/dL (0.2 mg/dL)
[2018-03-12 22:51] LABS: CLARITY,URINE CLEAR
[2018-03-12 22:53] LABS: BACTERIA,URINE FEW /HPF (0-FEW); RBC,URINE 0 /HPF (0-2); SQUAMOUS EPITHELIAL CELL,UR OCC /LPF; WBC,URINE OCC /HPF (0-4)
[2018-03-12] MEDS: MAGNESIUM SULFATE 1GM 100 ML IV (23:49)
[2018-03-13] MEDS: fentaNYL PF VIAL 100 MCG/2 ML VIAL IV (00:23)
== END 2018-03-13 01:15 | disposition home or self-care (01) ==
LOC: ER 03-13 01:15
DX: K31.84 Gastroparesis (principal); J45.909 Unspecified asthma, uncomplicated; E87.6 Hypokalemia; F17.210 Nicotine dependence, cigarettes, uncomplicated; Z90.710 Acquired absence of both cervix and uterus; Z98.51 Tubal ligation status; Z88.2 Allergy status to sulfonamides; Z88.1 Allergy status to other antibiotic agents; Z88.6 Allergy status to analgesic agent; Z88.8 Allergy status to other drugs, medicaments and biological substances
CPT/HCPCS: 36415; 80053; 81001; 83690; 83735; 84484; 85025; 96361; 96365; 96375; 99284-25; J1885; J2405; J3010; J3475; J7030

== ENCOUNTER → 2018-06-03 | Emergency (ER) | payer OTHER, MEDICAID ==
[~2018-06-03] VITALS: Ht 167.6 cm; Wt 68.9 kg
[~2018-06-03] MED LIST changes: -CLON1TAB3 PO; +CLON1TAB4 PO; +CONTRAST GIVEN. MC PRN; +DICL100T PO; +IOHEXOL 300 MG/ML 100ML VIAL. IV ONE; +MORPHINE SULFATE 10 MG/ML VIAL. IV ONE; +MORPHINE SULFATE 2 MG/ML VIAL. ONE; +MORPHINE SULFATE 4 MG/ML VIAL. ONE; +ONDANSETRON PF 4 MG/2 ML VIAL. IV ONE
[2018-06-03 19:25] VITALS: BP 126/83
[2018-06-03 20:29] LABS: BASO % 1 % (0-3); EOS # 0.2 x10^3/uL (0.0-0.7); EOS % 4 % (0-3); HEMATOCRIT 41.8 % (36.0-47.0); HEMOGLOBIN 14.2 g/dL (12.0-15.5); LYMPH # 2.2 x10^3/uL (1.0-4.8); LYMPH % 40 % (24-48); MEAN CORPUSCULAR HEMOGLOBIN 30 pg (25-35); MEAN CORPUSCULAR HGB CONC 34 g/dL (31-37); MEAN CORPUSCULAR VOLUME 88 fL (79-100); MONO # 0.5 x10^3/uL (0.0-1.1); MONO % 9 % (0-9); NEUT # 2.6 x10^3uL (1.8-7.7); NEUT % 47 % (31-73); PLATELET COUNT 234 x10^3/uL (140-400); RED BLOOD COUNT 4.75 x10^6/uL (3.50-5.40); RED CELL DISTRIBUTION WIDTH 14.3 % (11.5-14.5); WHITE BLOOD COUNT 5.6 x10^3/uL (4.0-11.0)
[2018-06-03 20:30] LABS: BILIRUBIN,URINE NEGATIVE (NEG); CLARITY,URINE CLEAR; COLOR,URINE YELLOW; NITRITE,URINE NEGATIVE (NEG); PROTEIN,URINE NEGATIVE (NEG-TRACE); UROBILINOGEN,URINE 0.2 mg/dL (0.2 mg/dL)
[2018-06-03 20:37] LABS: BACTERIA,URINE 0 /HPF (0-FEW); RBC,URINE 0 /HPF (0-2); SQUAMOUS EPITHELIAL CELL,UR OCC /LPF
[2018-06-03 20:44] LABS: CALCIUM 8.9 mg/dL (8.5-10.1); GFR 61.1; POTASSIUM 3.6 mmol/L (3.5-5.1)
--- NOTE | 2018-06-03 20:46 | PHYS DOC ---
Past Medical History Past Medical History: Asthma, Cancer, Other Additional Past Medical Histor: HYPOKALEMIA, GASTROPARESIS Past Surgical History: Hysterectomy Additional Past Surgical Histo: PELVIC MESH,HERNIA,L OVARY & FALLOPIAN TUBE REMOVED Alcohol Use: None Drug Use: None Adult General Chief Complaint Chief Complaint: ABDOMINAL PAIN HPI HPI Patient is a 43 year old female who presents with abdominal pain, nausea, vomiting. The patient has a known history of gastroparesis. She has had multiple abdominal surgeries. Today, she presents to the emergency department complaining of generalized abdominal pain and distention. She has been having symptoms over the last 3 weeks. She states she has been vomiting about 6 times daily. She has been using Compazine at home but only with minimal relief. She has been having diarrhea which she states is baseline and not different than normal. She denies hematochezia or melena. She has no hematemesis. Ordinarily, the patient is followed by Dr. Anderson but states she has been unable to go there because her insurance lapsed. She has had no evaluation over the last 3 weeks otherwise. Denies urinary symptoms. Review of Systems Review of Systems Constitutional: Denies fever or chills Eyes: Denies change in visual acuity HENT: Denies nasal congestion or sore throat Respiratory: Denies cough or shortness of breath Cardiovascular: No additional information not addressed in HPI GI: as documented above : Denies dysuria or hematuria Musculoskeletal: denies back pain Integument: Denies rash or skin lesions Neurologic: Denies headache Endocrine: Denies polyuria All other systems were reviewed and found to be within normal limits, except as documented in this note. Current Medications Current Medications Current Medications Medications (Trade) Dose Ordered Sig/Anmol Start Time Stop Time Status Last Admin Dose Admin Info (CONTRAST GIVEN -- Rx MONITORING) 1 each PRN DAILY PRN 06/03/18 20:45 06/05/18 20:44 Iohexol (Omnipaque 300 Mg/ml) 75 ml 1X ONCE 06/03/18 20:45 06/03/18 20:46 DC 06/03/18 20:58 75 ML Morphine Sulfate (Morphine Sulfate) 4 mg STK-MED ONCE 06/03/18 22:26 06/04/18 00:41 DC Ondansetron HCl (Zofran) 4 mg 1X ONCE 06/03/18 20:30 06/03/18 20:31 DC 06/03/18 20:43 4 MG Allergies Allergies Allergies Coded Allergies Type Severity Reaction Last Updated Verified Sulfa (Sulfonamide Antibiotics) Allergy Intermediate hives 01/27/16 Yes ciprofloxacin Allergy Intermediate swelling 01/27/16 Yes ciprofloxacin HCl Allergy Intermediate swelling 01/27/16 Yes Haloperidol Lactate Adverse Reaction Intermediate Altered Mental Status Yes erythromycin base Adverse Reaction Intermediate "IT CAUSED ME TO BE BED SICK FOR A WEEK" 01/27/16 Yes haloperidol Adverse Reaction Intermediate Altered Mental Status 01/27/16 Yes quetiapine fumarate Adverse Reaction Intermediate "jolts going throgh my body "06/08/17 Yes somatropin Adverse Reaction Intermediate Acathasia 01/27/16 Yes Physical Exam Physical Exam Constitutional: chronically ill-appearing, obese female. No acute distress. No active emesis HENT: Normocephalic, atraumatic, bilateral external ears normal, oropharynx moist Eyes: PERRLA, EOMI, conjunctiva normal Neck: Normal range of motion Cardiovascular:Heart rate regular rhythm Lungs & Thorax: Bilateral breath sounds clear to auscultation Abdomen: Bowel sounds normal, soft, subjectively TTP but no guarding or rebound Skin: Warm, dry, no erythema, no rash. Back: No tenderness Extremities: No tenderness, no cyanosis, no clubbing, ROM intact, no edema Neurologic: Alert and oriented X 3 Psychologic: Affect normal Current Patient Data Vital Signs Vital Signs Date Time Temp Pulse Resp B/P (MAP) Pulse Ox O2 Delivery O2 Flow Rate FiO2 06/03/18 20:44 19 99 Room Air 06/03/18 19:25 97.7 93 126/83 (97) 97.7 Lab Values Laboratory Tests Test 06/03/18 19:25 06/03/18 19:50 Urine Collection Type Unknown Urine Color Yellow Urine Clarity Clear Urine pH 8.0 Urine Specific [place] <=1.005 Urine Protein Negative mg/dL (NEG-TRACE) Urine Glucose (UA) Negative mg/dL (NEG) Urine Ketones (Stick) Negative mg/dL (NEG) Urine Blood Negative (NEG) Urine Nitrite Negative (NEG) Urine Bilirubin Negative (NEG) Urine Urobilinogen Dipstick 0.2 mg/dL (0.2 mg/dL) Urine Leukocyte Esterase Trace (NEG) Urine RBC 0 /HPF (0-2) Urine WBC 1-4 /HPF (0-4) Urine Squamous Epithelial Cells Occ /LPF Urine Bacteria 0 /HPF (0-FEW) White Blood Count 5.6 x10^3/uL (4.0-11.0) Red Blood Count 4.75 x10^6/uL (3.50-5.40) Hemoglobin 14.2 g/dL (12.0-15.5) Hematocrit 41.8 % (36.0-47.0) Mean Corpuscular Volume 88 fL (79-100) Mean Corpuscular Hemoglobin 30 pg (25-35) Mean Corpuscular Hemoglobin Concent 34 g/dL (31-37) Red Cell Distribution Width 14.3 % (11.5-14.5) Platelet Count 234 x10^3/uL (140-400) Neutrophils (%) (Auto) 47 % (31-73) Lymphocytes (%) (Auto) 40 % (24-48) Monocytes (%) (Auto) 9 % (0-9) Eosinophils (%) (Auto) 4 % (0-3) H Basophils (%) (Auto) 1 % (0-3) Neutrophils # (Auto) 2.6 x10^3uL (1.8-7.7) Lymphocytes # (Auto) 2.2 x10^3/uL (1.0-4.8) Monocytes # (Auto) 0.5 x10^3/uL (0.0-1.1) Eosinophils # (Auto) 0.2 x10^3/uL (0.0-0.7) Basophils # (Auto) 0.0 x10^3/uL (0.0-0.2) Sodium Level 142 mmol/L (136-145) Potassium Level 3.6 mmol/L (3.5-5.1) Chloride Level 106 mmol/L (98-107) Carbon Dioxide Level 28 mmol/L (21-32) Anion Gap 8 (6-14) Blood Urea Nitrogen 3 mg/dL (7-20) L Creatinine 1.0 mg/dL (0.6-1.0) Estimated GFR (Cockcroft-Gault) 61.1 Glucose Level 86 mg/dL (70-99) Calcium Level 8.9 mg/dL (8.5-10.1) Total Bilirubin 0.2 mg/dL (0.2-1.0) Direct Bilirubin 0.1 mg/dL (0.0-0.2) Aspartate Amino Transferase (AST) 38 U/L (15-37) H Alanine Aminotransferase (ALT) 30 U/L (14-59) Alkaline Phosphatase 181 U/L (46-116) H Total Protein 6.4 g/dL (6.4-8.2) Albumin 2.7 g/dL (3.4-5.0) L Lipase 151 U/L (73-393) Laboratory Tests 06/03/18 19:50 Laboratory Tests 06/03/18 19:50 EKG EKG [] Radiology/Procedures Radiology/Procedures FINDINGS: Heart is normal in size. No pericardial or pleural effusion. Clear lung bases. Moderate sliding hiatal hernia. Liver, spleen, gallbladder, pancreas, adrenals and kidneys are within normal limits. No retroperitoneal or pelvic adenopathy. Anterior abdominal wall hernia repair. Laxity of anterior midline abdominal wall seen. Status post hysterectomy. No free pelvic fluid or ascites. No bowel obstruction. Urinary bladder within normal limits. No pneumoperitoneum. No suspicious bony lesion. IMPRESSION: 1. Stable moderate sliding hiatal hernia. 2. Evidence of previous anterior abdominal wall hernia repair. Course & Med Decision Making Course & Med Decision Making Pertinent Labs and Imaging studies reviewed. (See chart for details) 20:30: Patient is seen and examined. She is complaining of a flare of her irritable bowel syndrome. She also has a positive history for prior bowel obstruction. Standard abdominal pain workup is ordered. Morphine for pain. Zofran for nausea. The patient's electronic medical record does list an allergy to morphine but the patient states she has had morphine without difficulties in the past. The patient was in the emergency Department during some of down time procedures so some of her documentation is scanned into the record. The patient was evaluated in the emergency department for abdominal pain. There were no acute findings on her CT scan or her lab panel. She does have a history of chronic abdominal pain. The physical exam of her abdomen was completely benign. I discussed all results with the patient. She did not have a good reason for admission other than for symptom control. The patient was given the option of discharge home versus admission. The patient did not desire admission this evening. She was discharged home with some Phenergan and [place] for symptom control. She was advised to follow-up with her primary care doctor, Dr. Anderson. Otherwise, she will return to the ER for any new or worsening symptoms. Dragon Disclaimer Dragon Disclaimer This electronic medical record was generated, in whole or in part, using a voice recognition dictation system. Departure Departure Referrals: ANGEL ANDERSON Jr, MD (PCP) ELSIE THOMAS DO Jun 03, 2018 20:46
[2018-06-03 20:50] LABS: ALBUMIN 2.7 g/dL (3.4-5.0); DIRECT BILIRUBIN 0.1 mg/dL (0.0-0.2); TOTAL BILIRUBIN 0.2 mg/dL (0.2-1.0); TOTAL PROTEIN 6.4 g/dL (6.4-8.2)
--- NOTE | 2018-06-04 00:36 | RAD ---
PQRS Compliance statement: One or more of the following individualized dose reduction techniques were utilized for this examination: 1. Automated exposure control. 2. Adjustment of the mA and/or kV according to patient size. 3. Use of iterative reconstruction technique. Indication:LEFT UPPER QUADRANT ABD PAIN AND SWELLING TECHNIQUE: CT abdomen and pelvis with IV contrast with multiplanar reformats. COMPARISON: 04/15/2017 FINDINGS: Heart is normal in size. No pericardial or pleural effusion. Clear lung bases. Moderate sliding hiatal hernia. Liver, spleen, gallbladder, pancreas, adrenals and kidneys are within normal limits. No retroperitoneal or pelvic adenopathy. Anterior abdominal wall hernia repair. Laxity of anterior midline abdominal wall seen. Status post hysterectomy. No free pelvic fluid or ascites. No bowel obstruction. Urinary bladder within normal limits. No pneumoperitoneum. No suspicious bony lesion. IMPRESSION: 1. Stable moderate sliding hiatal hernia. 2. Evidence of previous anterior abdominal wall hernia repair. Electronically signed by: Ervin Srinivasan DO (06/03/2018 9:44 PM) [facility]
== END | disposition home or self-care (01) ==
LOC: ER 18:45
DX: K58.9 Irritable bowel syndrome, unspecified (principal); G89.29 Other chronic pain; K44.9 Diaphragmatic hernia without obstruction or gangrene
CPT/HCPCS: 36415; 74177; 80048; 80076; 81001; 83690; 85025; 96374; 96375; 99285; J2270; J2405; Q9967

== ENCOUNTER 2018-08-20 10:43 | Emergency (ER) | payer OTHER, MEDICAID ==
[~2018-08-20] VITALS: Ht 167.6 cm; Wt 68.0 kg
[~2018-08-20 10:43] MED LIST changes: -CONTRAST GIVEN. MC PRN; -IOHEXOL 300 MG/ML 100ML VIAL. IV ONE; -MORPHINE SULFATE 10 MG/ML VIAL. IV ONE; -MORPHINE SULFATE 2 MG/ML VIAL. ONE; -MORPHINE SULFATE 4 MG/ML VIAL. ONE; -ONDANSETRON PF 4 MG/2 ML VIAL. IV ONE; -OXCA300T PO; +OXCA300T19 PO
[2018-08-20] MEDS ORDERED: FAMOTIDINE 20 MG/2 ML VIAL IVP ONE (11:45)
[2018-08-20] MEDS ORDERED: MORPHINE SULFATE 4 MG/ML VIAL. IV ONE ×2 (11:45→13:15)
[2018-08-20] MEDS ORDERED: ONDANSETRON PF 4 MG/2 ML VIAL. IV ONE ×2 (11:45→13:15)
[2018-08-20] MEDS ORDERED: KETOROLAC 30 MG/ML VIAL. IV ONE (11:45)
[2018-08-20 11:47] LABS: BASO % 0 % (0-3); BILIRUBIN,URINE NEGATIVE (NEG); CLARITY,URINE CLEAR; COLOR,URINE YELLOW; EOS # 0.1 x10^3/uL (0.0-0.7); EOS % 3 % (0-3); HEMATOCRIT 43.5 % (36.0-47.0); HEMOGLOBIN 14.6 g/dL (12.0-15.5); LYMPH # 1.3 x10^3/uL (1.0-4.8); LYMPH % 30 % (24-48); MEAN CORPUSCULAR HEMOGLOBIN 31 pg (25-35); MEAN CORPUSCULAR HGB CONC 34 g/dL (31-37); MEAN CORPUSCULAR VOLUME 92 fL (79-100); MONO # 0.4 x10^3/uL (0.0-1.1); MONO % 9 % (0-9); NEUT # 2.7 x10^3uL (1.8-7.7); NEUT % 58 % (31-73); NITRITE,URINE NEGATIVE (NEG); PLATELET COUNT 262 x10^3/uL (140-400); PROTEIN,URINE NEGATIVE (NEG-TRACE); RED BLOOD COUNT 4.75 x10^6/uL (3.50-5.40); RED CELL DISTRIBUTION WIDTH 16.5 % (11.5-14.5); UROBILINOGEN,URINE 0.2 mg/dL (0.2 mg/dL); WHITE BLOOD COUNT 4.6 x10^3/uL (4.0-11.0)
[2018-08-20 11:58] LABS: BARBITURATES NEG (NEG); BENZODIAZEPINES NEG (NEG); CANNABINOIDS NEG (NEG); COCAINE NEG (NEG); METHADONE NEG (NEG); OPIATES NEG (NEG); PHENCYCLIDINE NEG (NEG)
[2018-08-20 11:59] LABS: AMPHETAMINE/METHAMPHETAMINE NEG (NEG)
[2018-08-20 12:02] LABS: SQUAMOUS EPITHELIAL CELL,UR OCC /LPF
[2018-08-20 12:03] LABS: BACTERIA,URINE 0 /HPF (0-FEW); RBC,URINE 0 /HPF (0-2); WBC,URINE 0 /HPF (0-4)
--- NOTE | 2018-08-20 12:34 | RAD ---
ACUTE ABDOMEN SERIES History: Abdominal pain, cough, virus Comparison: March 12, 2018 chest radiographs and acute abdominal series 11/25/2017 Findings: Single view of the chest and single supine and upright views of the abdomen are submitted. There is no infiltrate, pleural fluid, pneumothorax. Heart size is stable, within normal limits. There is relative lung hyperexpansion. No free air is identified. There are again multiple clips of the abdomen and pelvis. Bowel is not considered significantly dilated. Impression: 1. There is a nonobstructive bowel gas pattern. There is no significant infiltrate. Electronically signed by: Reid Yun MD (08/20/2018 12:30 PM) [id number]
[2018-08-20 12:35] LABS: CALCIUM 8.9 mg/dL (8.5-10.1); CREATININE 1.1 mg/dL (0.6-1.0); GFR 54.7; POTASSIUM 4.2 mmol/L (3.5-5.1)
[2018-08-20 12:40] LABS: ALBUMIN 2.4 g/dL (3.4-5.0); ALBUMIN/GLOBULIN RATIO 0.7 (1.0-1.7); TOTAL BILIRUBIN 0.4 mg/dL (0.2-1.0)
--- NOTE | 2018-08-20 13:00 | PHYS DOC ---
Past Medical History Past Medical History: Asthma, Cancer, Other Additional Past Medical Histor: HYPOKALEMIA, GASTROPARESIS Past Surgical History: Appendectomy, Hysterectomy Additional Past Surgical Histo: PELVIC MESH,HERNIA,L OVARY & FALLOPIAN TUBE REMOVED Additional Information: 4 cigarettes daily Alcohol Use: None Drug Use: None Adult General Chief Complaint Chief Complaint: ABDOMINAL PAIN [facility] HPI Patient is a 43 year old female with history of gastroparesis, multiple abdominal surgeries, who presents today complaining of nausea and vomiting that began yesterday. Patient is also complaining over 10 out of 10 generalized abdominal pain. Patient states she is concerned her potassium could be low. Patient denies any hematemesis. Denies any diarrhea. She is also complaining of generalized headache that has been going on since yesterday when she started developing nasal congestion. Patient denies this being the worst headache in her life. She describes the headache as throbbing and intermittent mostly on the frontal aspect of her head. Review of Systems Review of Systems Constitutional: Denies fever or chills [] Eyes: Denies change in visual acuity, redness, or eye pain [] HENT: Denies nasal congestion or sore throat [] Respiratory: Denies cough or shortness of breath [] Cardiovascular: No additional information not addressed in HPI [] GI: Records chronic abdominal pain, nausea vomiting, denies bloody stools or diarrhea [] : Denies dysuria or hematuria [] Musculoskeletal: Denies back pain or joint pain [] Integument: Denies rash or skin lesions [] Neurologic: Reports headache, denies focal weakness or sensory changes [] Endocrine: Denies polyuria or polydipsia [] All other systems were reviewed and found to be within normal limits, except as documented in this note. Current Medications Current Medications Current Medications Medications (Trade) Dose Ordered Sig/Anmol Start Time Stop Time Status Last Admin Dose Admin Famotidine (Pepcid Vial) 20 mg 1X ONCE 08/20/18 11:45 08/20/18 11:46 DC 08/20/18 12:28 20 MG Ketorolac Tromethamine (Toradol 30mg Vial) 30 mg 1X ONCE 08/20/18 11:45 08/20/18 11:46 DC 08/20/18 12:27 30 MG Morphine Sulfate (Morphine Sulfate) 4 mg 1X ONCE 08/20/18 13:15 08/20/18 13:18 DC 08/20/18 13:25 4 MG Ondansetron HCl (Zofran) 4 mg 1X ONCE 08/20/18 13:15 08/20/18 13:18 DC 08/20/18 13:25 4 MG Allergies Allergies Allergies Coded Allergies Type Severity Reaction Last Updated Verified Sulfa (Sulfonamide Antibiotics) Allergy Intermediate hives 01/27/16 Yes ciprofloxacin Allergy Intermediate swelling 01/27/16 Yes ciprofloxacin HCl Allergy Intermediate swelling 01/27/16 Yes Haloperidol Lactate Adverse Reaction Intermediate Altered Mental Status Yes erythromycin base Adverse Reaction Intermediate "IT CAUSED ME TO BE BED SICK FOR A WEEK" 01/27/16 Yes haloperidol Adverse Reaction Intermediate Altered Mental Status 01/27/16 Yes quetiapine fumarate Adverse Reaction Intermediate "jolts going throgh my body "06/08/17 Yes somatropin Adverse Reaction Intermediate Acathasia 01/27/16 Yes Physical Exam Physical Exam Constitutional: Well developed, well nourished, no acute distress, non-toxic appearance. [] HENT: Normocephalic, atraumatic, bilateral external ears normal, oropharynx moist, no oral exudates, nose normal. [] Eyes: PERRLA, EOMI, conjunctiva normal, no discharge. [] Neck: Normal range of motion, no tenderness, supple, no stridor. [] Cardiovascular:Heart rate regular rhythm, no murmur [] Lungs & Thorax: Bilateral breath sounds clear to auscultation [] Abdomen: Bowel sounds normal, soft, diffuse tenderness throughout the abdomen worse on the epigastric region, no masses, no pulsatile masses. [] Skin: Warm, dry, no erythema, no rash. [] Back: No tenderness, no CVA tenderness. [] Extremities: No tenderness, no cyanosis, no clubbing, ROM intact, no edema. [] Neurologic: Alert and oriented X 3, normal motor function, normal sensory function, no focal deficits noted. Cranial nerves II through XII intact Psychologic: Affect normal, judgement normal, mood normal. [] Current Patient Data Vital Signs Vital Signs Date Time Temp Pulse Resp B/P (MAP) Pulse Ox O2 Delivery O2 Flow Rate FiO2 08/20/18 13:25 18 98 Room Air 08/20/18 13:05 72 122/81 (95) 08/20/18 11:14 97.6 97.6 Lab Values Laboratory Tests Test 08/20/18 11:25 08/20/18 12:15 White Blood Count 4.6 x10^3/uL (4.0-11.0) Red Blood Count 4.75 x10^6/uL (3.50-5.40) Hemoglobin 14.6 g/dL (12.0-15.5) Hematocrit 43.5 % (36.0-47.0) Mean Corpuscular Volume 92 fL (79-100) Mean Corpuscular Hemoglobin 31 pg (25-35) Mean Corpuscular Hemoglobin Concent 34 g/dL (31-37) Red Cell Distribution Width 16.5 % (11.5-14.5) H Platelet Count 262 x10^3/uL (140-400) Neutrophils (%) (Auto) 58 % (31-73) Lymphocytes (%) (Auto) 30 % (24-48) Monocytes (%) (Auto) 9 % (0-9) Eosinophils (%) (Auto) 3 % (0-3) Basophils (%) (Auto) 0 % (0-3) Neutrophils # (Auto) 2.7 x10^3uL (1.8-7.7) Lymphocytes # (Auto) 1.3 x10^3/uL (1.0-4.8) Monocytes # (Auto) 0.4 x10^3/uL (0.0-1.1) Eosinophils # (Auto) 0.1 x10^3/uL (0.0-0.7) Basophils # (Auto) 0.0 x10^3/uL (0.0-0.2) Urine Collection Type Unknown Urine Color Yellow Urine Clarity Clear Urine pH 8.0 Urine Specific [place] <=1.005 Urine Protein Negative mg/dL (NEG-TRACE) Urine Glucose (UA) Negative mg/dL (NEG) Urine Ketones (Stick) Negative mg/dL (NEG) Urine Blood Negative (NEG) Urine Nitrite Negative (NEG) Urine Bilirubin Negative (NEG) Urine Urobilinogen Dipstick 0.2 mg/dL (0.2 mg/dL) Urine Leukocyte Esterase Negative (NEG) Urine RBC 0 /HPF (0-2) Urine WBC 0 /HPF (0-4) Urine Squamous Epithelial Cells Occ /LPF Urine Bacteria 0 /HPF (0-FEW) Urine Opiates Screen Neg (NEG) Urine Methadone Screen Neg (NEG) Urine Barbiturates Neg (NEG) Urine Phencyclidine Screen Neg (NEG) Urine Amphetamine/Methamphetamine Neg (NEG) Urine Benzodiazepines Screen Neg (NEG) Urine Cocaine Screen Neg (NEG) Urine Cannabinoids Screen Neg (NEG) Urine Ethyl Alcohol Neg (NEG) Sodium Level 141 mmol/L (136-145) Potassium Level 4.2 mmol/L (3.5-5.1) Chloride Level 105 mmol/L (98-107) Carbon Dioxide Level 26 mmol/L (21-32) Anion Gap 10 (6-14) Blood Urea Nitrogen 3 mg/dL (7-20) L Creatinine 1.1 mg/dL (0.6-1.0) H Estimated GFR (Cockcroft-Gault) 54.7 BUN/Creatinine Ratio 3 (6-20) L Glucose Level 106 mg/dL (70-99) H Calcium Level 8.9 mg/dL (8.5-10.1) Total Bilirubin 0.4 mg/dL (0.2-1.0) Aspartate Amino Transferase (AST) 37 U/L (15-37) Alanine Aminotransferase (ALT) 25 U/L (14-59) Alkaline Phosphatase 213 U/L (46-116) H Total Protein 6.0 g/dL (6.4-8.2) L Albumin 2.4 g/dL (3.4-5.0) L Albumin/Globulin Ratio 0.7 (1.0-1.7) L Lipase 128 U/L (73-393) Ethyl Alcohol Level < 10 mg/dL (0-10) Laboratory Tests 08/20/18 11:25 Laboratory Tests 08/20/18 12:15 EKG EKG [] Radiology/Procedures Radiology/Procedures []PROCEDURE: ACUTE ABDOMEN SERIES ACUTE ABDOMEN SERIES History: Abdominal pain, cough, virus Comparison: March 12, 2018 chest radiographs and acute abdominal series 11/25/2017 Findings: Single view of the chest and single supine and upright views of the abdomen are submitted. There is no infiltrate, pleural fluid, pneumothorax. Heart size is stable, within normal limits. There is relative lung hyperexpansion. No free air is identified. There are again multiple clips of the abdomen and pelvis. Bowel is not considered significantly dilated. Impression: 1. There is a nonobstructive bowel gas pattern. There is no significant infiltrate. Electronically signed by: Nelia Rivera MD (08/20/2018 12:30 PM) [id number] DICTATED and SIGNED BY: NELIA RIVERA MD DATE: 08/20/18 1228 Course & Med Decision Making Course & Med Decision Making Pertinent Labs and Imaging studies reviewed. (See chart for details) This is a 43-year-old female patient with history of gastroparesis presenting to the ED today with generalized abdominal pain, nausea vomiting since yesterday. Patient is also complaining of a generalized headache as well as upper respiratory infection symptoms. Patient's workup in the ED was negative for any acute findings. She is well known to this ED for gastroparesis. She was seen in May and had a negative CT of the abdomen and pelvic. Discussed with the patient's benefits and risk of another CT of the abdomen. We opted for acute abdominal series considering upper respiratory infection symptoms as well as abdominal pain. She has had multiple CTs of her abdomen and pelvis, her symptoms are well controlled in the ED. We talked about admission versus discharge. She prefers to get a dose of pain medicine and be discharged. She was discharged with pseudoephedrine for her cold symptoms, Zofran and dicyclomine. Instructed to follow-up with her PCP as well as GI doctor provided as soon as possible. Dragon Disclaimer Dragon Disclaimer This electronic medical record was generated, in whole or in part, using a voice recognition dictation system. Departure Departure Impression: Primary Impression: Gastroparesis Additional Impressions: Chronic abdominal pain Headache Disposition: 01 HOME, SELF-CARE Condition: STABLE Referrals: ANGEL ANDERSON Jr, MD (PCP) Follow-up with your doctor or one of the doctors provided on your discharge paperwork LEW CURTIS MD follow up as soon as possible Patient Instructions: Abdominal Pain, Gastroparesis, Headache, FAQs Additional Instructions: You were evaluated in the emergency room with symptoms consistent of gastroparesis and an upper respiratory infection symptoms. Please follow-up with the primary care doctor from the list provided as well as a mamma logist in your discharge. Come back to the ED at any point symptoms worsen. Scripts Ondansetron (ZOFRAN ODT) 4 Mg Tab.rapdis 1 TAB SL Q8HRS, #15 TAB Prov: DANNY MALCOLM APRN 08/20/18 Dicyclomine Hcl (DICYCLOMINE HCL) 20 Mg Tablet 1 TAB PO TID, #30 TAB 0 Refills Prov: DANNY MALCOLM CORNELIO 08/20/18 Attending Signature Attending Signature I have reviewed the PA/MOLDER FITTING's note and plan of care. I was available for consultation as needed during the patient's visit in the emergency department. I agree with the clinical impression, plan, and disposition. Problem Qualifiers Additional Impressions: Headache Headache type: unspecified Headache chronicity pattern: acute headache Intractability: not intractable Qualified Codes: R51 - Headache DANNY MALCOLM CORNELIO Aug 20, 2018 13:00 JAMES ORTEGA DO Aug 22, 2018 17:27
[2018-08-20 13:05] VITALS: BP 122/81
[2018-08-20] MEDS ORDERED: DICY20TA3 PO (13:11)
[2018-08-20] MEDS ORDERED: ONDA4TAB10 SL (13:11)
== END 2018-08-20 13:30 | disposition home or self-care (01) ==
LOC: ER 10:43
DX: K31.84 Gastroparesis (principal); G89.29 Other chronic pain; R51 Headache; J45.909 Unspecified asthma, uncomplicated; F17.210 Nicotine dependence, cigarettes, uncomplicated; Z90.89 Acquired absence of other organs; Z90.710 Acquired absence of both cervix and uterus; Z98.890 Other specified postprocedural states; Z98.51 Tubal ligation status; Z88.1 Allergy status to other antibiotic agents; Z88.2 Allergy status to sulfonamides; Z88.8 Allergy status to other drugs, medicaments and biological substances
CPT/HCPCS: 36415; 74022; 80053; 80307; 81001; 83690; 85025; 96374; 96375; 96376; 99285; G0480; J1885; J2270; J2405; J3490

== ENCOUNTER 2018-10-21 10:26 | Emergency (ER) | payer OTHER, MEDICAID ==
[~2018-10-21] VITALS: Ht 160 cm; Wt 68.0 kg
[~2018-10-21 10:26] MED LIST changes: +CLON1TAB11 PO; -CLON1TAB4 PO; +DICY20TA3 PO; -GABA-587 PO; +GABA-689 PO; -GABA800T2 PO; +GABA800T5 PO; -PROM12.56 PO; +PROM12.58 PO
[2018-10-21] MEDS ORDERED: FAMOTIDINE 20 MG/2 ML VIAL IVP ONE (11:15)
[2018-10-21] MEDS ORDERED: MORPHINE SULFATE 4 MG/ML VIAL. IV ONE (11:15)
[2018-10-21] MEDS ORDERED: IV NORMAL SALINE 1000ML BAG 1,000 ML IV ONE ×2 (11:15→14:15)
[2018-10-21] MEDS ORDERED: ONDANSETRON PF 4 MG/2 ML VIAL. IV ONE (11:15)
--- NOTE | 2018-10-21 11:44 | PHYS DOC ---
Past Medical History Past Medical History: Asthma, Cancer, Other Additional Past Medical Histor: HYPOKALEMIA, GASTROPARESIS Past Surgical History: Appendectomy, Hysterectomy Additional Past Surgical Histo: PELVIC MESH,HERNIA,L OVARY & FALLOPIAN TUBE REMOVED Alcohol Use: None Drug Use: None Adult General Chief Complaint Chief Complaint: NAUSEA/VOMITING/DIARRHA HPI HPI Patient is a 43 year old female with history of cancer, hysterectomy, abdominal hernia repair with removal of mesh, gastroparesis who presents with epigastric pain, persistent nausea and vomiting for the past hours. Patient states symptoms began with upper respiratory tract illness with posttussive emesis. Patient now reports nausea postprandial emesis. No chills, sweats. No diarrhea. No other acute symptoms or complaints. Patient states she is unable to keep her nausea medication down. [] Review of Systems Review of Systems Review symptoms as per history of present illness. All other review symptoms are negative. All other systems were reviewed and found to be within normal limits, except as documented in this note. Current Medications Current Medications Current Medications Medications (Trade) Dose Ordered Sig/Anmol Start Time Stop Time Status Last Admin Dose Admin Famotidine (Pepcid Vial) 20 mg 1X ONCE 10/21/18 11:15 10/21/18 11:16 DC 10/21/18 12:12 20 MG Fentanyl Citrate (Fentanyl 2ml Vial) 75 mcg 1X ONCE 10/21/18 13:00 10/21/18 13:01 DC 10/21/18 13:20 75 MCG Morphine Sulfate (Morphine Sulfate) 4 mg 1X ONCE 10/21/18 11:15 10/21/18 11:16 DC 10/21/18 12:13 4 MG Ondansetron HCl (Zofran) 8 mg 1X ONCE 10/21/18 11:15 10/21/18 11:16 DC 10/21/18 12:13 8 MG Prochlorperazine Edisylate (Compazine) 10 mg 1X ONCE 10/21/18 13:00 10/21/18 13:01 DC 10/21/18 13:25 10 MG Sodium Chloride 1,000 ml @ 1,000 mls/hr 1X ONCE 10/21/18 14:15 10/21/18 15:14 10/21/18 14:05 1,000 MLS/HR Allergies Allergies Allergies Coded Allergies Type Severity Reaction Last Updated Verified Sulfa (Sulfonamide Antibiotics) Allergy Intermediate hives 4/21/16 Yes ciprofloxacin Allergy Intermediate swelling 01/27/16 Yes ciprofloxacin HCl Allergy Intermediate swelling 01/27/16 Yes Haloperidol Lactate Adverse Reaction Intermediate Altered Mental Status Yes erythromycin base Adverse Reaction Intermediate "IT CAUSED ME TO BE BED SICK FOR A WEEK" 01/27/16 Yes haloperidol Adverse Reaction Intermediate Altered Mental Status 01/27/16 Yes quetiapine fumarate Adverse Reaction Intermediate "jolts going throgh my body "06/08/17 Yes somatropin Adverse Reaction Intermediate Acathasia 01/27/16 Yes Physical Exam Physical Exam Constitutional: Well developed, well nourished, no acute distress, non-toxic appearance. [] HENT: Normocephalic, atraumatic, bilateral external ears normal, oropharynx moist, nose normal. [] Eyes: PERRLA, EOMI, conjunctiva normal. [] Neck: Normal range of motion, no tenderness. [] Cardiovascular:Heart rate regular rhythm, no murmur [] Lungs & Thorax: Bilateral breath sounds clear to auscultation [] Abdomen: Bowel sounds normal, soft, left upper quadrant pain/tenderness. [] Skin: Warm, dry, no erythema, no rash. [] Back: No tenderness. [] Extremities: No tenderness. [] Neurologic: Alert and oriented X 3, normal motor function, normal sensory function, no focal deficits noted. [] Psychologic: Affect normal, judgement normal, mood normal. [] Current Patient Data Vital Signs Vital Signs Date Time Temp Pulse Resp B/P (MAP) Pulse Ox O2 Delivery O2 Flow Rate FiO2 10/21/18 13:15 94 107/66 (80) 98 Room Air 10/21/18 10:46 98.7 16 98.7 Lab Values Laboratory Tests Test 10/21/18 11:40 10/21/18 11:41 White Blood Count 4.0 x10^3/uL (4.0-11.0) Red Blood Count 4.74 x10^6/uL (3.50-5.40) Hemoglobin 15.2 g/dL (12.0-15.5) Hematocrit 43.7 % (36.0-47.0) Mean Corpuscular Volume 92 fL (79-100) Mean Corpuscular Hemoglobin 32 pg (25-35) Mean Corpuscular Hemoglobin Concent 35 g/dL (31-37) Red Cell Distribution Width 14.5 % (11.5-14.5) Platelet Count 146 x10^3/uL (140-400) Neutrophils (%) (Auto) 50 % (31-73) Lymphocytes (%) (Auto) 39 % (24-48) Monocytes (%) (Auto) 8 % (0-9) Eosinophils (%) (Auto) 2 % (0-3) Basophils (%) (Auto) 1 % (0-3) Neutrophils # (Auto) 2.0 x10^3uL (1.8-7.7) Lymphocytes # (Auto) 1.6 x10^3/uL (1.0-4.8) Monocytes # (Auto) 0.3 x10^3/uL (0.0-1.1) Eosinophils # (Auto) 0.1 x10^3/uL (0.0-0.7) Basophils # (Auto) 0.0 x10^3/uL (0.0-0.2) Sodium Level 142 mmol/L (136-145) Potassium Level 3.7 mmol/L (3.5-5.1) Chloride Level 104 mmol/L (98-107) Carbon Dioxide Level 29 mmol/L (21-32) Anion Gap 9 (6-14) Blood Urea Nitrogen 6 mg/dL (7-20) L Creatinine 0.9 mg/dL (0.6-1.0) Estimated GFR (Cockcroft-Gault) 69.0 BUN/Creatinine Ratio 7 (6-20) Glucose Level 101 mg/dL (70-99) H Calcium Level 8.8 mg/dL (8.5-10.1) Total Bilirubin 1.0 mg/dL (0.2-1.0) Aspartate Amino Transferase (AST) 125 U/L (15-37) H Alanine Aminotransferase (ALT) 67 U/L (14-59) H Alkaline Phosphatase 275 U/L (46-116) H Total Protein 6.7 g/dL (6.4-8.2) Albumin 2.3 g/dL (3.4-5.0) L Albumin/Globulin Ratio 0.5 (1.0-1.7) L Lipase 187 U/L (73-393) POC Urine HCG, Qualitative Hcg negative (Negative) Laboratory Tests 10/21/18 11:40 Laboratory Tests 10/21/18 11:40 EKG EKG [] Radiology/Procedures Radiology/Procedures [t] Course & Med Decision Making Course & Med Decision Making Pertinent Labs and Imaging studies reviewed. (See chart for details) [Vomiting in the ED, some improvement with treatment. Remained soft, nonsurgical. Recommend supportive care with the follow-up. Return precautions reviewed.] Dragon Disclaimer Dragon Disclaimer This electronic medical record was generated, in whole or in part, using a voice recognition dictation system. Departure Departure Impression: Primary Impression: Abdominal pain Additional Impression: Nausea & vomiting Disposition: HOME, SELF-CARE Condition: GOOD Referrals: ANGEL ANDERSON Jr, MD (PCP) Patient Instructions: Abdominal Pain (Nonspecific) Additional Instructions: You were evaluated in the emergency department for abdominal pain nausea and vomiting. Lab work was performed is nondiagnostic. Please take nausea medication as directed and follow-up with your PCP for further evaluation and treatment.] Abdomen Scripts Ondansetron Hcl (ZOFRAN) 4 Mg Tablet 1 TAB PO Q6HRS, #10 TAB 0 Refills Prov: AMALIA SERRANO DO 10/21/18 Problem Qualifiers AMALIA SERRANO DO Oct 21, 2018 11:44
[2018-10-21 12:41] LABS: BASO % 1 % (0-3); EOS # 0.1 x10^3/uL (0.0-0.7); EOS % 2 % (0-3); HEMATOCRIT 43.7 % (36.0-47.0); HEMOGLOBIN 15.2 g/dL (12.0-15.5); LYMPH # 1.6 x10^3/uL (1.0-4.8); LYMPH % 39 % (24-48); MEAN CORPUSCULAR HEMOGLOBIN 32 pg (25-35); MEAN CORPUSCULAR HGB CONC 35 g/dL (31-37); MEAN CORPUSCULAR VOLUME 92 fL (79-100); MONO # 0.3 x10^3/uL (0.0-1.1); MONO % 8 % (0-9); NEUT % 50 % (31-73); PLATELET COUNT 146 x10^3/uL (140-400); RED BLOOD COUNT 4.74 x10^6/uL (3.50-5.40); RED CELL DISTRIBUTION WIDTH 14.5 % (11.5-14.5)
[2018-10-21 12:49] LABS: CALCIUM 8.8 mg/dL (8.5-10.1); CREATININE 0.9 mg/dL (0.6-1.0); POTASSIUM 3.7 mmol/L (3.5-5.1)
[2018-10-21 12:54] LABS: ALBUMIN 2.3 g/dL (3.4-5.0); ALBUMIN/GLOBULIN RATIO 0.5 (1.0-1.7); TOTAL PROTEIN 6.7 g/dL (6.4-8.2)
[2018-10-21] MEDS ORDERED: fentaNYL PF VIAL 100 MCG/2 ML VIAL IV ONE (13:00)
[2018-10-21] MEDS ORDERED: PROCHLORPERAZINE 10 MG/2 ML VIAL. IV ONE (13:00)
[2018-10-21] MEDS ORDERED: ONDA4TAB7 PO (13:53)
[2018-10-21] MEDS ORDERED: HYDR-3135 PO (13:53)
[2018-10-21 14:15] VITALS: BP 94/52
--- NOTE | 2018-10-22 06:54 | EKG ---
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
[2019-03-25] MEDS ORDERED: ONDA4TAB7 PO/SL (13:42)
[2019-03-25] MEDS ORDERED: METO10TA81 PO (13:42)
[2019-03-25] MEDS ORDERED: RANI150C PO (13:42)
[2019-03-25] MEDS ORDERED: ALBU2.5V8 INH (13:49)
== END 2018-10-21 14:57 | disposition home or self-care (01) ==
LOC: ER 10:26
DX: R10.13 Epigastric pain (principal); R11.2 Nausea with vomiting, unspecified; J45.909 Unspecified asthma, uncomplicated; Z88.1 Allergy status to other antibiotic agents; Z88.2 Allergy status to sulfonamides; Z88.8 Allergy status to other drugs, medicaments and biological substances; Z90.89 Acquired absence of other organs; Z90.710 Acquired absence of both cervix and uterus; Z98.890 Other specified postprocedural states
CPT/HCPCS: 36415; 80053; 81025; 83690; 85025; 93005; 96361; 96374; 96375; 99284; J0780; J2270; J2405; J3010; J3490; J7030

== ENCOUNTER 2018-12-23 08:44 | Emergency (ER) | payer OTHER, MEDICAID ==
[~2018-12-23] VITALS: Ht 167.6 cm; Wt 68.0 kg
[~2018-12-23 08:44] MED LIST changes: +HYDR-3135 PO
[2018-12-23] MEDS ORDERED: KETOROLAC 30 MG/ML VIAL. IV ONE (09:15)
[2018-12-23] MEDS ORDERED: ONDANSETRON PF 4 MG/2 ML VIAL. IV ONE ×2 (09:15→10:15)
[2018-12-23] MEDS ORDERED: IPRATRPIUM/ALBUTEROL 0.5/2.5MG 3 ML NEBU. NEB ONE (09:15)
[2018-12-23 09:33] LABS: BASO # 0.1 x10^3/uL (0.0-0.2); BASO % 1 % (0-3); EOS # 0.3 x10^3/uL (0.0-0.7); EOS % 5 % (0-3); HEMATOCRIT 42.7 % (36.0-47.0); HEMOGLOBIN 14.1 g/dL (12.0-15.5); LYMPH # 2.6 x10^3/uL (1.0-4.8); LYMPH % 38 % (24-48); MEAN CORPUSCULAR HEMOGLOBIN 32 pg (25-35); MEAN CORPUSCULAR HGB CONC 33 g/dL (31-37); MEAN CORPUSCULAR VOLUME 96 fL (79-100); MONO # 0.6 x10^3/uL (0.0-1.1); MONO % 9 % (0-9); NEUT # 3.2 x10^3uL (1.8-7.7); NEUT % 47 % (31-73); PLATELET COUNT 326 x10^3/uL (140-400); RED BLOOD COUNT 4.44 x10^6/uL (3.50-5.40); RED CELL DISTRIBUTION WIDTH 14.4 % (11.5-14.5); WHITE BLOOD COUNT 6.8 x10^3/uL (4.0-11.0)
[2018-12-23 09:44] LABS: CALCIUM 8.9 mg/dL (8.5-10.1); CREATININE 0.9 mg/dL (0.6-1.0); POTASSIUM 3.1 mmol/L (3.5-5.1)
[2018-12-23] MEDS ORDERED: IV NORMAL SALINE 1000ML BAG 1,000 ML IV ONE (09:45)
[2018-12-23 09:47] LABS: BILIRUBIN,URINE NEGATIVE (NEG); CLARITY,URINE CLEAR; COLOR,URINE YELLOW; NITRITE,URINE NEGATIVE (NEG); PH,URINE 8.5; PROTEIN,URINE NEGATIVE (NEG-TRACE); UROBILINOGEN,URINE 0.2 mg/dL (0.2 mg/dL)
[2018-12-23 09:49] LABS: ALBUMIN 2.1 g/dL (3.4-5.0); ALBUMIN/GLOBULIN RATIO 0.5 (1.0-1.7); TOTAL BILIRUBIN 0.3 mg/dL (0.2-1.0); TOTAL PROTEIN 6.4 g/dL (6.4-8.2)
[2018-12-23 09:55] LABS: BACTERIA,URINE 0 /HPF (0-FEW); RBC,URINE 0 /HPF (0-2); SQUAMOUS EPITHELIAL CELL,UR OCC /LPF; WBC,URINE 0 /HPF (0-4)
[2018-12-23] MEDS ORDERED: fentaNYL PF VIAL 100 MCG/2 ML VIAL IV ONE (10:15)
[2018-12-23] MEDS ORDERED: POTASSIUM CHLORIDE 20 MEQ TABLET.ER. PO ONE (10:15)
[2018-12-23] MEDS ORDERED: ONDA4TAB7 PO (10:17)
--- NOTE | 2018-12-23 10:17 | PHYS DOC ---
Past Medical History Past Medical History: Asthma, Cancer, Endometriosis, Other Additional Past Medical Histor: HYPOKALEMIA, GASTROPARESIS Past Surgical History: Appendectomy, Hysterectomy Additional Past Surgical Histo: PELVIC MESH,HERNIA,L OVARY & FALLOPIAN TUBE REMOVED Alcohol Use: None Drug Use: Marijuana Adult General Chief Complaint Chief Complaint: NAUSEA/VOMITING/DIARRHA HPI HPI Patient is a 43 year old female who presents with headache and abdominal pain. The patient is well known to this facility. She has chronic pain issues. The patient does have a history of gastroparesis. The patient has also been having nausea. She does not have a current primary care provider or GI specialist. The patient is not currently having an asthma attack but states that she would like to have a breathing treatment while she is in the emergency department. Review of Systems Review of Systems Constitutional: Denies fever or chills [] Eyes: Denies change in visual acuity, redness, or eye pain [] HENT: Denies nasal congestion or sore throat [] Respiratory: Denies cough or shortness of breath [] Cardiovascular: No additional information not addressed in HPI [] GI: See history of present illness : Denies dysuria or hematuria [] Musculoskeletal: Denies back pain or joint pain [] Integument: Denies rash or skin lesions [] Neurologic: See history of present illness Endocrine: Denies polyuria or polydipsia [] All other systems were reviewed and found to be within normal limits, except as documented in this note. Current Medications Current Medications Current Medications Medications (Trade) Dose Ordered Sig/Anmol Start Time Stop Time Status Last Admin Dose Admin Albuterol/ Ipratropium (Duoneb) 3 ml 1X ONCE 12/23/18 09:15 12/23/18 09:16 DC 12/23/18 09:15 3 ML Fentanyl Citrate (Fentanyl 2ml Vial) 50 mcg 1X ONCE 12/23/18 10:15 12/23/18 10:16 DC 12/23/18 10:20 50 MCG Ketorolac Tromethamine (Toradol 30mg Vial) 30 mg 1X ONCE 12/23/18 09:15 12/23/18 09:16 DC 12/23/18 09:39 30 MG Ondansetron HCl (Zofran) 4 mg 1X ONCE 12/23/18 10:15 12/23/18 10:16 DC 12/23/18 10:20 4 MG Potassium Chloride (Klor-Con) 40 meq 1X ONCE 12/23/18 10:15 12/23/18 10:16 DC 12/23/18 10:21 40 MEQ Sodium Chloride 1,000 ml @ 1,000 mls/hr 1X ONCE 12/23/18 09:45 12/23/18 10:44 DC 12/23/18 09:37 1,000 MLS/HR Allergies Allergies Allergies Coded Allergies Type Severity Reaction Last Updated Verified Sulfa (Sulfonamide Antibiotics) Allergy Intermediate hives 01/27/16 Yes ciprofloxacin Allergy Intermediate swelling 01/27/16 Yes ciprofloxacin HCl Allergy Intermediate swelling 01/27/16 Yes Haloperidol Lactate Adverse Reaction Intermediate Altered Mental Status Yes erythromycin base Adverse Reaction Intermediate "IT CAUSED ME TO BE BED SICK FOR A WEEK" 01/27/16 Yes haloperidol Adverse Reaction Intermediate Altered Mental Status 01/27/16 Yes quetiapine fumarate Adverse Reaction Intermediate "jolts going throgh my body "06/08/17 Yes somatropin Adverse Reaction Intermediate Acathasia 01/27/16 Yes Physical Exam Physical Exam Constitutional: Well developed, well nourished, no acute distress, non-toxic appearance. [] HENT: Normocephalic, atraumatic, bilateral external ears normal, oropharynx moist, no oral exudates, nose normal. [] Eyes: PERRLA, EOMI, conjunctiva normal, no discharge. [] Neck: Normal range of motion, no tenderness, supple, no stridor. [] Cardiovascular:Heart rate regular rhythm, no murmur [] Lungs & Thorax: Bilateral breath sounds clear to auscultation [] Abdomen: Bowel sounds normal, soft, mild generalized tenderness, no masses, no pulsatile masses. [] Skin: Warm, dry, no erythema, no rash. [] Back: No tenderness, no CVA tenderness. [] Extremities: No tenderness, no cyanosis, no clubbing, ROM intact, no edema. [] Neurologic: Alert and oriented X 3, normal motor function, normal sensory function, no focal deficits noted, cranial nerves II through XII are grossly intact. [] Psychologic: Affect normal, judgement normal, mood normal. [] Current Patient Data Vital Signs Vital Signs Date Time Temp Pulse Resp B/P (MAP) Pulse Ox O2 Delivery O2 Flow Rate FiO2 12/23/18 10:27 89 16 116/62 (80) 97 Room Air 12/23/18 08:50 97.4 97.4 Lab Values Laboratory Tests Test 12/23/18 09:20 12/23/18 09:27 12/23/18 09:29 White Blood Count 6.8 x10^3/uL (4.0-11.0) Red Blood Count 4.44 x10^6/uL (3.50-5.40) Hemoglobin 14.1 g/dL (12.0-15.5) Hematocrit 42.7 % (36.0-47.0) Mean Corpuscular Volume 96 fL (79-100) Mean Corpuscular Hemoglobin 32 pg (25-35) Mean Corpuscular Hemoglobin Concent 33 g/dL (31-37) Red Cell Distribution Width 14.4 % (11.5-14.5) Platelet Count 326 x10^3/uL (140-400) Neutrophils (%) (Auto) 47 % (31-73) Lymphocytes (%) (Auto) 38 % (24-48) Monocytes (%) (Auto) 9 % (0-9) Eosinophils (%) (Auto) 5 % (0-3) H Basophils (%) (Auto) 1 % (0-3) Neutrophils # (Auto) 3.2 x10^3uL (1.8-7.7) Lymphocytes # (Auto) 2.6 x10^3/uL (1.0-4.8) Monocytes # (Auto) 0.6 x10^3/uL (0.0-1.1) Eosinophils # (Auto) 0.3 x10^3/uL (0.0-0.7) Basophils # (Auto) 0.1 x10^3/uL (0.0-0.2) Sodium Level 142 mmol/L (136-145) Potassium Level 3.1 mmol/L (3.5-5.1) L Chloride Level 102 mmol/L (98-107) Carbon Dioxide Level 33 mmol/L (21-32) H Anion Gap 7 (6-14) Blood Urea Nitrogen 4 mg/dL (7-20) L Creatinine 0.9 mg/dL (0.6-1.0) Estimated GFR (Cockcroft-Gault) 69.0 BUN/Creatinine Ratio 4 (6-20) L Glucose Level 65 mg/dL (70-99) L Calcium Level 8.9 mg/dL (8.5-10.1) Magnesium Level 2.0 mg/dL (1.8-2.4) Total Bilirubin 0.3 mg/dL (0.2-1.0) Aspartate Amino Transferase (AST) 28 U/L (15-37) Alanine Aminotransferase (ALT) 14 U/L (14-59) Alkaline Phosphatase 189 U/L (46-116) H Total Protein 6.4 g/dL (6.4-8.2) Albumin 2.1 g/dL (3.4-5.0) L Albumin/Globulin Ratio 0.5 (1.0-1.7) L Urine Collection Type Void Urine Color Yellow Urine Clarity Clear Urine pH 8.5 Urine Specific [place] 1.010 Urine Protein Negative mg/dL (NEG-TRACE) Urine Glucose (UA) Negative mg/dL (NEG) Urine Ketones (Stick) Negative mg/dL (NEG) Urine Blood Negative (NEG) Urine Nitrite Negative (NEG) Urine Bilirubin Negative (NEG) Urine Urobilinogen Dipstick 0.2 mg/dL (0.2 mg/dL) Urine Leukocyte Esterase Negative (NEG) Urine RBC 0 /HPF (0-2) Urine WBC 0 /HPF (0-4) Urine Squamous Epithelial Cells Occ /LPF Urine Bacteria 0 /HPF (0-FEW) POC Urine HCG, Qualitative Hcg negative (Negative) Laboratory Tests 12/23/18 09:20 Laboratory Tests 12/23/18 09:20 EKG EKG [] Radiology/Procedures Radiology/Procedures [] Course & Med Decision Making Course & Med Decision Making Pertinent Labs and Imaging studies reviewed. (See chart for details) []The patient was given fluids, a breathing treatment and Zofran the emergency department. She was also given Toradol for pain. The patient states that the Toradol did not relieve her headache. She is asking for narcotic pain medication. The patient was given a dose of Tylenol in the emergency department. She has been discharged home and is to follow-up with a primary care provider for possible referral to a GI specialist. She was also given an inhaler prescription due to the fact that she is out of her Proair inhaler at home. Dragon Disclaimer Dragon Disclaimer This electronic medical record was generated, in whole or in part, using a voice recognition dictation system. Departure Departure Impression: Primary Impression: Chronic abdominal pain Additional Impression: Headache Disposition: 01 HOME, SELF-CARE Condition: STABLE Referrals: UNKNOWN PCP NAME (PCP) Patient Instructions: Chronic Pain Management Additional Instructions: Follow-up with a primary care provider to evaluate and manage your chronic health care needs. Scripts Albuterol Sulfate (Proair Hfa) 8.5 Gm Hfa.aer.ad 1 PUFF INH PRN Q6HRS PRN for SHORTNESS OF BREATH, #1 INHALER Prov: JARRELL WAGGONER APRN 12/23/18 Ondansetron Hcl (ZOFRAN) 4 Mg Tablet 1 TAB PO Q6HRS for nausea, #20 TAB Prov: JARRELL WAGGONER APRN 12/23/18 Problem Qualifiers JARRELL WAGGONER APRN Dec 23, 2018 10:17
[2018-12-23] MEDS ORDERED: ALBU2.5V8 INH (10:21)
[2018-12-23 10:27] VITALS: BP 116/62
== END 2018-12-23 10:30 | disposition home or self-care (01) ==
LOC: ER 08:44
DX: G89.29 Other chronic pain (principal); R10.84 Generalized abdominal pain; R51 Headache; R11.2 Nausea with vomiting, unspecified; J45.909 Unspecified asthma, uncomplicated; Z90.89 Acquired absence of other organs; Z90.710 Acquired absence of both cervix and uterus; Z88.2 Allergy status to sulfonamides; Z88.1 Allergy status to other antibiotic agents; Z88.8 Allergy status to other drugs, medicaments and biological substances
CPT/HCPCS: 36415; 80053; 81001; 81025; 83735; 85025; 94640; 96361; 96374; 96375; 96376; 99284; J1885; J2405; J3010; J7030; J7620